=== PATIENT | male | born 1950 | race Caucasian/White ===

== ENCOUNTER 2016-09-22 12:42 | Inpatient (IN) | payer MEDICARE, OTHER ==
[~2016-09-22] VITALS: Ht 182.9 cm; Wt 85.4 kg
[2016-09-22] VITALS (10 sets, daily range): BP systolic 130–145; BP diastolic 69–85; PULSE 90–104; RESP 11–17; TEMP 97.1–97.6; O2SAT 94–100
[~2016-09-22 12:42] MED LIST: APIX5TAB PO; EX-L15TA PO; GLIP5TAB8 PO; LORA-361 PO; METO25TA6 PO; NEXI20CA PO; OXYC-395 PO; SPIRCAP INH; [UNRECOGNIZED DRUG - OTHER] PO
[2016-09-22] MEDS ORDERED: ESCI10TA PO (13:26)
[2016-09-22] MEDS ORDERED: DEXA1TAB PO (13:26)
[2016-09-22] MEDS ORDERED: OXYC1CON3 PO (13:29)
[2016-09-22 13:45] LABS: AUTOMATED NEUTROPHIL # 4.6 TH/MM3 (1.8-7.7); BASOPHIL % 0.9 % (0.0-2.0); EOSINOPHIL # 0.1 TH/MM3 (0-0.4); EOSINOPHIL % 1.4 % (0.0-4.0); HEMATOCRIT 30.1 % (39.0-51.0); LYMPH % 4.6 % (9.0-44.0); LYMPHOCYTE # 0.2 TH/MM3 (1.0-4.8); MEAN CELL VOLUME 96.4 FL (80.0-100.0); MEAN CORPUSCULAR HEMOGLOBIN 32.9 PG (27.0-34.0); MEAN CORPUSCULAR HGB CONC 34.1 % (32.0-36.0); NEUT % 88.1 % (16.0-70.0); PLATELET COUNT 63 TH/MM3 (150-450); RED BLOOD COUNT 3.12 MIL/MM3 (4.50-5.90); RED CELL DISTRIBUTION WIDTH 27.8 % (11.6-17.2); WHITE BLOOD COUNT 5.2 TH/MM3 (4.0-11.0)
[2016-09-22 13:48] LABS: HEMO FLAGS AUTO DIFF
[2016-09-22 13:52] LABS: ALT (GPT) 31 U/L (12-78); ANION GAP 8 MEQ/L (5-15); AST (GOT) 53 U/L (15-37); BICARBONATE 33.9 MEQ/L (21.0-32.0); BLOOD UREA NITROGEN 19 MG/DL (7-18); CHLORIDE 88 MEQ/L (98-107); GLOMERULAR FILTRATION RATE 57 ML/MIN (>89); MAGNESIUM 1.3 MG/DL (1.5-2.5); POTASSIUM 3.7 MEQ/L (3.5-5.1); SODIUM (NA) 130 MEQ/L (136-145)
[2016-09-22 13:56] LABS: APTT (PATIENT) 30.3 SEC (24.3-30.1); INTERNATIONAL NORMALIZED RATIO 1.1 RATIO; PROTHROMBIN TIME - PATIENT 12.1 SEC (9.8-11.6)
[2016-09-22 14:02] LABS: ALKALINE PHOSPHATASE 105 U/L (45-117); CREATINE KINASE 307 U/L (39-308); TOTAL BILIRUBIN ADULT 0.9 MG/DL (0.2-1.0)
--- NOTE | 2016-09-22 14:09 | RADRPT ---
EXAM DATE/TIME: 09/22/2016 13:19 [facility] COMPARISON: CHEST SINGLE AP, December 16, 2015, 16:31. INDICATIONS : Chest pain. MEDICAL HISTORY : None. SURGICAL HISTORY : None. ENCOUNTER: Initial ACUITY: 1 day PAIN SCORE: 2/10 LOCATION: Bilateral chest FINDINGS: The cardiac silhouette is enlarged in transverse diameter. The lungs are free of acute parenchymal op acity. No effusions are identified. Aibiqb-h-Sowv is in place via right subclavian approach with its tip in the superior vena cava. There is prominence of the aortic knob is with calcification character istic of atherosclerotic vascular disease. CONCLUSION: 1. Cardiomegaly. No acute pulmonary disease. Jesse Loya MD on September 22, 2016 at 14:07 Board Certified Radiologist. This report was verified electronically.
[2016-09-22 14:14] LABS: CKMB 6.8 NG/ML (0.5-3.6)
--- NOTE | 2016-09-22 14:19 | RADRPT ---
EXAM DATE/TIME: 09/22/2016 13:37 [facility] COMPARISON: CT BRAIN W/O CONTRAST, August 13, 2016, 13:34. INDICATIONS : Altered mental status today. RADIATION DOSE: 48.78 CTDIvol (mGy) MEDICAL HISTORY : Cardiovascular disease. Hypertension. Chronic obstructive pulmonary disease.diabetes,head and neck ca ncer SURGICAL HISTORY : None. ENCOUNTER: Initial ACUITY: 1 day PAIN SCALE: 5/10 LOCATION: cranial TECHNIQUE: Multiple contiguous axial images were obtained of the head. Using automated exposure control and adj ustment of the mA and/or kV according to patient size, radiation dose was kept as low as reasonably a chievable to obtain optimal diagnostic quality images. FINDINGS: CEREBRUM: The ventricles are normal for age. No evidence of midline shift, mass lesion, hemorrhage or acute in farction. No extra-axial fluid collections are seen. POSTERIOR FOSSA: The cerebellum and brainstem are intact. The 4th ventricle is midline. The cerebellopontine angle i s unremarkable. EXTRACRANIAL: The visualized portion of the orbits is intact. SKULL: The calvaria is intact. No evidence of skull fracture. CONCLUSION: 1. No evidence of acute intracranial pathology. No masses are identified. Jesse Loya MD on September 22, 2016 at 14:16 Board Certified Radiologist. This report was verified electronically.
[2016-09-22 14:24] LABS: PLATELET ESTIMATE SMEAR LOW (NORMAL); SCAN/DIFF AUTO DIFF CONFIRMED
[2016-09-22 14:25] LABS: PLATELET MORPHOLOGY NORMAL (NORMAL)
--- NOTE | 2016-09-22 14:26 | PD ---
HPI Chief Complaint: Back/ Neck Pain or Injury Time Seen by Provider: 13:14 Travel History International Travel<30 days: No Contact w/Intl Traveler<30days: No Traveled to known affect area: No History of Present Illness HPI 66-year-old male came to the emergency room with history of lethargy, somnolence for past couple days. Patient has history of malignancy with metastases and is on palliative chemotherapy. He has received radiation to his both sides of the neck for neck cancer. 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 His is his caregiver and has been giving him pain medication as needed for back pain relief. He received one pill prior to coming to the emergency room. He also got an Ambien. This morning since he was lethargic but uncomfortable. His daughter is here as well and they have informed me the patient has not been eating and drinking very well for the past couple days given his mental status. No fever or chills. No history of cough, vomiting or diarrhea. Patient has required admission in the past. [facility] Past Medical History Narrative Medical List of his past medical history as reviewed from the nursing note. Hx Anticoagulant Therapy: Yes (eliquis) Anemia: Yes Asthma: No Atrial Fibrillation: Yes Heart Rhythm Problems: Yes (AFIB) Cancer: Yes (head and neck) Cardiac Catheterization: Yes Cardiovascular Problems: Yes (AFIB, ANGIOPLASTY) Chemotherapy: Yes (09/16/16) COPD: Yes Coronary Artery Disease: Yes Diabetes: Yes Patient Takes Glucophage: No Diminished Hearing: Yes (UNALAKLEET) Endocrine: No Gastrointestinal Disorders: Yes (ANEMIA) Genitourinary: Yes (RENAL INSUFFICIENCY) Hepatitis: No Hiatal Hernia: No Hypertension: Yes Immune Disorder: No Medical other: Yes (A FIB,REFLUX AND BARRETTS ESOPHAGUS) Musculoskeletal: No Neurologic: No Psychiatric: No Reproductive: No Respiratory: Yes (COPD) Immunizations Current: Yes Myocardial Infarction: Yes ("SILENT") Radiation Therapy: Yes Renal Failure: Yes (NEW WORK UP FOR IMPAIRED KIDNEY FUNCTION) Thyroid Disease: No Tetanus Vaccination: Unknown Influenza Vaccination: No ?: Not Past Surgical History Abdominal Surgery: No AICD: No Cardiac Surgery: No Ear Surgery: No Endocrine Surgery: No Eye Surgery: No Genitourinary Surgery: No Gynecologic Surgery: No Joint Replacement: No Oral Surgery: No Pacemaker: No Thoracic Surgery: No Other Surgery: Yes ( port insertion, PED TUBE INCERTION/REMOVAL ) Social History Alcohol Use: Yes (DAILY ) Tobacco Use: No (QUIT-+NICOTINE LOZENGERS) Substance Use: No (quit alcohol in Sep) Allergies-Medications (Allergen,Severity, Reaction): Coded Allergies: Contrast Media (Verified Allergy, Mild, Hives, 08/13/16) Iodine (Verified Allergy, Unknown, 09/22/16) Comments List of his allergies reviewed from the nursing note. Reported Meds & Prescriptions Reported Meds & Active Scripts Active Reported Oxycodone Liq (Oxycodone HCl) 20 Mg/Ml Conc 5 Mg PO Q4H PRN Dexamethasone 1 Mg Tab 1 Mg PO DAILY Escitalopram (Escitalopram Oxalate) 10 Mg Tab 10 Mg PO DAILY Claritin (Loratadine) 10 Mg Tab 10 Mg PO DAILY Nexium (Esomeprazole DR) 20 Mg Capdr 20 Mg PO DAILY Glipizide 5 Mg Tab 5 Mg PO BIDAC Take 30 minutes before a meal Spiriva Handihaler (Tiotropium Inh) 18 Mcg Cap 18 Mcg INH DAILY 1 capsule = 18 mcg Ex-Lax (Sennosides) 15 Mg Tab 15 Mg PO BID PRN Metoprolol Succinate ER 24 HR (Metoprolol Succinate) 25 Mg Tab 25 Mg PO BID Narrative Medication List of his home medications reviewed from the nursing note. Review of Systems Except as stated in HPI: all other systems reviewed are Neg Physical Exam Narrative GENERAL: Somnolent, obese, slow in answering questions SKIN: Dry, jaundice HEAD: Atraumatic. Normocephalic. EYES: Pupils equal and round. Scleral icterus present. No injection or drainage. ENT: No nasal bleeding or discharge. Mucous membranes pink and moist. "baron facies" NECK: Trachea midline. No JVD. CARDIOVASCULAR: Regular rate and rhythm. No murmur appreciated. RESPIRATORY: No accessory muscle use. Clear to auscultation. Breath sounds equal bilaterally. GASTROINTESTINAL: Abdomen soft, non-tender, nondistended. Hepatic and splenic margins not palpable. MUSCULOSKELETAL: No obvious deformities. No clubbing. No cyanosis. No edema. NEUROLOGICAL: Somnolent, lethargic, GCS of 12. No obvious cranial nerve deficits. Motor grossly within normal limits. Slow speech. PSYCHIATRIC: Unable to assess. Data Data Last Documented VS Vital Signs Date Time Temp Pulse Resp B/P Pulse Ox O2 Delivery O2 Flow Rate FiO2 09/22/16 14:01 97.1 09/22/16 13:08 99 Nasal Cannula 2 09/22/16 13:08 92 16 09/22/16 12:51 132/69 Orders Electrocardiogram (09/22/16 12:51) Complete Blood Count With Diff (09/22/16 12:51) Comprehensive Metabolic Panel (09/22/16 12:51) Ckmb (Isoenzyme) Profile (09/22/16 12:51) Troponin I (09/22/16 12:51) Prothrombin Time / Inr (Pt) (09/22/16 12:51) Act Partial Throm Time (Ptt) (09/22/16 12:51) Blood Culture (09/22/16 12:51) Lipase (09/22/16 12:51) Urinalysis - C+S If Indicated (09/22/16 12:51) Magnesium (Mg) (09/22/16 12:51) Thyroid Stimulating Hormone (09/22/16 12:51) Chest, Single Ap (09/22/16 12:51) Ct Brain W/O Iv Contrast(Rout) (09/22/16 12:51) Iv Access Insert/Monitor (09/22/16 12:51) Ecg Monitoring (09/22/16 12:51) Oximetry (09/22/16 12:51) Ammonia (09/22/16 13:15) Type And Screen (09/22/16 13:15) Ct Abd/Pel W/O Iv Contrast (09/22/16 ) Ct Thorax/ Chest Wo Iv Contras (09/22/16 ) CKMB (09/22/16 13:20) CKMB% (09/22/16 13:20) Admit To Inpatient (09/22/16 ) Vital Signs (Adult) Q4H (09/22/16 14:18) Activity Oob With Assistance (09/22/16 14:18) Diet 1800 Ada Cons Carb (09/22/16 Dinner) Sodium Chloride 0.9% Flush (Ns Flush) (09/22/16 14:30) Sodium Chloride 0.9% Flush (Ns Flush) (09/22/16 21:00) Acetaminophen (Tylenol) (09/22/16 14:30) Docusate Sodium (Colace) (09/22/16 15:00) Sennosides (Senokot) (09/22/16 14:30) Temazepam (Restoril) (09/22/16 14:30) Case Management Consult (09/22/16 14:18) Scd Bilateral/Knee High UNA.BID (09/22/16 14:18) Hector Bilateral/Knee High UNA.QSHIFT (09/22/16 14:18) Oxycodone (Roxicodone) (09/22/16 14:30) Hydromorphone Pf Inj (Dilaudid Pf Inj) (09/22/16 14:30) Oxycodone (Roxicodone) (09/22/16 14:30) Naloxone Inj (Narcan Inj) (09/22/16 14:30) Inpatient Certification (09/22/16 ) Bedside Glucose UNA.AC&HS (09/22/16 14:18) ^ Blood Glucose Goal (Criteria (09/22/16 14:18) ^ Hypoglycemia 51 - 69 Mg/Dl (09/22/16 14:18) ^ Hypoglycemia 50 Mg/Dl Or < (09/22/16 14:18) ^ Notify Dr: Other (09/22/16 14:18) Dextrose 50% In Deneen (Vial) Inj (D50w (Vi (09/22/16 14:30) Glucagon Inj (Glucagon Inj) (09/22/16 14:30) Insulin Aspart Supplemtl Scale (Novolog (09/22/16 16:00) Albuterol-Ipratropium Neb (Duoneb Neb) (09/22/16 14:30) Urinary Catheter Insert/Apply (09/22/16 14:20) Free Thyroxine (T4) (09/22/16 14:20) Levothyroxine Inj (Synthroid Inj) (09/22/16 14:30) Levothyroxine (Synthroid) (09/22/16 14:30) Admit Order (Ed Use Only) (09/22/16 14:23) Labs Laboratory Tests Test 09/22/16 13:20 White Blood Count 5.2 TH/MM3 Red Blood Count 3.12 MIL/MM3 Hemoglobin 10.3 GM/DL Hematocrit 30.1 % Mean Corpuscular Volume 96.4 FL Mean Corpuscular Hemoglobin 32.9 PG Mean Corpuscular Hemoglobin 34.1 % Concent Red Cell Distribution Width 27.8 % Platelet Count 63 TH/MM3 Mean Platelet Volume 8.2 FL Neutrophils (%) (Auto) 88.1 % Lymphocytes (%) (Auto) 4.6 % Monocytes (%) (Auto) 5.0 % Eosinophils (%) (Auto) 1.4 % Basophils (%) (Auto) 0.9 % Neutrophils # (Auto) 4.6 TH/MM3 Lymphocytes # (Auto) 0.2 TH/MM3 Monocytes # (Auto) 0.3 TH/MM3 Eosinophils # (Auto) 0.1 TH/MM3 Basophils # (Auto) 0.0 TH/MM3 CBC Comment AUTO DIFF Differential Comment AUTO DIFF CONFIRMED Platelet Estimate LOW Platelet Morphology Comment NORMAL Prothrombin Time 12.1 SEC Prothromb Time International 1.1 RATIO Ratio Activated Partial 30.3 SEC Thromboplast Time Sodium Level 130 MEQ/L Potassium Level 3.7 MEQ/L Chloride Level 88 MEQ/L Carbon Dioxide Level 33.9 MEQ/L Anion Gap 8 MEQ/L Blood Urea Nitrogen 19 MG/DL Creatinine 1.27 MG/DL Estimat Glomerular Filtration 57 ML/MIN Rate Random Glucose 87 MG/DL Calcium Level 8.3 MG/DL Magnesium Level 1.3 MG/DL Total Bilirubin 0.9 MG/DL Aspartate Amino Transf 53 U/L (AST/SGOT) Alanine Aminotransferase 31 U/L (ALT/SGPT) Alkaline Phosphatase 105 U/L Ammonia LESS THAN 10 MCMOL/L Total Creatine Kinase 307 U/L Creatine Kinase MB 6.8 NG/ML Troponin I 0.06 NG/ML Total Protein 6.8 GM/DL Albumin 3.2 GM/DL Lipase 35 U/L Free Thyroxine 0.18 NG/DL Thyroid Stimulating Hormone 67.200 uIU/ML 3rd Gen Blood Type AB POSITIVE Antibody Screen NEGATIVE MDM Medical Decision Making Medical Screen Exam Complete: Yes Emergency Medical Condition: Yes Medical Record Reviewed: Yes Interpretation(s) Twelve-lead EKG was reviewed by me. Atrial fibrillation, PVCs, normal axis. Heart rate of 99 bpm. Differential Diagnosis Intracranial tumor, intracranial bleed, metabolic abnormalities, worsening of the cancer Narrative Course 2:31 PM patient continues to be somnolent however he is hemodynamically stable. The rectal temperature was 97.5. CAT scan shows a significantly distended bladder but patient does not appear to be in any distress from it. The nurse did ask him to urinate and patient was unable to do so and went back to sleep. I'm concerned that it could be from possible metastasis to the lumbar spine which may be compressing the cord. However the blood test results showed a TSH of 68 which is astronomically high. The daughter confirmed that the patient does not have any known history of hypothyroidism or hyperthyroidism and is not on any medications for it. Given the test result his hypothyroidism would actually explain all his symptoms including the skin color and the somnolence and constipation and loss of appetite. 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 I have ordered IV levothyroxine 600 g and by mouth Synthroid 100 g. Patient will also get 100 mg of IV hydrocortisone as a stress dose and 2 50 cc of IV fluid bolus. I spoke with the hospitalist who will admit this patient to the ICU. I have updated the family regarding the test results. Patient had a Nicole catheter put in and immediately almost a liter of urine came out. Critical Care Narrative Aggregate critical care time was 45 minutes. Time to perform other separately billable procedures was not included in the critical care time. My time did not include minutes spent treating any other patients simultaneously or on activities that did not directly contribute to the patient's treatment. The services I provided to this patient were to treat and/or prevent clinically significant deterioration that could result in: Altered mental status, myxedema coma, malignancy I provided critical care services requiring my management, as noted below: Chart data review, documentation time, medication orders and management, vital sign assessments/reviewing monitor data, ordering and reviewing lab tests, ordering and interpreting/reviewing x-rays and diagnostic studies, care of the patient and discussion of the patient with the admitting physicians. Procedures EKG Prior to Arrival: Yes Diagnosis Primary Impression: Myxedema coma Additional Impressions: Altered mental status Qualified Code: R40.1 - Stupor Urinary retention Admitting Information Admitting Physician Requests: Ester Diaz MD Sep 22, 2016 14:26
--- NOTE | 2016-09-22 14:29 | RADRPT ---
EXAM DATE/TIME: 09/22/2016 13:40 [facility] COMPARISON: No previous studies available for comparison. INDICATIONS : Generalize weakness. ORAL CONTRAST: No oral contrast ingested. RADIATION DOSE: 17.51 CTDIvol (mGy) ; Combined studies - Thorax/Abdomen/Pelvis MEDICAL HISTORY : Cardiovascular disease. Hypertension. Chronic obstructive pulmonary disease.Diabetes. Head and neck c ancer. SURGICAL HISTORY : None. ENCOUNTER: Initial ACUITY: 1 day PAIN SCALE: 5/10 LOCATION: abdomen TECHNIQUE: Volumetric scanning of the abdomen and pelvis was performed. Using automated exposure control and ad justment of the mA and/or kV according to patient size, radiation dose was kept as low as reasonably achievable to obtain optimal diagnostic quality images. FINDINGS: LOWER LUNGS: Very tiny left pleural effusion with bibasilar atelectatic changes. Small pericardial effusion. LIVER: Homogeneous density without lesion. There is no dilation of the biliary tree. No calcified gallston es. SPLEEN: Normal size without lesion. PANCREAS: Atrophic without mass lesion. KIDNEYS: Normal in size and shape. There is no mass, stone, or hydronephrosis. ADRENAL GLANDS: Within normal limits. VASCULAR: There is no aortic aneurysm. BOWEL/MESENTERY: The stomach, small bowel, and colon demonstrate no acute abnormality. There is no free intraperitone al air or fluid. ABDOMINAL WALL: Within normal limits. RETROPERITONEUM: There is no lymphadenopathy. BLADDER: No wall thickening or mass. REPRODUCTIVE: Within normal limits. INGUINAL: There is no lymphadenopathy or hernia. MUSCULOSKELETAL: There is a 4.0 x 2.9 cm soft tissue mass lesion on the left side of the L1 vertebral body with destru ction of the body and adjacent posterior elements. This may actually compromise the left L1 nerve rica t. In addition, dystrophic calcifications are identified in the slightly enlarged left psoas muscle p ossibly representing prior trauma. CONCLUSION: 1. 4.0 x 2.9 cm soft tissue mass lesion involving the left side of the L1 vertebral body. There is pa rtial destruction of both the vertebral body and adjacent posterior elements. The mass may also compr omise the left L1 nerve root. Findings are concerning for a neoplastic process. 2. Small pericardial effusion and small left-sided pleural effusion. Bibasilar atelectatic changes. 3. Dystrophic type calcifications in the enlarged left psoas muscle. Findings are nonspecific but may represent prior trauma with myositis ossificans. An infiltrative process cannot be completely exclud ed, however. Christian Brown MD on September 22, 2016 at 14:14 Board Certified Radiologist. This report was verified electronically.
[2016-09-22] MEDS ORDERED: LEVOTHYROXINE SODIUM 100 MCG TAB PO ONE (14:30)
[2016-09-22] MEDS ORDERED: TEMAZEPAM 15 MG CAP PO PRN (14:30)
[2016-09-22] MEDS ORDERED: RESP: ALBUTEROL 2.5 MG/IPRATROPIUM 0.5 MG NEB (PRN) NEB (14:30)
[2016-09-22] MEDS ORDERED: SODIUM CHLORIDE 0.9% FLUSH 5 ML FLUSH FLUSH PRN (14:30)
[2016-09-22] MEDS ORDERED: SODIUM CHLOR 0.9% 250 ML INJ 250 ML IV ONE (14:30)
[2016-09-22] MEDS ORDERED: GLUCAGON 1 MG/ML VIAL OTHER PRN ×2 (14:30→15:45)
[2016-09-22] MEDS ORDERED: HYDROmorphone HCL PF 1 MG/ML VIAL IV PRN (14:30)
[2016-09-22] MEDS ORDERED: ACETAMINOPHEN 325 MG TAB PO PRN (14:30)
[2016-09-22] MEDS ORDERED: LEVOTHYROXINE SODIUM 100 MCG VIAL IV PUSH ONE (14:30)
[2016-09-22] MEDS ORDERED: SENNOSIDES 8.6 MG TAB PO PRN (14:30)
[2016-09-22] MEDS ORDERED: NALOXONE HCL 0.4 MG/ML AMP IV PRN (14:30)
[2016-09-22] MEDS ORDERED: HYDROCORTISONE SOD SUCCINATE 100 MG VIAL IV PUSH ONE (14:30)
[2016-09-22] MEDS ORDERED: DEXTROSE 50% IN WATER 50 ML VIAL(D50) IV PUSH PRN ×2 (14:30→15:45)
--- NOTE | 2016-09-22 14:41 | RADRPT ---
EXAM DATE/TIME: 09/22/2016 13:40 [facility] COMPARISON: CT scan of the chest from [facility] dated 04-21-16. INDICATIONS : Generalizedq weakness. RADIATION DOSE: 17.59 CTDIvol (mGy) ; Combined studies MEDICAL HISTORY : Cardiovascular disease. Hypertension. Chronic obstructive pulmonary disease. Head and neck cancer,glenny betes SURGICAL HISTORY : None. ENCOUNTER: Initial ACUITY: 1 day PAIN SCALE: 5/10 LOCATION: chest TECHNIQUE: Volumetric scanning of the chest was performed. Using automated exposure control and adjustment of t he mA and/or kV according to patient size, radiation dose was kept as low as reasonably achievable to obtain optimal diagnostic quality images. FINDINGS: LUNGS: Multiple pulmonary nodules in both lungs are definitely no smaller and may actually be slightly large r when compared to the prior. PLEURAE: Small left pleural effusion with minimal bibasilar atelectatic changes. MEDIASTINUM: Mediastinal lymph nodes also show interval increase in size and it now demonstrates scattered areas o f calcification which were not present previously. This may be the effect of interval treatment. Stab le atherosclerotic calcification of the coronary arteries. Small pericardial effusion is definitely l arger when compared to the prior. AXILLAE: Within normal limits. No lymphadenopathy. MUSCULOSKELETAL: 4.1 x 3.4 cm soft tissue mass to the left of L1 with some destruction of the vertebral body and left sided posterior elements of L1. Please see CT scan of the abdomen for further characterization. MISCELLANEOUS: The visualized upper abdominal organs demonstrate no acute abnormality. CONCLUSION: 1. Overall, interval worsening in the tumor burden with multiple pulmonary mass lesions either stable to slightly enlarged when compared to the prior. 2. In addition, mediastinal lymph node/mass lesions are also larger and now show areas of calcificati on possibly related to interval treatment. 3. A 4 cm soft tissue mass lesion in the left of the L1 vertebral body with resultant destruction of the vertebral body and posterior elements was not present previously and is also concerning for metas tatic deposit. 4. Slight enlargement of the patient's pericardial effusion. This is still small, however. 5. Small left-sided pleural effusion. Christian Brown MD on September 22, 2016 at 14:28 Board Certified Radiologist. This report was verified electronically.
[2016-09-22] MEDS: DOCUSATE SODIUM 100 MG CAP PO SCH (15:23)
[2016-09-22] MEDS: INSULIN ASPART SUPPLEMENTAL SCALE SQ SCH ×2 (15:24→20:35)
--- NOTE | 2016-09-22 15:53 | HHI.HP ---
[facility] Norman Bentley MD Admission Diagnosis myxedema coma, malignancy with metastases Diagnoses: (1) Myxedema coma (2) Toxic metabolic encephalopathy (3) History of squamous cell carcinoma (4) Type 2 diabetes mellitus Chief Complaint: Increased somnolence, back pain Travel History International Travel<30 Days: No Contact w/Intl Traveler <30 Da: No Traveled to Known Affected Are: No History of Present Illness 66 year-old male with a history of SCC of right neck s/p radiation and chemotherapy treatment , type 2 diabetes mellitus, hyperlipidemia, hypertension , and stage 2 chronic renal failure was brought to the ED by family member for evaluation of lethargy, somnolence over the past several days. Patient with a history of metastasis to his lumbar spine requiring pain medications, however per family member has not received any narcotics over the past 24 hours and was only treated last night with Ambien. Patient was found to be tremendously lethargic this morning. Over the past several weeks patient has been complaining of worsening coldness. He has had decreased appetite and by mouth intakes over the past several days. There is no report of upper respiratory symptoms. Patient continued to complain of low back pain with decrease urine output output. Abnormal labs include TSH of 67.200 and free T4 of 0.18 with a temperature of 97.1 and a sodium of 1:30. There is no report of GI bleed, hemoptysis or hematuria. Review of Systems Other Other 12 systems reviewed and are negative except for the one mentioned in the history of present illness Past Family Social History Past Medical History Atrial fibrillation with RVR head and neck scc s/p radiation and chemotherapy treatment CAD Type 2 diabetes mellitus Hyperlipidemia Hypertension Hearing loss Anemia Stage 2 renal failure GERD with Cintron's Esophagus COPD "silent" VA Cataracts . Past Surgical History port insertion PEG tube placement Biopsy 2014 Colonoscopy 2012 Endoscopy 2012 Vasectomy 1972 Allergies: Coded Allergies: Contrast Media (Verified Allergy, Mild, Hives, 08/13/16) Iodine (Verified Allergy, Unknown, 09/22/16) Family History Brother diagnosed with mesothelioma No other first degree relatives with malignancy . Social History Used to smoke cigarettes, quit in October 2015, recently re-started. Used to drink alcoholabout 3 cocktails a nightquit earlier this year. Denies any drug abuse. Lives with his . 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 Cool HEAD: Atraumatic. Normocephalic. No temporal or scalp tenderness. EYES: Pupils equal round and reactive. Extraocular motions intact. No scleral icterus. No injection or drainage. ENT: Nose without bleeding, purulent drainage or septal hematoma. Throat without erythema, tonsillar hypertrophy or exudate. Uvula midline. Airway patent. NECK: Trachea midline. No JVD or lymphadenopathy. Supple, nontender, no meningeal signs. CARDIOVASCULAR: Regular rate and rhythm without murmurs, gallops, or rubs. RESPIRATORY: Clear to auscultation. Breath sounds equal bilaterally. No wheezes , rales, or rhonchi. GASTROINTESTINAL: Abdomen soft, non-tender, nondistended. No hepato-splenomegaly , or palpable masses. No guarding. MUSCULOSKELETAL: Extremities without clubbing, cyanosis, or edema. No joint tenderness, effusion, or edema noted. No calf tenderness. Negative Homans sign bilaterally. NEUROLOGICAL: Awake and alert. Cranial nerves II through XII intact. Motor and sensory grossly within normal limits. Five out of 5 muscle strength in all muscle groups. Laboratory Laboratory Tests Test 09/22/16 13:20 White Blood Count 5.2 Red Blood Count 3.12 Hemoglobin 10.3 Hematocrit 30.1 Mean Corpuscular Volume 96.4 Mean Corpuscular Hemoglobin 32.9 Mean Corpuscular Hemoglobin 34.1 Concent Red Cell Distribution Width 27.8 Platelet Count 63 Mean Platelet Volume 8.2 Neutrophils (%) (Auto) 88.1 Lymphocytes (%) (Auto) 4.6 Monocytes (%) (Auto) 5.0 Eosinophils (%) (Auto) 1.4 Basophils (%) (Auto) 0.9 Neutrophils # (Auto) 4.6 Lymphocytes # (Auto) 0.2 Monocytes # (Auto) 0.3 Eosinophils # (Auto) 0.1 Basophils # (Auto) 0.0 CBC Comment AUTO DIFF Differential Comment AUTO DIFF CONFIRMED Platelet Estimate LOW Platelet Morphology Comment NORMAL Prothrombin Time 12.1 Prothromb Time International 1.1 Ratio Activated Partial 30.3 Thromboplast Time Sodium Level 130 Potassium Level 3.7 Chloride Level 88 Carbon Dioxide Level 33.9 Anion Gap 8 Blood Urea Nitrogen 19 Creatinine 1.27 Estimat Glomerular Filtration 57 Rate Random Glucose 87 Calcium Level 8.3 Magnesium Level 1.3 Total Bilirubin 0.9 Aspartate Amino Transf 53 (AST/SGOT) Alanine Aminotransferase 31 (ALT/SGPT) Alkaline Phosphatase 105 Ammonia LESS THAN 10 Total Creatine Kinase 307 Creatine Kinase MB 6.8 Troponin I 0.06 Total Protein 6.8 Albumin 3.2 Lipase 35 Free Thyroxine 0.18 Thyroid Stimulating Hormone 67.200 3rd Gen Blood Type AB POSITIVE Antibody Screen NEGATIVE Date/Time Procedure Status Source Growth 09/22/16 13:25 Aerobic Blood Culture Received Blood Peripheral Pending 09/22/16 13:25 Anaerobic Blood Culture Received Blood Peripheral Pending Result Diagram: 09/22/16 1320 09/22/16 1320 Imaging Last Impressions Head CT 09/22/16 1251 Signed Impressions: Service Date/Time: September 13:37 - CONCLUSION: 1. No evidence of acute intracranial pathology. No masses are identified. Jesse Loya MD Chest X-Ray 09/22/16 1251 Signed Impressions: Service Date/Time: September 13:19 - CONCLUSION: 1. Cardiomegaly. No acute pulmonary disease. Jesse Loya MD Chest CT 09/22/16 0000 Signed Impressions: Service Date/Time: September 13:40 - CONCLUSION: 1. Overall , interval worsening in the tumor burden with multiple pulmonary mass lesions either stable to slightly enlarged when compared to the prior. 2. In addition, mediastinal lymph node/mass lesions are also larger and now show areas of calcification possibly related to interval treatment. 3. A 4 cm soft tissue mass lesion in the left of the L1 vertebral body with resultant destruction of the vertebral body and posterior elements was not present previously and is also concerning for metastatic deposit. 4. Slight enlargement of the patient's pericardial effusion. This is still small, however. 5. Small left-sided pleural effusion. Christian Brown MD Abdomen/Pelvis CT 09/22/16 0000 Signed Impressions: Service Date/Time: September 13:40 - CONCLUSION: 1. 4.0 x 2.9 cm soft tissue mass lesion involving the left side of the L1 vertebral body. There is partial destruction of both the vertebral body and adjacent posterior elements. The mass may also compromise the left L1 nerve root. Findings are concerning for a neoplastic process. 2. Small pericardial effusion and small left-sided pleural effusion. Bibasilar atelectatic changes. 3. Dystrophic type calcifications in the enlarged left psoas muscle. Findings are nonspecific but may represent prior trauma with myositis ossificans. An infiltrative process cannot be completely excluded, however. Christian Brown MD Assessment and Plan Problem List: (1) Myxedema coma ICD Code: E03.5 Status: Acute (2) History of squamous cell carcinoma ICD Code: Z85.89 (3) Type 2 diabetes mellitus ICD Code: E11.9 Status: Chronic (4) Toxic metabolic encephalopathy ICD Code: G92 Status: Acute Assessment and Plan 66-year-old male with Myxedema Coma: TSH of 67.200 and Free T4 of 0.18; s/p levothyroxine 600mcg x1 and Solu-Cortef 100mg x 1in ED; will give Liothyronine 25mcg X 1 now and start Liothyronine 5mcg Q12H as well as Synthroid 5omcg daily and Solu-Cortef 100mg Q8H. admitted in ICU, telemetry monitoring and treat hypothermia Hyponatremia: Will avoid IV fluid hydration secondary to myxedema as patient on thyroid replacement therapy Toxic metabolic encephalopathy: CT Head Negative; Nh3 wnl. Likely secondary to myxedema coma History of metastasis SCC of the head and neck: CT chest noted and reviewed by me with finding of metastases as well as CT abdomen/pelvis; courtesy consult to Dr. Urrutia Chronic back pain: CT abdomen/pelvic noted and reviewed by me with finding of 1. 4.0 x 2.9 cm soft tissue mass lesion involving the left side of the L1 vertebral body in a patient with a known history of metastasis SCC; check lumbar spine CT. Patient with history of radiation and chemotherapy, May consider neurosurgery consultation if bladder and bowel dysfunction. Pain management accordingly. PT consult to treat and eval Diabetes type 2: Hold oral hypoglycemic agent, start insulin sliding scale with fingerstick blood glucose monitoring Hypertension: Resume Lopressor Anxiety: Resume Effexor DVT prophylaxis: Hold anticoagulation; bilateral SCDs Code Status Full code Discussed Condition With Patient, , daughter, ED physician Physician Certification 2 Midnight Certification Type: Admission for Inpatient Services Order for Inpatient Services The services are ordered in accordance with Medicare regulations or non- Medicare payer requirements, as applicable. In the case of services not specified as inpatient-only, they are appropriately provided as inpatient services in accordance with the 2-midnight benchmark. Estimated LOS (days): 2 days is the estimated time the patient will need to remain in the hospital, assuming treatment plan goals are met and no additional complications. Post-Hospital Plan: Not yet determined Eze De Luna MD Sep 22, 2016 15:53
[2016-09-22 15:59] LABS: BLOOD, URINE NEG (NEG); COMMENT (UR) CULT NOT INDICATED; CULTURE IF INDICATED CULT NOT INDICATED; GLUCOSE,URINE NEG (NEG); KETONE, URINE NEG (NEG); NITRITE,URINE NEG (NEG); URINE COLOR YELLOW (YELLW/STRAW)
[2016-09-22] MEDS ORDERED: INSULIN ASPART SUPPLEMENTAL SCALE SQ SCH (16:00)
[2016-09-22] MEDS ORDERED: LIOTHYRONINE SODIUM 25 MCG TAB PO ONE (17:00)
--- NOTE | 2016-09-22 17:56 | RADRPT ---
EXAM DATE/TIME: 09/22/2016 13:40 [facility] COMPARISON: CT THORAX W/O CONTRAST, September 22, 2016, 13:40. INDICATIONS : Structured mass involving the L1 vertebra.. RADIATION DOSE: ; Reconstructed from previous dataset MEDICAL HISTORY : Cardiovascular disease. Hypertension. Diabetes mellitus type 2. Head and neck cancer. SURGICAL HISTORY : None. ENCOUNTER: Initial ACUITY: 1 day PAIN SCALE: 0/10 LOCATION: back. TECHNIQUE: Volumetric scanning of the lumbar spine was performed. Multiplanar reconstructions in the sagittal, coronal and oblique axial planes were performed. Using automated exposure control and adjustment of the mA and/or kV according to patient size, radiation dose was kept as low as reasonably achievable t o obtain optimal diagnostic quality images. FINDINGS: VERTEBRAE: Normal vertebral body height. A destructive mass is again noted involving left posterior lateral L1 v ertebral body and pedicle as well as a portion of the anterior transverse process and lamina. ALIGNMENT: No evidence of subluxation. T12-L1: A destructive soft tissue mass is again noted involving the left L1 posterior and lateral vertebral b audra, pedicle and portion of the transverse process and proximal lamina. The soft tissue mass measures up to 3.8 x 3.7 cm in greatest AP and transverse diameter and invades the left neural foramina and a buts the left side of the thecal sac. This is poorly defined. L1-L2: The thecal sac has a normal diameter. No evidence of disc bulge or protrusion. The neural foramina are patent bilaterally. L2-L3: The thecal sac has a normal diameter. No evidence of disc bulge or protrusion. The neural foramina are patent bilaterally. L3-L4: The thecal sac has a normal diameter. No evidence of disc bulge or protrusion. The neural foramina are patent bilaterally. L4-L5: There is a mild annular disc bulge with mild flattening the anterior thecal sac and no focal protrusi on. There are degenerative changes involving the facet joints. The neural foramina are patent bilater ally. L5-S1: The thecal sac has a normal diameter. No evidence of disc bulge or protrusion. The neural foramina are patent bilaterally. There mild degenerative changes involving the facet joints. CONCLUSION: Destructive soft tissue mass involving the L1 vertebra as noted. This is characterist ic of metastatic disease.. Berhane Pavon MD on September 22, 2016 at 17:49 Board Certified Radiologist. This report was verified electronically.
--- NOTE | 2016-09-22 19:48 | MB ---
cc: ALICIA GARLAND,CARINA Marinelli M.D. DATE OF CONSULTATION: 09/22/2016. REASON FOR CONSULTATION / CHIEF COMPLAINT: Dr. Ryan requested consultation for Mr. Joiner regarding metastatic head and neck cancer. PRIMARY PHYSICIAN: Dr. Garland. HISTORY OF PRESENT ILLNESS: Mr. Joiner is a 65-year-old man well-known patient with metastatic squamous cell cancer. He had squamous cell cancer p16 positivity of unknown primary. He progressed after initial completion of definitive concurrent chemotherapy and radiation. He was confirmed to have metastatic disease at the [facility] from a CT-guided lung biopsy. He was treated with first-line pembrolizumab. He progressed on pembrolizumab. He had evidence of hypothyroidism associated with the pembrolizumab back in June. His hypothyroidism unfortunately was suboptimally treated. After progressing on pembrolizumab, he was placed on palliative combination chemotherapy and progressed after two cycles. He presented with back pain and was found to have an L1 and L3 lesion. He was referred to Dr. Valdes for palliative radiation. He was placed on Decadron for adjunctive therapy for pain and swelling. He did not have any neurologic deficit from the soft tissue lesions in L1 and L3. His systemic chemo regimen was changed to cetuximab. He was last seen week ago in oncology clinic with his son. At that time Mr. Joiner appeared to have had a decrease in performance status. He seemed quite sleepy. He appeared to the cushingoid. His Decadron was decreased to 1 mg twice a day. His controlled on p.r.n. pain medication and his pain regimen was refilled He has trouble with sleep and Ambien was prescribed. On the day of his admission, his found him to be quite sleepy and lethargic in the morning. He had had no difficulty sleeping the night before and took an Ambien. In the morning, he appeared to have confusion and could not be woken to transfer to the emergency room. [facility] was called. His called the oncology clinic to let us know of these events. The patient was discussed with the ER physician. He came in with lethargy and somnolence. He has an elevated TSH and therefore is treated for myxedema coma. He was subsequently transferred to the ICU. Mr. Joiner complains of being hospitalized. His controlled in his back unless he is being moved. He is still quite sleepy but actually talkative. He denies any headaches. No vision changes. He has less plethora. He is lethargic but coherent. His appetite was reported good by his . He has had constipation and dry skin. He has had cold feet. The rest of his review of systems is negative. PAST MEDICAL HISTORY: 1. Anemia. 2. Cintron's esophagus. 3. Cataract. 4. Diabetes type 2. 5. Gastroesophageal reflux. 6. Atrial fibrillation. 7. Squamous cell carcinoma of the right neck with metastatic disease. 8. COPD. PAST SURGICAL HISTORY: 1. Lung biopsy. 2. Neck biopsy. 3. Endoscopy. 4. Vasectomy. 5. Port placement. SOCIAL HISTORY: He used to drink daily. Quit smoking recently and uses nicotine lozenges. Denies any illicit drug use. He is and lives with his . FAMILY HISTORY: His father had mesothelioma. No other first degree relatives with malignancy. PHYSICAL EXAMINATION: VITAL SIGNS: Temperature 97.1, heart rate 90, respiratory rate 17, blood pressure 143/85, saturation 100%. GENERAL: Mr. Joiner is a well-developed, well-nourished man. He is heavy-set with a round face. He has less edema of the face. HEAD, EYES, EARS, NOSE, THROAT: His pupils are round and reactive. Oropharynx is dry. NECK: The neck is supple but has brawny feel from post radiation treatment. LUNGS: Clear anteriorly. CARDIOVASCULAR: Normal rate and rhythm. ABDOMEN: Large. LOWER EXTREMITIES: With no edema. Dry skin. LABORATORY DATA: Significant for hyponatremia, BUN of 19, creatinine 1.2. TSH is 67. Lipase 35. Hemoglobin 10.3, platelet count 63,000. ASSESSMENT AND PLAN: Mr. Joiner is a 66-year-old man with multiple medical problems described above. He has a history of metastatic squamous cell carcinoma of the head and neck. His course was complicated by severe hypothyroidism, untreated, probably from the pembrolizumab versus radiation of his neck. Lengthy discussion with Mr. Joiner and his as well as the ER physician about treatment of his hypothyroidism. They are hopeful that the hypothyroidism is the main cause of his lethargy and decrease in performance status. The case was also discussed with Dr. Phelan to meet with the family tomorrow. He will discuss with the family about the palliative care options. We are hopeful of response to treatment that Mr. Joiner would be able to participate in the discussion and be aware and able to make informed decisions. His treatment with cetuximab is scheduled for next week. Further treatment is placed on hold pending on his decision. He has completed palliative radiation to his back. His restaging evaluation was not scheduled until three weeks from now. Their questions were answered to their satisfaction. I would be supportive of Mr. Joiner's and his 's decision to proceed with palliative care. He is only receiving cetuximab as therapy from the medical oncology standpoint. MD TIFFANIE Briceno/JCC /6:02 PM /7:14 PM
[2016-09-22] MEDS: SODIUM CHLORIDE 0.9% FLUSH 5 ML FLUSH FLUSH SCH (20:31)
[2016-09-22] MEDS: METOPROLOL SUCCINATE 25 MG EXTENDED RELEASE TAB PO SCH (20:35)
[2016-09-22] MEDS: HYDROCORTISONE SOD SUCCINATE 100 MG VIAL IV PUSH SCH (20:36)
[2016-09-22] MEDS ORDERED: CHLORHEXIDINE GLUCONATE 2 % 1 PACK (2 CLOTHS)(extra cloths) TOP PRN (21:00)
[2016-09-22] MEDS: MAGNESIUM SULFATE 1 GM PREMIX 100 ML IV SCH ×2 (22:18→23:00)
[2016-09-23] VITALS (12 sets, daily range): BP systolic 114–151; BP diastolic 66–82; PULSE 78–91; RESP 10–20; TEMP 97.5–98.4; O2SAT 93–100
[2016-09-23] MEDS: CHLORHEXIDINE GLUCONATE 2 % 1 PACK (2 CLOTHS)(taper/protocol) TOP SCH (04:00)
[2016-09-23] MEDS: LIOTHYRONINE SODIUM 5 MCG TAB PO SCH ×2 (04:28→15:05)
[2016-09-23] MEDS: DOCUSATE SODIUM 100 MG CAP PO SCH ×2 (04:28→15:05)
[2016-09-23] MEDS: HYDROCORTISONE SOD SUCCINATE 100 MG VIAL IV PUSH SCH ×3 (04:31→20:58)
[2016-09-23] MEDS: LEVOTHYROXINE SODIUM 100 MCG VIAL IV PUSH SCH (04:32)
[2016-09-23] MEDS: INSULIN ASPART SUPPLEMENTAL SCALE SQ SCH ×4 (07:00→21:00)
[2016-09-23 08:38] LABS: AUTOMATED NEUTROPHIL # 5.4 TH/MM3 (1.8-7.7); BASOPHIL % 0.1 % (0.0-2.0); HEMATOCRIT 26.9 % (39.0-51.0); LYMPH % 4.3 % (9.0-44.0); LYMPHOCYTE # 0.3 TH/MM3 (1.0-4.8); MEAN CELL VOLUME 93.7 FL (80.0-100.0); MEAN CORPUSCULAR HEMOGLOBIN 33.3 PG (27.0-34.0); MEAN CORPUSCULAR HGB CONC 35.6 % (32.0-36.0); MONO % 4.2 % (0.0-8.0); NEUT % 91.4 % (16.0-70.0); PLATELET COUNT 55 TH/MM3 (150-450); RED BLOOD COUNT 2.87 MIL/MM3 (4.50-5.90); RED CELL DISTRIBUTION WIDTH 26.2 % (11.6-17.2); WHITE BLOOD COUNT 5.9 TH/MM3 (4.0-11.0)
[2016-09-23 08:42] LABS: HEMO FLAGS AUTO DIFF
[2016-09-23] MEDS: SODIUM CHLORIDE 0.9% FLUSH 5 ML FLUSH FLUSH SCH ×2 (09:00→20:57)
[2016-09-23] MEDS: TIOTROPIUM BROMIDE 18 MCG INH INH SCH (09:00)
[2016-09-23 09:01] LABS: ALKALINE PHOSPHATASE 101 U/L (45-117); ALT (GPT) 28 U/L (12-78); ANION GAP 9 MEQ/L (5-15); AST (GOT) 42 U/L (15-37); BICARBONATE 31.1 MEQ/L (21.0-32.0); BLOOD UREA NITROGEN 17 MG/DL (7-18); CHLORIDE 89 MEQ/L (98-107); GLOMERULAR FILTRATION RATE 70 ML/MIN (>89); POTASSIUM 3.6 MEQ/L (3.5-5.1); SODIUM (NA) 129 MEQ/L (136-145); TOTAL BILIRUBIN ADULT 0.8 MG/DL (0.2-1.0)
[2016-09-23] MEDS: LORATADINE 10 MG TAB PO SCH (09:07)
[2016-09-23] MEDS: ESCITALOPRAM OXALATE 10 MG TAB PO SCH (09:07)
[2016-09-23] MEDS: METOPROLOL SUCCINATE 25 MG EXTENDED RELEASE TAB PO SCH ×2 (09:07→20:58)
[2016-09-23] MEDS: NYSTAT/DIPHENHY/LIDO MOUTHWASH (Adult) 120ML SWISH-SWAL SCH ×4 (10:00→20:58)
[2016-09-23] MEDS ORDERED: INFLUENZA VIRUS VACCINE (QUADRIVALENT) 0.5 ML SYR IM ONE (10:00)
[2016-09-23 10:12] LABS: SCAN/DIFF AUTO DIFF CONFIRMED
--- NOTE | 2016-09-23 10:36 | PD.CONS ---
Consult Service Palliative Care . Consult Requested By Dr. De Luna . Primary Care Physician Norman Bentley MD . Reason for Consultation a. To assist with evaluation and management of symptoms including: pain; lethargy' generalized weakness b. To assist medical decision maker(s) with: better understanding of current medical conditions; weighing benefits/burdens of medical treatment options; making medical treatment decisions. . HPI History of Present Illness This is the third [facility] admission in the last year for this 66 y/o male with known metastatic head/neck cancer currently receiving palliative radiation and chemotherapy; diabetes mellitus; hypertension; and stage II chronic kidney disease; who presented to the ED on 09/22/16 complaining of increasing lethargy and weakness over the last week or so which had escalated to the point where he was barely able to get up out of bed. There has been a significant decrease in eating/drinking over the last few days. The patient had been using oxycodone immediate release 5 mg every 4 hours as needed for back pain associated with bony metastasis, but had not received any in the 24 hours prior to presentation. He did receive Ambien the night before presentation which had been presribed approximately a week earlier. There were no reports of fevers, chills, chest pain, nausea, vomiting. The patient had complained of increasing coldness. The patient has been under the care of medical oncology since his initial presentation with his squamous cell head and neck cancer. Unfortunately, there was tumor progression after completing initial definitive concurrent chemotherapy and radiation therapy. After a CT-guided lung biopsy confirmed metastatic disease, he was placed on pembrolizumab. Once again, there was disease progression in spite of treatment. Also, hypothyroidism was noted back in 06/2016 and was thought to be secondary to this chemotherapy. Mr. Joiner was then started on palliative combination (pokagon + 5FU) chemotherapy. Once again there was progression. He developed back pain-- lesions at L1 and L3 were discovered. Dexamethasone was started for pain and swelling. Radiation to the lumbar regions was begun and the systemic chemotherapy was changed to cetuximab. Per medical oncology, the patient appeared lethargic and cushingoid about one week ago and dexamethasone dosing was decreased. Patient reports that his pain has been moderate in intensity and readily managed. He gets primarily low back pain which is worse with movement. He reports that 5 mg of immediate release oxycodone eradicates the pain. He will use 2-3 doses of the oxycodone on a typical day. Upon presentation to the ED , initial vital signs were as follows: Temperature 97.1; pulse 91; respiratory rate 16; blood pressure 132/69; pulse oximetry 97% on room air Initial physical exam by the emergency pressing department supervisor noted the following : Patient was somnolent and slow in answering questions. Jaundice was noted. Skin was dry. Scleral icterus was present. Tang facies was noted. The remainder of the exam was unremarkable Initial diagnostic testing revealed the following: * CBC showed WBC 5.2; hemoglobin 10.3; platelet count 63 * Coagulation profile showed PT 12.1; INR 1.1; PTT 30.3 * Chemistry profile showed sodium 1:30; potassium 3.7; chloride 88; CO2 33.9; anion gap 8; BUN 19; creatinine 1.27; GFR 57; glucose 87; calcium 8.3; magnesium 1.3 * Liver function studies showed total bilirubin 0.9; AST 53; ALT 31; alkaline phosphatase 105; ammonia less than 10; total protein 6.8; albumin 3.2 * Troponin was less than 0.06 * Lipase is 35 * Thyroid function studies showed free thyroxine at 0.18; TSH 67.2 * Urinalysis was unremarkable * 12-lead EKG revealed atrial fibrillation with occasional PVCs and heart rate of 99 * Chest x-ray revealed no acute pulmonary disease. Cardiomegaly was noted. * CT of the abdomen and pelvis confirmed the L1 vertebral body lesion. There was partial destruction of both the vertebral body and adjacent posterior elements. There was concern that the mass might be compromising the L1 nerve root. There is a small pericardial effusion and small left-sided pleural effusion. * Chest CT showed worsening tumor burden compared to the previous evaluation with multiple pulmonary mass lesions. There is increase in size of the mediastinal lymph nodes. 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 In the ED he was given 600 g intravenous levothyroxine and started on Synthroid by mouth at 100 g. He was given 100 mg of intravenous hydrocortisone and given a fluid bolus. The patient was admitted to the hospitalist service and brought to the intensive care unit for close monitoring. . Function/Cognitive Trajectory Per patient and his , the patient's functional status was acceptable until the relatively rapid decline in alertness and strength now attributed to his hypothyroidism. Patient was using a walker at home pirmarily for balance. He bathed, toileted, dressed, fed himself. He was able to go out and enjoy rides in the care. He had back pain, but tells me it was readily treated with 2-3 oxycodone 5 mg per day. . Review of Systems Constitutional: COMPLAINS OF: Fatigue, Weight gain, Change in appetite, Pain, Generalized weakness, Sleep problems, DENIES: Fever, Chills Endocrine: DENIES: Polydipsia, Polyuria, Polyphagia Eyes: COMPLAINS OF: Vision loss (wears reading glasses) Ears, nose, mouth, throat: COMPLAINS OF: Hearing loss, Throat pain, Epistaxis, DENIES: Ear Pain Respiratory: COMPLAINS OF: Cough, Shortness of breath, DENIES: Apneas, Hemoptysis Cardiovascular: COMPLAINS OF: Dyspnea on Exertion, DENIES: Chest pain, Palpitations, Syncope, Lower Extremity Edema Gastrointestinal: COMPLAINS OF: Constipation, Dyspepsia or heartburn, DENIES: Abdominal pain, Diarrhea, Nausea, Vomiting, Difficulty Swallowing, Vomiting blood Genitourinary: DENIES: Hematuria, Dysuria Musculoskeletal: COMPLAINS OF: Muscle aches, Back pain, Neck pain Integumentary: COMPLAINS OF: Excessive dryness Hematologic/Lymphatics: DENIES: Bruising, Lymphadenopathy Immunologic/Allergic: DENIES: Urticaria Neurologic: COMPLAINS OF: Abnormal gait (Uses walker), Poor Balance, DENIES: Headache, Seizures, Tremor Psychiatric: COMPLAINS OF: Confusion, Depression (Managed with escitalopram), DENIES: Anxiety Past Family Social History Coded Allergies: Contrast Media (Verified Allergy, Mild, Hives, 08/13/16) Iodine (Verified Allergy, Unknown, 09/22/16) Past Medical History head and neck scc s/p radiation and chemotherapy treatment -- cancer continues to progress in spite of multiple treatments. Known mets in lungs, L1, L3 Atrial fibrillation with RVR CAD s/p silent IA Type 2 diabetes mellitus Hyperlipidemia Hypertension Hearing loss Anemia Stage 2 CKD GERD Cintron's Esophagus COPD Cataracts . Past Surgical History port insertion PEG tube placement Biopsy 2014 Colonoscopy 2012 Endoscopy 2013 Vasectomy 1972 Reported Medications Pre-hospital medications included the following: Oxycodone Liq (Oxycodone HCl) 20 Mg/Ml Conc 5 Mg PO Q4H PRN Dexamethasone 1 Mg Tab 1 Mg PO DAILY Escitalopram (Escitalopram Oxalate) 10 Mg Tab 10 Mg PO DAILY Claritin (Loratadine) 10 Mg Tab 10 Mg PO DAILY Nexium (Esomeprazole DR) 20 Mg Capdr 20 Mg PO DAILY Glipizide 5 Mg Tab 5 Mg PO BIDAC Spiriva Handihaler (Tiotropium Inh) 18 Mcg Cap 18 Mcg INH DAILY Ex-Lax (Sennosides) 15 Mg Tab 15 Mg PO BID PRN Metoprolol Succinate ER 24 HR (Metoprolol Succinate) 25 Mg Tab 25 Mg PO BID . Current Medications Medications (Trade) Dose Ordered Sig/Jacqueline Route Start Time Stop Time Status Last Admin (NS Flush) 2 ml UNSCH PRN FLUSH 09/22/16 14:30 (NS Flush) 2 ml BID FLUSH 09/22/16 21:00 09/23/16 09:00 (Tylenol) 650 mg Q4H PRN PO 09/22/16 14:30 (Colace) 100 mg Q12H PO 09/22/16 15:00 09/23/16 04:28 (Senokot) 17.2 mg Q12H PRN PO 09/22/16 14:30 (Restoril) 15 mg HS PRN PO 09/22/16 14:30 (Roxicodone) 10 mg Q4H PRN PO 09/22/16 14:30 09/23/16 09:07 (Dilaudid Pf Inj) 1 mg Q3H PRN IV 09/22/16 14:30 09/22/16 18:09 (Roxicodone) 5 mg Q4H PRN PO 09/22/16 14:30 (Narcan Inj) 0.4 mg UNSCH PRN IV 09/22/16 14:30 (D50w (Vial) Inj) 25 ml UNSCH PRN IV PUSH 09/22/16 14:30 (Glucagon Inj) 1 mg UNSCH PRN OTHER 09/22/16 14:30 (Synthroid Inj) 50 mcg DAILY@06 IV PUSH 09/23/16 06:00 09/23/16 04:32 (Cytomel) 5 mcg Q12H PO 09/23/16 02:00 09/23/16 04:28 (SoluCORTEF INJ) 100 mg Q8HR IV PUSH 09/22/16 22:00 09/23/16 04:31 (Lexapro) 10 mg DAILY PO 09/23/16 09:00 09/23/16 09:07 (Claritin) 10 mg DAILY PO 09/23/16 09:00 09/23/16 09:07 (Toprol Xl) 25 mg BID PO 09/22/16 21:00 09/23/16 09:07 (Spiriva Inh) 18 mcg DAILY INH 09/23/16 09:00 09/23/16 09:00 Miscellaneous Information Patient in critical care unit? Ass... Q361D XX 09/22/16 21:00 (Chlorhexidine 2% Cloth) 3 pack DAILY@04 TOP 09/23/16 04:00 09/27/16 04:01 09/23/16 04:00 (Chlorhexidine 2% Cloth) 3 pack UNSCH PRN TOP 09/22/16 21:00 09/27/16 20:47 (Magic Mouthwash Adult Liq) 10 ml QID SWISH-SWAL 09/23/16 10:00 Family History Brother diagnosed with mesothelioma No other first degree relatives with malignancy . Substance Use Tobacco: 51 pack-year history. Had quit cigarette smoking in Oct 2015, but recently re-started. Alcohol: Up until recently, would consume 4-5 drinks/night. Prescription med abuse: No known abuse. Illicits: No known use of illicits. . Psychosocial History Born and raised in [place]. Moved to [place] in early . Completed high school and some college. 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 twice. to current , Mildred, for 17 years. Two children -- Ana M (a local primary care physician) and Janelle -- both of whom are local. One grandchild. Patient lives at home with his . . Spiritual/Cultural Factors Patient comes from a Sikh tradition. He attends [employer] on occasion. Though organized adventist is not a large part of his life, he feels people should treat each other with Church values every day. "I hate hypocrisy." . Living Will: Completed, but not made available Health Care Surrogate: Copy in medical record Durable Power of [employer] Factory Worker: Never completed Date completed: A health care surrogate designation dated 03/02/15 is scanned into the EMR. Patient and report a living will has been completed we don't have a copy on file. . Health Care Surrogate(s): Mildred Joiner and Ana M Scherer are listed as the designated joint surrogates. . Documented care wishes: No written documentation of health care preferences/goals on file. . Today's verbally stated goals: Patient wants to continue to fight the cancer. He feels his current quality of life is worth fighting for and he is willing to risk further decline/ complications to try and preserve it with cancer-directed treatments. He also tells me that as long as he remains alive, a check will keep coming to the household which is important to him. . Family/friends goals: wants to continue the current immunotherapy and radiation therapy plan if possible. If there is further progression in spite of these therapies and/or there is significant functional decline, she appears more open to transitioning to comfort measures only. . Ethical and Legal Issues Patient is currently capacitated to make his own health care decisions. Should he become incapacitated, his and his daughter (Jessica) are the designated joint surrogates. . Physical Exam Vital Signs Date Time Temp Pulse Resp B/P Pulse Ox O2 Delivery O2 Flow Rate FiO2 09/23/16 06:00 78 09/23/16 04:00 85 09/23/16 04:00 97.7 85 12 123/66 94 09/23/16 02:00 83 09/23/16 00:00 98.1 86 10 132/71 93 09/23/16 00:00 86 09/22/16 22:00 100 09/22/16 20:00 103 09/22/16 20:00 97.6 103 11 142/81 96 09/22/16 19:10 99 Nasal Cannula 2.00 09/22/16 18:00 104 09/22/16 17:00 90 17 143/85 100 Room Air 09/22/16 16:00 90 15 130/80 100 Room Air 09/22/16 15:00 104 15 145/80 97 Room Air 09/22/16 14:01 97.1 1/19/17 13:08 99 Nasal Cannula 2 09/22/16 13:08 92 16 09/22/16 13:07 94 Room Air 09/22/16 12:51 91 16 132/69 97 . 09/22/16 09/23/16 19:00 07:00 Intake Total 120 ml Output Total 1065 ml Balance -945 ml Intake Oral 120 ml Output Urine Total 1065 ml # Voids 0 . Exam CONSTITUTIONAL/GENERAL: This is a well nourished patient resting comfortably in an ICU bed. Patient answers questions appropriately but speech is often hard to understand. TUBES/LINES/DRAINS: Nasal cannula 02; jackson catheter; peripheral IV; SKIN: No jaundice, rashes, or lesions. No wounds seen anteriorly. Skin temperature appropriate. Not diaphoretic. HEAD: Atraumatic. Some generalized facial puffiness. EYES: Pupils equal and round and reactive. Extraocular motions intact. No scleral icterus. No injection or drainage. Fundi not examined. ENT: Hard of hearing. Nose without bleeding or purulent drainage. Some deformity and purulent discharge along right side of lower tooth/gum line. NECK: Trachea midline. Mild diffuse tenderness slightly worse on right. No palpable thyroid enlargement or nodularity. CARDIOVASCULAR: Irregular rhythm ; rate around 80 -- without murmurs, gallops, or rubs. No JVD though difficult to assess due to neck obesity. Peripheral pulses symmetric. RESPIRATORY/CHEST: Symmetric, unlabored respirations. Faint expiratory wheeze heard bilaterally. Breath sounds equal bilaterally. No rales, or rhonchi. GASTROINTESTINAL: Abdomen soft, non-tender, nondistended. No hepato-splenomegaly , or palpable masses. No guarding. Bowel sounds present. GENITOURINARY: Without palpable bladder distension. Jackson catheter in place. No penile/scrotal edema noted. MUSCULOSKELETAL: Extremities without clubbing, cyanosis, or edema. No joint tenderness or effusion noted. No calf tenderness. No mottling or clubbing. LYMPHATICS: No palpable cervical or supraclavicular adenopathy. NEUROLOGICAL: Awake and alert. Motor and sensory grossly within normal limits. Follows commands. Cognitively sharp. Moves all extremities. PSYCHIATRIC: No obvious anxiety/depression. No apparent hallucinations or other psychotic thought process. . Diagnostic Tests Laboratory Laboratory Tests Test 09/22/16 09/22/16 09/22/16 09/23/16 13:20 15:30 17:55 03:34 White Blood Count 5.2 TH/MM3 (4.0-11.0) Red Blood Count 3.12 MIL/MM3 (4.50-5.90) Hemoglobin 10.3 GM/DL (13.0-17.0) Hematocrit 30.1 % (39.0-51.0) Mean Corpuscular Volume 96.4 FL (80.0-100.0) Mean Corpuscular Hemoglobin 32.9 PG (27.0-34.0) Mean Corpuscular Hemoglobin 34.1 % Concent (32.0-36.0) Red Cell Distribution Width 27.8 % (11.6-17.2) Platelet Count 63 TH/MM3 (150-450) Mean Platelet Volume 8.2 FL (7.0-11.0) Neutrophils (%) (Auto) 88.1 % (16.0-70.0) Lymphocytes (%) (Auto) 4.6 % (9.0-44.0) Monocytes (%) (Auto) 5.0 % (0.0-8.0) Eosinophils (%) (Auto) 1.4 % (0.0-4.0) Basophils (%) (Auto) 0.9 % (0.0-2.0) Neutrophils # (Auto) 4.6 TH/MM3 (1.8-7.7) Lymphocytes # (Auto) 0.2 TH/MM3 (1.0-4.8) Monocytes # (Auto) 0.3 TH/MM3 (0-0.9) Eosinophils # (Auto) 0.1 TH/MM3 (0-0.4) Basophils # (Auto) 0.0 TH/MM3 (0-0.2) CBC Comment AUTO DIFF Differential Comment AUTO DIFF CONFIRMED Platelet Estimate LOW (NORMAL) Platelet Morphology Comment NORMAL (NORMAL) Prothrombin Time 12.1 SEC (9.8-11.6) Prothromb Time International 1.1 RATIO Ratio Activated Partial 30.3 SEC Thromboplast Time (24.3-30.1) Sodium Level 130 MEQ/L (136-145) Potassium Level 3.7 MEQ/L (3.5-5.1) Chloride Level 88 MEQ/L (98-107) Carbon Dioxide Level 33.9 MEQ/L (21.0-32.0) Anion Gap 8 MEQ/L (5-15) Blood Urea Nitrogen 19 MG/DL (7-18) Creatinine 1.27 MG/DL (0.60-1.30) Estimat Glomerular Filtration 57 ML/MIN (>89) Rate Random Glucose 87 MG/DL (74-106) Calcium Level 8.3 MG/DL (8.5-10.1) Magnesium Level 1.3 MG/DL 1.5 MG/DL (1.5-2.5) (1.5-2.5) Total Bilirubin 0.9 MG/DL (0.2-1.0) Aspartate Amino Transf 53 U/L (15-37) (AST/SGOT) Alanine Aminotransferase 31 U/L (12-78) (ALT/SGPT) Alkaline Phosphatase 105 U/L (45-117) Ammonia LESS THAN 10 MCMOL/L (11-32) Total Creatine Kinase 307 U/L (39-308) Creatine Kinase MB 6.8 NG/ML (0.5-3.6) Troponin I 0.06 NG/ML (0.02-0.05) Total Protein 6.8 GM/DL (6.4-8.2) Albumin 3.2 GM/DL (3.4-5.0) Lipase 35 U/L (73-393) Free Thyroxine 0.18 NG/DL (0.76-1.46) Thyroid Stimulating Hormone 67.200 uIU/ML 3rd Gen (0.358-3.740) Blood Type AB POSITIVE Antibody Screen NEGATIVE Urine Color YELLOW (YELLW/STRAW) Urine Turbidity CLEAR (CLEAR) Urine pH 6.0 (5.0-8.5) Urine Specific Hudson 1.020 (1.002-1.035) Urine Protein 30 mg/dL (NEG-TRACE) Urine Glucose (UA) NEG mg/dL (NEG) Urine Ketones NEG mg/dL (NEG) Urine Occult Blood NEG (NEG) Urine Nitrite NEG (NEG) Urine Bilirubin NEG (NEG) Urine Urobilinogen LESS THAN 2.0 MG/DL (LESS THAN 2.0) Urine Leukocyte Esterase NEG (NEG) Urine RBC LESS THAN 1 /hpf (0-3) Urine WBC 1 /hpf (0-5) Microscopic Urinalysis Comment CULT NOT INDICATED Nasal Screen MRSA (PCR) NEGATIVE (NEGATIVE) Test 09/23/16 08:20 White Blood Count 5.9 TH/MM3 (4.0-11.0) Red Blood Count 2.87 MIL/MM3 (4.50-5.90) Hemoglobin 9.6 GM/DL (13.0-17.0) Hematocrit 26.9 % (39.0-51.0) Mean Corpuscular Volume 93.7 FL (80.0-100.0) Mean Corpuscular Hemoglobin 33.3 PG (27.0-34.0) Mean Corpuscular Hemoglobin 35.6 % Concent (32.0-36.0) Red Cell Distribution Width 26.2 % (11.6-17.2) Platelet Count 55 TH/MM3 (150-450) Mean Platelet Volume 8.7 FL (7.0-11.0) Neutrophils (%) (Auto) 91.4 % (16.0-70.0) Lymphocytes (%) (Auto) 4.3 % (9.0-44.0) Monocytes (%) (Auto) 4.2 % (0.0-8.0) Eosinophils (%) (Auto) 0.0 % (0.0-4.0) Basophils (%) (Auto) 0.1 % (0.0-2.0) Neutrophils # (Auto) 5.4 TH/MM3 (1.8-7.7) Lymphocytes # (Auto) 0.3 TH/MM3 (1.0-4.8) Monocytes # (Auto) 0.2 TH/MM3 (0-0.9) Eosinophils # (Auto) 0.0 TH/MM3 (0-0.4) Basophils # (Auto) 0.0 TH/MM3 (0-0.2) CBC Comment AUTO DIFF Differential Comment AUTO DIFF CONFIRMED Sodium Level 129 MEQ/L (136-145) Potassium Level 3.6 MEQ/L (3.5-5.1) Chloride Level 89 MEQ/L (98-107) Carbon Dioxide Level 31.1 MEQ/L (21.0-32.0) Anion Gap 9 MEQ/L (5-15) Blood Urea Nitrogen 17 MG/DL (7-18) Creatinine 1.05 MG/DL (0.60-1.30) Estimat Glomerular Filtration 70 ML/MIN (>89) Rate Random Glucose 138 MG/DL (74-106) Calcium Level 8.1 MG/DL (8.5-10.1) Total Bilirubin 0.8 MG/DL (0.2-1.0) Aspartate Amino Transf 42 U/L (15-37) (AST/SGOT) Alanine Aminotransferase 28 U/L (12-78) (ALT/SGPT) Alkaline Phosphatase 101 U/L (45-117) Total Protein 6.6 GM/DL (6.4-8.2) Albumin 2.8 GM/DL (3.4-5.0) . Result Diagram: 09/23/16 0820 09/23/16 0820 Microbiology Microbiology Date/Time Procedure Status Source Growth 09/22/16 13:20 Aerobic Blood Culture Received Blood Peripheral Pending 09/22/16 13:20 Anaerobic Blood Culture Received Blood Peripheral Pending 09/22/16 13:25 Aerobic Blood Culture Received Blood Peripheral Pending 09/22/16 13:25 Anaerobic Blood Culture Received Blood Peripheral Pending . Imaging Last Impressions Head CT 09/22/16 1251 Signed Impressions: Service Date/Time: September 13:37 - CONCLUSION: 1. No evidence of acute intracranial pathology. No masses are identified. Jesse Loya MD Chest X-Ray 09/22/16 1251 Signed Impressions: Service Date/Time: September 13:19 - CONCLUSION: 1. Cardiomegaly. No acute pulmonary disease. Jesse Loya MD Lumbar Spine CT 09/22/16 0000 Signed Impressions: Service Date/Time: September 13:40 - CONCLUSION: Destructive soft tissue mass involving the L1 vertebra as noted. This is characteristic of metastatic disease.. Berhane Pavon MD Chest CT 09/22/16 0000 Signed Impressions: Service Date/Time: September 13:40 - CONCLUSION: 1. Overall , interval worsening in the tumor burden with multiple pulmonary mass lesions either stable to slightly enlarged when compared to the prior. 2. In addition, mediastinal lymph node/mass lesions are also larger and now show areas of calcification possibly related to interval treatment. 3. A 4 cm soft tissue mass lesion in the left of the L1 vertebral body with resultant destruction of the vertebral body and posterior elements was not present previously and is also concerning for metastatic deposit. 4. Slight enlargement of the patient's pericardial effusion. This is still small, however. 5. Small left-sided pleural effusion. Christian Brown MD Abdomen/Pelvis CT 09/22/16 0000 Signed Impressions: Service Date/Time: September 13:40 - CONCLUSION: 1. 4.0 x 2.9 cm soft tissue mass lesion involving the left side of the L1 vertebral body. There is partial destruction of both the vertebral body and adjacent posterior elements. The mass may also compromise the left L1 nerve root. Findings are concerning for a neoplastic process. 2. Small pericardial effusion and small left-sided pleural effusion. Bibasilar atelectatic changes. 3. Dystrophic type calcifications in the enlarged left psoas muscle. Findings are nonspecific but may represent prior trauma with myositis ossificans. An infiltrative process cannot be completely excluded, however. Christian Brown MD . Patient/Family Conference Present at Family Conference: Patient/ . Family Conference Time (mins): 45 Family Conference Location: Bedside Issues Discussed: * Palliative care role, purpose, approach * Additional medical, psychosocial, and spiritual history * Patients general health, functional status, and cognitive changes in the months leading up to the current hospitalization * Patient/family understanding of the current medical problems * Patient/family understanding of prognosis * Patients goals of medical treatment * Current medical treatment options and benefits/burdens of those options * Likely scenarios comparing ongoing aggressive care with a transition to comfort measures only * Questions answered to the best of my ability . . Assessment and Plan Disease Oriented Problem List: (1) Squamous cell carcinoma Comment: Unkown primary. First found in the neck, now metastatic to lungs, mediastinal nodes, L1 , lumbar musculature. Cancer has progressed in spite of multiple therapies. . 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 . (3) Diabetes mellitus, type 2 (4) COPD (chronic obstructive pulmonary disease) Comment: 51 pack year smoker. Uses Spiriva, but not on home 02 or home nebulizer treatments. . . (5) Atrial fibrillation with RVR Comment: Rate controlled on metoprolol. . (6) History of coronary artery disease Comment: Hx of "Silent IA". No recent symptoms. . (7) Hypertension (8) Chronic renal failure, stage 2 (mild) Symptom Scale: (1) Pain 0-10 Scale: 0 Comment: Denies pain today. Pain is usually low back at the site of his known metastatic disease around L1. Normally responds well to 5 mg of oxycodone immediate release. (2) Encephalopathy (3) Generalized weakness Pertinent Non-Medical Issues Psychosocial: Normally lives at home with . His daughter-Ana M Scherer - is a local primary care physician. His son-in-law -- Bill Scherer -- is an ER doctor and physician [employer] administrator at [employer]. Daughter Janelle also lives in the area. Spiritual: Sikh background. Attends christianity rarely. Legal: Health care surrogate designation is scanned into EMR -- (Mildred) and daughter (Ana M) are co-surrogates. Ethical issues impacting care: Patient is currently capacitated to make his own health care decisions. . Important Contacts * Ana M Scherer MD (daughter and co-surrogate) [phone] * Mildred Joiner (spouse) [phone]; [phone] . Code Status: Full Code Plan == Code Status: FULL CODE. Patient will be speaking to family about this but wants full code for now. == Decision making: Patient is currently capacitated to make his own health care decisions. He is appropriately consulting with family. Should he become incapacitated, his (Mildredrajan Joiner) and daughter (Ana M Scherer MD) are equal co-surrogates. == Goals of medical treatment: Patient is quite clear that he wants ongoing aggressive cancer-directed treatments for now. He feels his current quality of life is worth fighting for even if he risks complications of the treatments. His pain level is manageable. He is open to discussing resuscitation goals with family after we discussed how resuscitations in those with advanced cancer rarely return a patient to a life of meaning and purpose even if the life is saved. Dr. Urrutia also feels that it is well worth treating the myxedema, completing the current planned treatment, and seeing if there is response to the new immunotherapy and directed radiation treatments. If there is progression in spite of those treatments, that might be the best time to re- consider goals. supports this plan. Complicating the patient's goals are financial concerns. He let me know that as long as he remains alive he continues to bring income into the household. Have asked family to bring in a copy of the living will for us to scan into the EMR. == Pain: Pain has mostly been attributed to his lumbar metastatic disease. It is worse with movement. Per patient and , it is well managed on his current oxycodone dosing. No further recommendations at this time. == Generalized weakness/lethargy: A good part of this is probably due to the hypothyroidism (in turn due to chemotherapy and radiation) . Once the hypothyroidism is adequately treated, we will know how much of the fatigue weakness is due to the cancer. == Altered mental status : Also probably due to the hypothyroidism. No further recommendation at this time. == Palliative care will continue to follow to assist with symptom management and to further evaluate goals of medical treatment as the clinical course evolves. . Time Spent Total Floor Time (mins): 90 (Total floor time included chart review, patient exam, and above referenced bedside conference with patient and . ) Face to Face Time (mins): 60 >50% Counseling/Coord of Care: Yes Thank you for the opportunity to participate in the care of Mr. Estrada . Attestation To help prompt me to consider important information that might be impacting today's encounter and assessment, information from prior notes written by myself or my colleagues may have been "brought forward" into today's note. My signature on this note, however, is an attestation that I personally performed the exam, history, and/or decision-making noted today, and, unless otherwise indicated, the interactions with patient, family, and staff as well as the review of records all occurred today. I also attest that the listed assessment and stated plan reflect my best clinical judgment today based on the combination of historical information, prior notes, and today's exam/ interactions. When time spent is documented, it refers only to time spent today by the signer, or if indicated, combined time spent today by collaborating physician/nurse practitioner. . Leonel Phelan MD Sep 23, 2016 10:36
--- NOTE | 2016-09-23 12:37 | HHI.PR ---
Subjective Remarks Follow-up myxedema coma/encephalopathy 09/23/16-patient seen and examined early this morning, appeared much more alert and oriented denies any back pain today. Objective Vitals Vital Signs Date Time Temp Pulse Resp B/P Pulse Ox O2 Delivery O2 Flow Rate FiO2 09/23/16 10:00 78 09/23/16 10:00 18 09/23/16 08:00 97.6 79 16 151/82 95 09/23/16 08:00 85 09/23/16 07:43 100 Nasal Cannula 2.00 09/23/16 06:00 78 09/23/16 04:00 85 09/23/16 04:00 97.7 85 12 123/66 94 09/23/16 02:00 83 09/23/16 00:00 98.1 86 10 132/71 93 09/23/16 00:00 86 09/22/16 22:00 100 09/22/16 20:00 103 09/22/16 20:00 97.6 103 11 142/81 96 09/22/16 19:10 99 Nasal Cannula 2.00 09/22/16 18:00 104 09/22/16 17:00 90 17 143/85 100 Room Air 09/22/16 16:00 90 15 130/80 100 Room Air 09/22/16 15:00 104 15 145/80 97 Room Air 09/22/16 14:01 97.1 09/22/16 13:08 99 Nasal Cannula 2 09/22/16 13:08 92 16 09/22/16 13:07 94 Room Air 09/22/16 12:51 91 16 132/69 97 I/O 09/22/16 09/22/16 09/22/16 09/23/16 09/23/16 09/23/16 07:00 15:00 23:00 07:00 15:00 23:00 Intake Total 60 ml 60 ml Output Total 800 ml 265 ml Balance -740 ml -205 ml Intake Oral 60 ml 60 ml Output Urine Total 800 ml 265 ml # Voids 0 Result Diagram: 09/23/16 0820 09/23/16 0820 Imaging Last Impressions Head CT 09/22/16 1251 Signed Impressions: Service Date/Time: September 13:37 - CONCLUSION: 1. No evidence of acute intracranial pathology. No masses are identified. Jesse Loya MD Chest X-Ray 09/22/16 1251 Signed Impressions: Service Date/Time: September 13:19 - CONCLUSION: 1. Cardiomegaly. No acute pulmonary disease. Jesse Loya MD Lumbar Spine CT 09/22/16 0000 Signed Impressions: Service Date/Time: September 13:40 - CONCLUSION: Destructive soft tissue mass involving the L1 vertebra as noted. This is characteristic of metastatic disease.. Berhane Pavon MD Chest CT 09/22/16 0000 Signed Impressions: Service Date/Time: September 13:40 - CONCLUSION: 1. Overall , interval worsening in the tumor burden with multiple pulmonary mass lesions either stable to slightly enlarged when compared to the prior. 2. In addition, mediastinal lymph node/mass lesions are also larger and now show areas of calcification possibly related to interval treatment. 3. A 4 cm soft tissue mass lesion in the left of the L1 vertebral body with resultant destruction of the vertebral body and posterior elements was not present previously and is also concerning for metastatic deposit. 4. Slight enlargement of the patient's pericardial effusion. This is still small, however. 5. Small left-sided pleural effusion. Christian Brown MD Abdomen/Pelvis CT 09/22/16 0000 Signed Impressions: Service Date/Time: September 13:40 - CONCLUSION: 1. 4.0 x 2.9 cm soft tissue mass lesion involving the left side of the L1 vertebral body. There is partial destruction of both the vertebral body and adjacent posterior elements. The mass may also compromise the left L1 nerve root. Findings are concerning for a neoplastic process. 2. Small pericardial effusion and small left-sided pleural effusion. Bibasilar atelectatic changes. 3. Dystrophic type calcifications in the enlarged left psoas muscle. Findings are nonspecific but may represent prior trauma with myositis ossificans. An infiltrative process cannot be completely excluded, however. Christian Brown MD Objective Remarks GENERAL: NAD with some somnolence however alert SKIN: Warm and dry. HEAD: Normocephalic. EYES: No scleral icterus. No injection or drainage. NECK: Supple, trachea midline. No JVD or lymphadenopathy. CARDIOVASCULAR: Regular rate and rhythm without murmurs, gallops, or rubs. RESPIRATORY: Breath sounds equal bilaterally. No accessory muscle use. GASTROINTESTINAL: Abdomen soft, non-tender, nondistended. MUSCULOSKELETAL: No cyanosis, or edema. BACK: Nontender without obvious deformity. No CVA tenderness. 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 telemetry monitoring . Continue current treatment in ICU Hyponatremia: Continue to avoid IV fluid hydration secondary to myxedema as patient on thyroid replacement therapy Toxic metabolic encephalopathy: Resolving; CT Head Negative; Nh3 wnl. 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 Urrutia. Palliative care medicine consultation pending Chronic back pain: CT abdomen/pelvic with finding of 1. 4.0 x 2.9 cm soft tissue mass lesion involving the left side of the L1 vertebral body in a patient with a known history of metastasis SCC; lumbar spine CT noted with finding of metastasis to L1 vertebral body .Patient with history of radiation and chemotherapy, May consider neurosurgery consultation if bladder and bowel dysfunction. Pain management accordingly. PT to treat and eval Diabetes type 2: Hold oral hypoglycemic agent, on insulin sliding scale with fingerstick blood glucose monitoring Hypertension: Continue Lopressor Anxiety: Resume Effexor DVT prophylaxis: Hold anticoagulation; bilateral SCDs Eze De Luna MD Sep 23, 2016 12:37
[2016-09-23] MEDS ORDERED: RESP: ALBUTEROL 2.5 MG/IPRATROPIUM 0.5 MG NEB (PRN) NEB (12:45)
--- NOTE | 2016-09-23 13:17 | PD.ONC.PN ---
Subjective Subjective Remarks Afebrile overnight. Patient resting comfortably. He is lethargic. Denies pain. Per nurse, he has been agitated this AM. Objective Data Date Time Temp Pulse Resp B/P Pulse Ox O2 Delivery O2 Flow Rate FiO2 09/23/16 10:00 78 09/23/16 10:00 18 09/23/16 08:00 97.6 79 16 151/82 95 09/23/16 08:00 85 09/23/16 07:43 100 Nasal Cannula 2.00 09/23/16 06:00 78 09/23/16 04:00 85 09/23/16 04:00 97.7 85 12 123/66 94 09/23/16 02:00 83 09/23/16 00:00 98.1 86 10 132/71 93 09/23/16 00:00 86 09/22/16 22:00 100 09/22/16 20:00 103 09/22/16 20:00 97.6 103 11 142/81 96 09/22/16 19:10 99 Nasal Cannula 2.00 09/22/16 18:00 104 09/22/16 17:00 90 17 143/85 100 Room Air 09/22/16 16:00 90 15 130/80 100 Room Air 09/22/16 15:00 104 15 145/80 97 Room Air 09/22/16 14:01 97.1 Result Diagram: 09/23/16 0820 09/23/16 0820 Laboratory Results Laboratory Tests Test 09/22/16 09/22/16 09/22/16 09/23/16 13:20 15:30 17:55 03:34 White Blood Count 5.2 TH/MM3 Red Blood Count 3.12 MIL/MM3 Hemoglobin 10.3 GM/DL Hematocrit 30.1 % Mean Corpuscular Volume 96.4 FL Mean Corpuscular Hemoglobin 32.9 PG Mean Corpuscular Hemoglobin 34.1 % Concent Red Cell Distribution Width 27.8 % Platelet Count 63 TH/MM3 Mean Platelet Volume 8.2 FL Neutrophils (%) (Auto) 88.1 % Lymphocytes (%) (Auto) 4.6 % Monocytes (%) (Auto) 5.0 % Eosinophils (%) (Auto) 1.4 % Basophils (%) (Auto) 0.9 % Neutrophils # (Auto) 4.6 TH/MM3 Lymphocytes # (Auto) 0.2 TH/MM3 Monocytes # (Auto) 0.3 TH/MM3 Eosinophils # (Auto) 0.1 TH/MM3 Basophils # (Auto) 0.0 TH/MM3 CBC Comment AUTO DIFF Differential Comment AUTO DIFF CONFIRMED Platelet Estimate LOW Platelet Morphology Comment NORMAL Prothrombin Time 12.1 SEC Prothromb Time International 1.1 RATIO Ratio Activated Partial 30.3 SEC Thromboplast Time Sodium Level 130 MEQ/L Potassium Level 3.7 MEQ/L Chloride Level 88 MEQ/L Carbon Dioxide Level 33.9 MEQ/L Anion Gap 8 MEQ/L Blood Urea Nitrogen 19 MG/DL Creatinine 1.27 MG/DL Estimat Glomerular Filtration 57 ML/MIN Rate Random Glucose 87 MG/DL Calcium Level 8.3 MG/DL Magnesium Level 1.3 MG/DL 1.5 MG/DL Total Bilirubin 0.9 MG/DL Aspartate Amino Transf 53 U/L (AST/SGOT) Alanine Aminotransferase 31 U/L (ALT/SGPT) Alkaline Phosphatase 105 U/L Ammonia LESS THAN 10 MCMOL/L Total Creatine Kinase 307 U/L Creatine Kinase MB 6.8 NG/ML Troponin I 0.06 NG/ML Total Protein 6.8 GM/DL Albumin 3.2 GM/DL Lipase 35 U/L Free Thyroxine 0.18 NG/DL Thyroid Stimulating Hormone 67.200 uIU/ML 3rd Gen Blood Type AB POSITIVE Antibody Screen NEGATIVE Urine Color YELLOW Urine Turbidity CLEAR Urine pH 6.0 Urine Specific [place] 1.020 Urine Protein 30 mg/dL Urine Glucose (UA) NEG mg/dL Urine Ketones NEG mg/dL Urine Occult Blood NEG Urine Nitrite NEG Urine Bilirubin NEG Urine Urobilinogen LESS THAN 2.0 MG/DL Urine Leukocyte Esterase NEG Urine RBC LESS THAN 1 /hpf Urine WBC 1 /hpf Microscopic Urinalysis Comment CULT NOT INDICATED Nasal Screen MRSA (PCR) NEGATIVE Test 09/23/16 08:20 White Blood Count 5.9 TH/MM3 Red Blood Count 2.87 MIL/MM3 Hemoglobin 9.6 GM/DL Hematocrit 26.9 % Mean Corpuscular Volume 93.7 FL Mean Corpuscular Hemoglobin 33.3 PG Mean Corpuscular Hemoglobin 35.6 % Concent Red Cell Distribution Width 26.2 % Platelet Count 55 TH/MM3 Mean Platelet Volume 8.7 FL Neutrophils (%) (Auto) 91.4 % Lymphocytes (%) (Auto) 4.3 % Monocytes (%) (Auto) 4.2 % Eosinophils (%) (Auto) 0.0 % Basophils (%) (Auto) 0.1 % Neutrophils # (Auto) 5.4 TH/MM3 Lymphocytes # (Auto) 0.3 TH/MM3 Monocytes # (Auto) 0.2 TH/MM3 Eosinophils # (Auto) 0.0 TH/MM3 Basophils # (Auto) 0.0 TH/MM3 CBC Comment AUTO DIFF Differential Comment AUTO DIFF CONFIRMED Sodium Level 129 MEQ/L Potassium Level 3.6 MEQ/L Chloride Level 89 MEQ/L Carbon Dioxide Level 31.1 MEQ/L Anion Gap 9 MEQ/L Blood Urea Nitrogen 17 MG/DL Creatinine 1.05 MG/DL Estimat Glomerular Filtration 70 ML/MIN Rate Random Glucose 138 MG/DL Calcium Level 8.1 MG/DL Total Bilirubin 0.8 MG/DL Aspartate Amino Transf 42 U/L (AST/SGOT) Alanine Aminotransferase 28 U/L (ALT/SGPT) Alkaline Phosphatase 101 U/L Total Protein 6.6 GM/DL Albumin 2.8 GM/DL Culture Results Microbiology Date/Time Procedure Status Source Growth 09/22/16 13:20 Aerobic Blood Culture - Preliminary Resulted Blood Peripheral NO GROWTH IN 1 DAY 09/22/16 13:20 Anaerobic Blood Culture - Preliminary Resulted Blood Peripheral NO GROWTH IN 1 DAY 09/22/16 13:25 Aerobic Blood Culture - Preliminary Resulted Blood Peripheral NO GROWTH IN 1 DAY 09/22/16 13:25 Anaerobic Blood Culture - Preliminary Resulted Blood Peripheral NO GROWTH IN 1 DAY Administered Medications Medications (Trade) Dose Ordered Sig/Jacqueline Route PRN Reason Start Time Stop Time Status Last Admin Dose Admin IV Flush (NS Flush) 2 ml BID FLUSH 09/22/16 21:00 09/23/16 09:00 Docusate Sodium (Colace) 100 mg Q12H PO 09/22/16 15:00 09/23/16 04:28 Oxycodone HCl (Roxicodone) 10 mg Q4H PRN PO PAIN SCALE 6 TO 10 09/22/16 14:30 09/23/16 09:07 Hydromorphone HCl (Dilaudid Pf Inj) 1 mg Q3H PRN IV BREAKTHROUGH PAIN 09/22/16 14:30 09/22/16 18:09 Levothyroxine Sodium (Synthroid Inj) 50 mcg DAILY@06 IV PUSH 09/23/16 06:00 09/23/16 04:32 Liothyronine Sodium (Cytomel) 5 mcg Q12H PO 09/23/16 02:00 09/23/16 04:28 Hydrocortisone Sodium Succinate (SoluCORTEF INJ) 100 mg Q8HR IV PUSH 09/22/16 22:00 09/23/16 04:31 Escitalopram Oxalate (Lexapro) 10 mg DAILY PO 09/23/16 09:00 09/23/16 09:07 Loratadine (Claritin) 10 mg DAILY PO 09/23/16 09:00 09/23/16 09:07 Metoprolol Succinate (Toprol Xl) 25 mg BID PO 09/22/16 21:00 09/23/16 09:07 Tiotropium [place] (Spiriva Inh) 18 mcg DAILY INH 09/23/16 09:00 09/23/16 09:00 Chlorhexidine Gluconate (Chlorhexidine 2% Cloth) 3 pack DAILY@04 TOP 09/23/16 04:00 09/27/16 04:01 09/23/16 04:00 Objective Remarks GENERAL: Middle aged male with cushingoid appearance. SKIN: Warm and dry. HEAD: Normocephalic. EYES: No scleral icterus. No injection or drainage. NECK: Supple, trachea midline. + mass upon neck. LYMPHATIC: No adenopathy. CARDIOVASCULAR: Regular rate and rhythm RESPIRATORY: Breath sounds equal bilaterally. No accessory muscle use. GASTROINTESTINAL: Abdomen soft, non-tender, nondistended. EXTREMITIES: No cyanosis NEUROLOGICAL: awake. lethargic. Assessment/Plan Problem List: (1) Myxedema coma Status: Acute Plan: --per primary --on Synthroid, solu-cortef, Liothyronine, (2) History of squamous cell carcinoma Status: Chronic Plan: --plan for further treatment outpatient as patient's goals remain aggressive. History: --progressed after initial completion of definitive concurrent chemotherapy and radiation. --progressed on pembrolizumab-->then placed on palliative combination chemotherapy and progressed after two cycles. --presented with back pain and was found to have an L1 and L3 lesion. --was referred to Dr. Valdes for palliative radiation. He was placed on Decadron for adjunctive therapy for pain and swelling. did not have any neurologic deficit from the soft tissue lesions in L1 and L3. His systemic chemo regimen was changed to cetuximab. 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 Cintron's esophagus. Cataract. Diabetes type 2. Gastroesophageal reflux. Atrial fibrillation. 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 cOPD. h/o severe hypothyroidism, untreated, probably from the pembrolizumab versus radiation of his neck. Plan 1. continue supportive treatment 2. plan for follow up in clinic for resumption of treatment once current acute issues resolved. Attending Statement The exam, history, and the medical decision-making described in the above note were completed with the assistance of the mid-level provider. I reviewed and agree with the findings presented. I attest that I had a [id number] encounter with the patient on the same day, and personally performed and documented my assessment and findings in the medical record. Pt seen and examined, doing better today, more alert. Still tired appearing. Express his wishes to continue therapy. Discuss PT evaluation and consultation if he would benefit from [facility] re[facility] given long period of deconditioning, need to improve balance and avoid falls. Continue current support. Nadya Larios Sep 23, 2016 13:17 Cayla Urrutia MD Sep 23, 2016 20:20
--- NOTE | 2016-09-23 23:01 | EKG ---
Date Performed: 09/22/2016 Time Performed: 12:22:21 PTAGE: 66 years EKG: ATRIAL FIBRILLATION WITH ABERRANT CONDUCTION OR VENTRICULAR PREMATURE COMPLEXES MODERATE IN TRAVENTRICULAR CONDUCTION DELAY NONSPECIFIC ST & T-WAVE ABNORMALITY ABNORMAL ECG PREVIOUS TRACING : 08/13/2016 13.43 DOCTOR: Graciela Garcia Interpretating Date/Time 09/23/2016 22:52:32
[2016-09-24] VITALS (13 sets, daily range): BP systolic 95–119; BP diastolic 55–99; PULSE 72–106; RESP 16–24; TEMP 97.3–98.2; O2SAT 92–98
[2016-09-24] MEDS: LIOTHYRONINE SODIUM 5 MCG TAB PO SCH (02:00)
[2016-09-24] MEDS: DOCUSATE SODIUM 100 MG CAP PO SCH ×2 (03:00→15:00)
[2016-09-24] MEDS: CHLORHEXIDINE GLUCONATE 2 % 1 PACK (2 CLOTHS)(taper/protocol) TOP SCH (04:00)
[2016-09-24] MEDS: HYDROCORTISONE SOD SUCCINATE 100 MG VIAL IV PUSH SCH (05:10)
[2016-09-24] MEDS: LEVOTHYROXINE SODIUM 100 MCG VIAL IV PUSH SCH (05:13)
[2016-09-24] MEDS: ESCITALOPRAM OXALATE 10 MG TAB PO SCH (07:36)
[2016-09-24 08:33] LABS: BICARBONATE 33.1 MEQ/L (21.0-32.0); POTASSIUM 3.3 MEQ/L (3.5-5.1)
[2016-09-24] MEDS: SODIUM CHLORIDE 0.9% FLUSH 5 ML FLUSH FLUSH SCH ×2 (09:00→21:00)
[2016-09-24] MEDS: NYSTAT/DIPHENHY/LIDO MOUTHWASH (Adult) 120ML SWISH-SWAL SCH ×4 (09:00→21:00)
[2016-09-24] MEDS: TIOTROPIUM BROMIDE 18 MCG INH INH SCH (09:00)
[2016-09-24] MEDS: LORATADINE 10 MG TAB PO SCH (09:04)
[2016-09-24] MEDS: METOPROLOL SUCCINATE 25 MG EXTENDED RELEASE TAB PO SCH ×2 (09:05→21:00)
--- NOTE | 2016-09-24 09:20 | PD.ONC.PN ---
Subjective Subjective Remarks no new issues resting comfortably Objective Data Date Time Temp Pulse Resp B/P Pulse Ox O2 Delivery O2 Flow Rate FiO2 09/24/16 08:10 96 Nasal Cannula 2.00 09/24/16 06:00 78 09/24/16 04:00 78 09/24/16 04:00 97.4 78 18 119/99 96 09/24/16 02:00 72 09/24/16 00:00 97.5 106 24 119/68 92 09/24/16 00:00 106 09/23/16 22:00 91 09/23/16 21:00 98 Nasal Cannula 2.00 09/23/16 20:00 87 09/23/16 20:00 98.4 87 10 136/70 100 09/23/16 18:00 78 09/23/16 16:11 20 09/23/16 16:00 97.5 86 20 114/68 09/23/16 16:00 85 09/23/16 10:00 78 09/24/16 09/24/16 09/24/16 07:00 15:00 23:00 Intake Total 60 ml Output Total 410 ml Balance -350 ml Result Diagram: 09/23/16 0820 09/24/16 0727 Laboratory Results Laboratory Tests Test 09/24/16 07:27 Sodium Level 131 MEQ/L Potassium Level 3.3 MEQ/L Chloride Level 91 MEQ/L Carbon Dioxide Level 33.1 MEQ/L Anion Gap 7 MEQ/L Blood Urea Nitrogen 15 MG/DL Creatinine 1.01 MG/DL Estimat Glomerular Filtration 74 ML/MIN Rate Random Glucose 158 MG/DL Calcium Level 8.2 MG/DL Free Thyroxine 0.86 NG/DL Random Cortisol 35.6 MCG/DL Culture Results Microbiology Date/Time Procedure Status Source Growth 09/22/16 13:20 Aerobic Blood Culture - Preliminary Resulted Blood Peripheral NO GROWTH IN 1 DAY 09/22/16 13:20 Anaerobic Blood Culture - Preliminary Resulted Blood Peripheral NO GROWTH IN 1 DAY 09/22/16 13:25 Aerobic Blood Culture - Preliminary Resulted Blood Peripheral NO GROWTH IN 1 DAY 09/22/16 13:25 Anaerobic Blood Culture - Preliminary Resulted Blood Peripheral NO GROWTH IN 1 DAY Administered Medications Medications (Trade) Dose Ordered Sig/Jacqueline Route PRN Reason Start Time Stop Time Status Last Admin Dose Admin IV Flush (NS Flush) 2 ml BID FLUSH 09/22/16 21:00 09/23/16 20:57 Docusate Sodium (Colace) 100 mg Q12H PO 09/22/16 15:00 09/23/16 15:05 Oxycodone HCl (Roxicodone) 10 mg Q4H PRN PO PAIN SCALE 6 TO 10 09/22/16 14:30 09/24/16 07:36 Hydromorphone HCl (Dilaudid Pf Inj) 1 mg Q3H PRN IV BREAKTHROUGH PAIN 09/22/16 14:30 09/22/16 18:09 Levothyroxine Sodium (Synthroid Inj) 50 mcg DAILY@06 IV PUSH 09/23/16 06:00 09/24/16 05:13 Liothyronine Sodium (Cytomel) 5 mcg Q12H PO 09/23/16 02:00 09/23/16 15:05 Hydrocortisone Sodium Succinate (SoluCORTEF INJ) 100 mg Q8HR IV PUSH 09/22/16 22:00 09/23/16 20:58 Escitalopram Oxalate (Lexapro) 10 mg DAILY PO 09/23/16 09:00 09/24/16 07:36 Loratadine (Claritin) 10 mg DAILY PO 09/23/16 09:00 09/24/16 09:04 Metoprolol Succinate (Toprol Xl) 25 mg BID PO 09/22/16 21:00 09/24/16 09:05 Tiotropium [place] (Spiriva Inh) 18 mcg DAILY INH 09/23/16 09:00 09/23/16 09:00 Chlorhexidine Gluconate (Chlorhexidine 2% Cloth) 3 pack DAILY@04 TOP 09/23/16 04:00 09/27/16 04:01 09/23/16 04:00 Multi-Ingredient Mouthwash/Gargle (Magic Mouthwash Adult Liq) 10 ml QID SWISH-SWAL 09/23/16 10:00 09/24/16 09:00 Objective Remarks GENERAL: Well-nourished, well-developed patient. SKIN: Warm and dry. HEAD: Normocephalic. EYES: No scleral icterus. No injection or drainage. NECK: Supple, trachea midline. No JVD or lymphadenopathy. LYMPHATIC: No adenopathy. CARDIOVASCULAR: Regular rate and rhythm without murmurs. RESPIRATORY: Breath sounds equal bilaterally. No accessory muscle use. GASTROINTESTINAL: Abdomen soft, non-tender, nondistended. EXTREMITIES: No cyanosis, or edema. MUSCULOSKELETAL: Adequate muscle tone. NEUROLOGICAL: No obvious focal deficit. Awake, alert, and oriented x3. PSYCHIATRIC: Appropriate mood and affect; insight and judgment normal. Assessment/Plan Problem List: (1) Myxedema coma Status: Resolved Plan: --per primary --on Synthroid, solu-cortef, Liothyronine, (2) History of squamous cell carcinoma Status: Chronic Plan: --plan for further treatment outpatient as patient's goals remain aggressive. History: --progressed after initial completion of definitive concurrent chemotherapy and radiation. --progressed on pembrolizumab-->then placed on palliative combination chemotherapy and progressed after two cycles. --presented with back pain and was found to have an L1 and L3 lesion. --was referred to Dr. Valdes for palliative radiation. He was placed on Decadron for adjunctive therapy for pain and swelling. did not have any neurologic deficit from the soft tissue lesions in L1 and L3. His systemic chemo regimen was changed to cetuximab. 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 Cintron's esophagus. Cataract. Diabetes type 2. Gastroesophageal reflux. Atrial fibrillation. 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 cOPD. h/o severe hypothyroidism, untreated, probably from the pembrolizumab versus radiation of his neck. Plan 1. continue supportive treatment 2. plan for follow up in clinic for resumption of treatment once current acute issues resolved. Dominick Bajwa MD Sep 24, 2016 09:20
[2016-09-24] MEDS: INSULIN ASPART SUPPLEMENTAL SCALE SQ SCH ×4 (11:00→21:00)
[2016-09-24] MEDS ORDERED: POTASSIUM CL 40 MEQ/30 ML LIQ UDC PO ONE (12:00)
--- NOTE | 2016-09-24 12:03 | HHI.PR ---
Subjective Remarks Follow-up myxedema coma/encephalopathy 09/23/16-patient seen and examined early this morning, appeared much more alert and oriented denies any back pain today. 09/24/16-patient seen and examined, alert and oriented 3. Free T4 0.86 and cortisol level 35.6. Currently afebrile Objective Vitals Vital Signs Date Time Temp Pulse Resp B/P Pulse Ox O2 Delivery O2 Flow Rate FiO2 09/24/16 10:00 82 09/24/16 08:10 96 Nasal Cannula 2.00 09/24/16 08:00 98.0 81 20 118/57 96 09/24/16 08:00 82 09/24/16 06:00 78 09/24/16 04:00 78 09/24/16 04:00 97.4 78 18 119/99 96 09/24/16 02:00 72 09/24/16 00:00 97.5 106 24 119/68 92 09/24/16 00:00 106 09/23/16 22:00 91 09/23/16 21:00 98 Nasal Cannula 2.00 09/23/16 20:00 87 09/23/16 20:00 98.4 87 10 136/70 100 09/23/16 18:00 78 09/23/16 16:11 20 09/23/16 16:00 97.5 86 20 114/68 09/23/16 16:00 85 I/O 09/23/16 09/23/16 09/23/16 09/24/16 09/24/16 09/24/16 07:00 15:00 23:00 07:00 15:00 23:00 Intake Total 60 ml 60 ml 60 ml Output Total 265 ml 520 ml 410 ml Balance -205 ml -460 ml -350 ml Intake Oral 60 ml 60 ml 60 ml Output Urine Total 265 ml 520 ml 410 ml Result Diagram: 09/23/16 0820 09/24/16 0727 Imaging Last Impressions Head CT 09/22/16 1251 Signed Impressions: Service Date/Time: September 13:37 - CONCLUSION: 1. No evidence of acute intracranial pathology. No masses are identified. Jesse Loya MD Chest X-Ray 09/22/16 1251 Signed Impressions: Service Date/Time: September 13:19 - CONCLUSION: 1. Cardiomegaly. No acute pulmonary disease. Jesse Loya MD Lumbar Spine CT 09/22/16 0000 Signed Impressions: Service Date/Time: September 13:40 - CONCLUSION: Destructive soft tissue mass involving the L1 vertebra as noted. This is characteristic of metastatic disease.. Berhane Pavon MD Chest CT 09/22/16 0000 Signed Impressions: Service Date/Time: September 13:40 - CONCLUSION: 1. Overall , interval worsening in the tumor burden with multiple pulmonary mass lesions either stable to slightly enlarged when compared to the prior. 2. In addition, mediastinal lymph node/mass lesions are also larger and now show areas of calcification possibly related to interval treatment. 3. A 4 cm soft tissue mass lesion in the left of the L1 vertebral body with resultant destruction of the vertebral body and posterior elements was not present previously and is also concerning for metastatic deposit. 4. Slight enlargement of the patient's pericardial effusion. This is still small, however. 5. Small left-sided pleural effusion. Christian Brown MD Abdomen/Pelvis CT 09/22/16 0000 Signed Impressions: Service Date/Time: September 13:40 - CONCLUSION: 1. 4.0 x 2.9 cm soft tissue mass lesion involving the left side of the L1 vertebral body. There is partial destruction of both the vertebral body and adjacent posterior elements. The mass may also compromise the left L1 nerve root. Findings are concerning for a neoplastic process. 2. Small pericardial effusion and small left-sided pleural effusion. Bibasilar atelectatic changes. 3. Dystrophic type calcifications in the enlarged left psoas muscle. Findings are nonspecific but may represent prior trauma with myositis ossificans. An infiltrative process cannot be completely excluded, however. Christian Brown MD Objective Remarks GENERAL: NAD and sitting in a chair SKIN: Warm and dry. HEAD: Normocephalic. EYES: No scleral icterus. No injection or drainage. NECK: Supple, trachea midline. No JVD or lymphadenopathy. CARDIOVASCULAR: Regular rate and rhythm without murmurs, gallops, or rubs. RESPIRATORY: Breath sounds equal bilaterally. No accessory muscle use. GASTROINTESTINAL: Abdomen soft, non-tender, nondistended. MUSCULOSKELETAL: No cyanosis, or edema. BACK: Nontender without obvious deformity. No CVA tenderness. 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 (2) Toxic metabolic encephalopathy ICD Code: G92 Status: Resolved (3) History of squamous cell carcinoma ICD Code: Z85.89 Status: Chronic (4) Type 2 diabetes mellitus ICD Code: E11.9 Status: Chronic (5) Hypothyroidism ICD Code: E03.9 Status: Chronic Assessment and Plan 66-year-old male with Myxedema Coma: Now resolved TSH of 67.200 and Free T4 of 0.18; s/p levothyroxine 600mcg x1 and Solu-Cortef 100mg x 1in ED; s/p Liothyronine 25mcg X 1 in ED as well as; condition is resolved as free T4 0.86 and patient alert and oriented 3 therefore will discontinue Liothyronine 5mcg Q12H as well as Synthroid 5omcg daily and Solu-Cortef 100mg Q8H. telemetry monitoring . Will transfer patient out of ICU Hypothyroidism: Start Synthroid 100 g daily 09/25/16 Hyponatremia: Continue to monitor Toxic metabolic encephalopathy: Resolved; CT Head Negative; Nh3 wnl. 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 Urrutia. Palliative care medicine consultation pending Chronic back pain: CT abdomen/pelvic with finding of 1. 4.0 x 2.9 cm soft tissue mass lesion involving the left side of the L1 vertebral body in a patient with a known history of metastasis SCC; lumbar spine CT noted with finding of metastasis to L1 vertebral body .Patient with history of radiation and chemotherapy. Pain management accordingly. PT to treat and eval. she will need rehabilitation likely to [place] Diabetes type 2: Continue to Hold oral hypoglycemic agent, on insulin sliding scale with fingerstick blood glucose monitoring Hypertension: Continue Lopressor Anxiety: on Effexor DVT prophylaxis: Hold anticoagulation; bilateral SCDs Transfer to Eze Centeno MD Sep 24, 2016 12:02
[2016-09-25] VITALS: BP 106/63; PULSE 70; RESP 16; TEMP 97.8; O2SAT 97
[2016-09-25] MEDS: DOCUSATE SODIUM 100 MG CAP PO SCH ×2 (03:00→17:20)
[2016-09-25 04:00] VITALS: BP 147/67; PULSE 70; RESP 17; TEMP 97.3; O2SAT 98
[2016-09-25] MEDS: CHLORHEXIDINE GLUCONATE 2 % 1 PACK (2 CLOTHS)(taper/protocol) TOP SCH (04:00)
[2016-09-25] MEDS: INSULIN ASPART SUPPLEMENTAL SCALE SQ SCH ×4 (05:07→21:00)
[2016-09-25] MEDS: LEVOTHYROXINE SODIUM 100 MCG TAB PO SCH (05:07)
[2016-09-25] MEDS ORDERED: SODIUM CHLORID 0.9% 500 ML INJ 500 ML IV ONE (05:30)
[2016-09-25] MEDS ORDERED: SODIUM CHLOR 0.9% 1000 ML INJ 1,000 ML IV SCH (05:30)
[2016-09-25 08:00] VITALS: BP 114/63; PULSE 69; RESP 18; TEMP 98.4; O2SAT 97
[2016-09-25 08:26] LABS: AUTOMATED NEUTROPHIL # 3.4 TH/MM3 (1.8-7.7); BASOPHIL % 0.4 % (0.0-2.0); EOSINOPHIL # 0.1 TH/MM3 (0-0.4); EOSINOPHIL % 1.7 % (0.0-4.0); HEMATOCRIT 25.4 % (39.0-51.0); LYMPH % 7.2 % (9.0-44.0); LYMPHOCYTE # 0.3 TH/MM3 (1.0-4.8); MEAN CORPUSCULAR HEMOGLOBIN 33.3 PG (27.0-34.0); MEAN CORPUSCULAR HGB CONC 34.6 % (32.0-36.0); MONO % 5.1 % (0.0-8.0); NEUT % 85.6 % (16.0-70.0); PLATELET COUNT 59 TH/MM3 (150-450); RED BLOOD COUNT 2.65 MIL/MM3 (4.50-5.90); RED CELL DISTRIBUTION WIDTH 27.4 % (11.6-17.2)
[2016-09-25 08:34] LABS: HEMO FLAGS AUTO DIFF
[2016-09-25 08:47] LABS: BICARBONATE 32.9 MEQ/L (21.0-32.0); POTASSIUM 3.1 MEQ/L (3.5-5.1)
[2016-09-25] MEDS: SODIUM CHLORIDE 0.9% FLUSH 5 ML FLUSH FLUSH SCH ×2 (09:00→21:00)
[2016-09-25] MEDS: TIOTROPIUM BROMIDE 18 MCG INH INH SCH (09:00)
--- NOTE | 2016-09-25 09:05 | HHI.PR ---
Subjective Remarks Follow-up myxedema coma/encephalopathy 09/23/16-patient seen and examined early this morning, appeared much more alert and oriented denies any back pain today. 09/24/16-patient seen and examined, alert and oriented 3. Free T4 0.86 and cortisol level 35.6. Currently afebrile 09/25/16-patient seen and examined. Appears sleepy today. Urinary retention after Nicole were discontinued yesterday, patient was given bolus 500 cc NS . Afebrile Objective Vitals Vital Signs Date Time Temp Pulse Resp B/P Pulse Ox O2 Delivery O2 Flow Rate FiO2 09/25/16 04:00 97.3 70 17 147/67 98 09/25/16 00:00 97.8 70 16 106/63 97 09/24/16 23:17 20 09/24/16 21:00 20 09/24/16 20:00 77 17 98/55 98 09/24/16 18:59 97.3 88 18 95/59 95 09/24/16 18:00 82 09/24/16 16:00 82 09/24/16 16:00 98.0 84 16 113/62 98 09/24/16 14:00 82 09/24/16 12:00 82 09/24/16 12:00 98.2 75 22 116/62 98 09/24/16 10:00 82 I/O 09/24/16 09/24/16 09/24/16 09/25/16 09/25/16 09/25/16 07:00 15:00 23:00 07:00 15:00 23:00 Intake Total 60 ml 480 ml 240 ml 75 ml Output Total 410 ml 600 ml Balance -350 ml -120 ml 240 ml 75 ml Intake Oral 60 ml 480 ml 240 ml 75 ml Output Urine Total 410 ml 600 ml # Voids 0 Result Diagram: 09/25/16 0750 09/25/16 0750 Imaging Last Impressions Head CT 09/22/16 1251 Signed Impressions: Service Date/Time: September 13:37 - CONCLUSION: 1. No evidence of acute intracranial pathology. No masses are identified. Jesse Loya MD Chest X-Ray 09/22/16 1251 Signed Impressions: Service Date/Time: September 13:19 - CONCLUSION: 1. Cardiomegaly. No acute pulmonary disease. Jesse Loya MD Lumbar Spine CT 09/22/16 Signed Impressions: Service Date/Time: September 13:40 - CONCLUSION: Destructive soft tissue mass involving the L1 vertebra as noted. This is characteristic of metastatic disease.. Berhane Pavon MD Chest CT 09/22/16 Signed Impressions: Service Date/Time: September 13:40 - CONCLUSION: 1. Overall , interval worsening in the tumor burden with multiple pulmonary mass lesions either stable to slightly enlarged when compared to the prior. 2. In addition, mediastinal lymph node/mass lesions are also larger and now show areas of calcification possibly related to interval treatment. 3. A 4 cm soft tissue mass lesion in the left of the L1 vertebral body with resultant destruction of the vertebral body and posterior elements was not present previously and is also concerning for metastatic deposit. 4. Slight enlargement of the patient's pericardial effusion. This is still small, however. 5. Small left-sided pleural effusion. Christian Brown MD Abdomen/Pelvis CT 09/22/16 Signed Impressions: Service Date/Time: September 13:40 - CONCLUSION: 1. 4.0 x 2.9 cm soft tissue mass lesion involving the left side of the L1 vertebral body. There is partial destruction of both the vertebral body and adjacent posterior elements. The mass may also compromise the left L1 nerve root. Findings are concerning for a neoplastic process. 2. Small pericardial effusion and small left-sided pleural effusion. Bibasilar atelectatic changes. 3. Dystrophic type calcifications in the enlarged left psoas muscle. Findings are nonspecific but may represent prior trauma with myositis ossificans. An infiltrative process cannot be completely excluded, however. Christian Brown MD Objective Remarks GENERAL: NAD SKIN: Warm and dry. HEAD: Normocephalic. EYES: No scleral icterus. No injection or drainage. NECK: Supple, trachea midline. No JVD or lymphadenopathy. CARDIOVASCULAR: Regular rate and rhythm without murmurs, gallops, or rubs. RESPIRATORY: Breath sounds equal bilaterally. No accessory muscle use. GASTROINTESTINAL: Abdomen soft, non-tender, nondistended. MUSCULOSKELETAL: No cyanosis, or edema. BACK: Nontender without obvious deformity. No CVA tenderness. 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 (2) Toxic metabolic encephalopathy ICD Code: G92 Status: Resolved (3) History of squamous cell carcinoma ICD Code: Z85.89 Status: Chronic (4) Type 2 diabetes mellitus ICD Code: E11.9 Status: Chronic (5) Hypothyroidism ICD Code: E03.9 Status: Chronic Assessment and Plan 66-year-old male with Myxedema Coma: Now resolved TSH of 67.200 and Free T4 of 0.18; s/p levothyroxine 600mcg x1 and Solu-Cortef 100mg x 1in ED; s/p Liothyronine 25mcg X 1 in ED as well as; condition is resolved as free T4 0.86.Liothyronine 5mcg Q12H as well as Synthroid 5omcg daily and Solu-Cortef 100mg Q8H were all discontinued 09/24/16 and patient transferred out of the ICU. Hypothyroidism: Continue Synthroid 100 g daily 09/25/16 Hyponatremia: Continue to monitor Toxic metabolic encephalopathy: Resolved; CT Head Negative; Nh3 wnl. 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 Urrutia. Palliative care medicine consultation pending Chronic back pain: CT abdomen/pelvic with finding of 1. 4.0 x 2.9 cm soft tissue mass lesion involving the left side of the L1 vertebral body in a patient with a known history of metastasis SCC; lumbar spine CT noted with finding of metastasis to L1 vertebral body .Patient with history of radiation and chemotherapy. Pain management accordingly however secondary to patient's been lethargic/sleepy this morning 09/25/16 will hold on narcotics. PT to treat and eval. she will need rehabilitation likely to [place] Diabetes type 2: Continue to Hold oral hypoglycemic agent, on insulin sliding scale with fingerstick blood glucose monitoring Hypertension: Continue Lopressor Urinary retention: Patient given bolus , consider to add Flomax Anxiety: on Effexor DVT prophylaxis: Hold anticoagulation; bilateral SCDs Transfer to Eze Centeno MD Sep 25, 2016 09:04
[2016-09-25] MEDS ORDERED: POTASSIUM CL 40 MEQ/30 ML LIQ UDC PO ONE (09:15)
[2016-09-25] MEDS: METOPROLOL SUCCINATE 25 MG EXTENDED RELEASE TAB PO SCH ×2 (09:27→21:52)
[2016-09-25] MEDS: LORATADINE 10 MG TAB PO SCH (09:27)
[2016-09-25] MEDS: DEXAMETHASONE 0.5 MG TAB PO SCH (09:27)
[2016-09-25] MEDS: NYSTAT/DIPHENHY/LIDO MOUTHWASH (Adult) 120ML SWISH-SWAL SCH ×3 (09:27→21:52)
[2016-09-25] MEDS: ESCITALOPRAM OXALATE 10 MG TAB PO SCH (09:27)
[2016-09-25 11:02] LABS: BANDS 9 % (0-6); EOSINOPHILS 1 % (0-4); NEUTROPHIL # MANUAL DIFF 3.6 TH/MM3 (1.8-7.7); OVALOCYTES 1+ (NORMAL); PLATELET ESTIMATE SMEAR LOW (NORMAL); PLATELET MORPHOLOGY NORMAL (NORMAL); POLYS (SEG NEUTROPHILS) 81 % (16-70); SCAN/DIFF FINAL DIFF MANUAL; WBC DIFF SAMPLE 100
--- NOTE | 2016-09-25 11:34 | PD.ONC.PN ---
Subjective Subjective Remarks Afebrile overnight. Pt sleepy, difficult to arouse. Answers questions appropriately but quickly falls back to sleep. Per RN he has not voided since they D/C'd his jackson yesterday afternoon. He has received 1L NS. Objective Data Date Time Temp Pulse Resp B/P Pulse Ox O2 Delivery O2 Flow Rate FiO2 09/25/16 08:00 98.4 69 18 114/63 97 09/25/16 04:00 97.3 70 17 147/67 98 09/25/16 00:00 97.8 70 16 106/63 97 09/24/16 23:17 20 09/24/16 21:00 20 09/24/16 20:00 77 17 98/55 98 09/24/16 18:59 97.3 88 18 95/59 95 09/24/16 18:00 82 09/24/16 16:00 82 09/24/16 16:00 98.0 84 16 113/62 98 09/24/16 14:00 82 09/24/16 12:00 82 09/24/16 12:00 98.2 75 22 116/62 98 Result Diagram: 09/25/16 0750 09/25/16 0750 Laboratory Results Laboratory Tests Test 09/25/16 07:50 White Blood Count 4.0 TH/MM3 Red Blood Count 2.65 MIL/MM3 Hemoglobin 8.8 GM/DL Hematocrit 25.4 % Mean Corpuscular Volume 96.0 FL Mean Corpuscular Hemoglobin 33.3 PG Mean Corpuscular Hemoglobin 34.6 % Concent Red Cell Distribution Width 27.4 % Platelet Count 59 TH/MM3 Mean Platelet Volume 9.2 FL Neutrophils (%) (Auto) 85.6 % Lymphocytes (%) (Auto) 7.2 % Monocytes (%) (Auto) 5.1 % Eosinophils (%) (Auto) 1.7 % Basophils (%) (Auto) 0.4 % Neutrophils # (Auto) 3.4 TH/MM3 Lymphocytes # (Auto) 0.3 TH/MM3 Monocytes # (Auto) 0.2 TH/MM3 Eosinophils # (Auto) 0.1 TH/MM3 Basophils # (Auto) 0.0 TH/MM3 CBC Comment AUTO DIFF Differential Total Cells 100 Counted Neutrophils % (Manual) 81 % Band Neutrophils % 9 % Lymphocytes % 4 % Monocytes % 5 % Eosinophils % 1 % Neutrophils # (Manual) 3.6 TH/MM3 Differential Comment FINAL DIFF MANUAL Platelet Estimate LOW Platelet Morphology Comment NORMAL Ovalocytes 1+ Sodium Level 133 MEQ/L Potassium Level 3.1 MEQ/L Chloride Level 91 MEQ/L Carbon Dioxide Level 32.9 MEQ/L Anion Gap 9 MEQ/L Blood Urea Nitrogen 22 MG/DL Creatinine 1.23 MG/DL Estimat Glomerular Filtration 59 ML/MIN Rate Random Glucose 101 MG/DL Calcium Level 8.2 MG/DL Culture Results Microbiology Date/Time Procedure Status Source Growth 09/22/16 13:20 Aerobic Blood Culture - Preliminary Resulted Blood Peripheral NO GROWTH IN 3 DAYS 09/22/16 13:20 Anaerobic Blood Culture - Preliminary Resulted Blood Peripheral NO GROWTH IN 3 DAYS 09/22/16 13:25 Aerobic Blood Culture - Preliminary Resulted Blood Peripheral NO GROWTH IN 3 DAYS 09/22/16 13:25 Anaerobic Blood Culture - Preliminary Resulted Blood Peripheral NO GROWTH IN 3 DAYS Administered Medications Medications (Trade) Dose Ordered Sig/Jacqueline Route PRN Reason Start Time Stop Time Status Last Admin Dose Admin IV Flush (NS Flush) 2 ml BID FLUSH 09/22/16 21:00 09/24/16 21:00 Docusate Sodium (Colace) 100 mg Q12H PO 09/22/16 15:00 09/24/16 15:00 Sennosides (Senokot) 17.2 mg Q12H PRN PO CONSTIPATION 09/22/16 14:30 09/24/16 20:15 Oxycodone HCl (Roxicodone) 10 mg Q4H PRN PO PAIN SCALE 6 TO 10 09/22/16 14:30 Hold 09/25/16 05:07 Hydromorphone HCl (Dilaudid Pf Inj) 1 mg Q3H PRN IV BREAKTHROUGH PAIN 09/22/16 14:30 09/22/16 18:09 Escitalopram Oxalate (Lexapro) 10 mg DAILY PO 09/23/16 09:00 09/25/16 09:27 Loratadine (Claritin) 10 mg DAILY PO 09/23/16 09:00 09/25/16 09:27 Metoprolol Succinate (Toprol Xl) 25 mg BID PO 09/22/16 21:00 09/25/16 09:27 Tiotropium [place] (Spiriva Inh) 18 mcg DAILY INH 09/23/16 09:00 09/23/16 09:00 Chlorhexidine Gluconate (Chlorhexidine 2% Cloth) 3 pack DAILY@04 TOP 09/23/16 04:00 09/27/16 04:01 09/25/16 04:00 Multi-Ingredient Mouthwash/Gargle (Magic Mouthwash Adult Liq) 10 ml QID SWISH-SWAL 09/23/16 10:00 09/25/16 09:27 Levothyroxine Sodium (Synthroid) 100 mcg DAILY@0600 PO 09/25/16 06:00 09/25/16 05:07 Dexamethasone (Decadron) 1 mg DAILY PO 09/25/16 09:00 09/25/16 09:27 Objective Remarks GENERAL: Middle aged male asleep in bed. Awakens with gentle shaking. Quickly falls back to sleep when not stimulated. SKIN: Warm and dry. HEAD: Normocephalic. EYES: No injection or drainage. NECK: Supple, trachea midline. + mass upon neck. CARDIOVASCULAR: +S1/S2. No murmur appreciated. RESPIRATORY: Lungs clear, diminished. Breathing easy and unlabored. GASTROINTESTINAL: Abdomen soft, non-tender, nondistended. EXTREMITIES: No cyanosis NEUROLOGICAL: Lethargic. Answers questions appropriately. Assessment/Plan Problem List: (1) Myxedema coma Status: Resolved Plan: --per primary --on Synthroid, solu-cortef, Liothyronine, (2) History of squamous cell carcinoma Status: Chronic Plan: --plan for further treatment outpatient as patient's goals remain aggressive. History: --progressed after initial completion of definitive concurrent chemotherapy and radiation. --progressed on pembrolizumab-->then placed on palliative combination chemotherapy and progressed after two cycles. --presented with back pain and was found to have an L1 and L3 lesion. --was referred to Dr. Valdes for palliative radiation. He was placed on Decadron for adjunctive therapy for pain and swelling. did not have any neurologic deficit from the soft tissue lesions in L1 and L3. His systemic chemo regimen was changed to cetuximab. 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 Cintron's esophagus. Cataract. Diabetes type 2. Gastroesophageal reflux. Atrial fibrillation. 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 cOPD. h/o severe hypothyroidism, untreated, probably from the pembrolizumab versus radiation of his neck. Plan 1. Re-insert jackson cath if he has not voided by 5pm. 2. Will give an additional liter bolus with 40meq's K over 4 hours as his K today was 3.1 and he refused po potassium. 3. Once acute issues are resolved, he can followup in the clinic as an outpatient. 4. Supportive care. Tona Kumar Sep 25, 2016 11:34
[2016-09-25 12:00] VITALS: BP 103/53; PULSE 82; RESP 18; TEMP 96.8; O2SAT 94
[2016-09-25] MEDS ORDERED: NS + KCL 40 MEQ INJ 1,000 ML IV ONE (14:15)
[2016-09-25 16:00] VITALS: BP 117/57; PULSE 69; RESP 18; TEMP 97.2; O2SAT 95
[2016-09-25 20:00] VITALS: BP 133/72; PULSE 83; RESP 19; TEMP 96.4; O2SAT 98
[2016-09-26] VITALS: BP 134/72; PULSE 85; RESP 20; TEMP 97; O2SAT 96
[2016-09-26 00:45] LABS: BLOOD, URINE NEG (NEG); GLUCOSE,URINE NEG (NEG); KETONE, URINE NEG (NEG); NITRITE,URINE NEG (NEG); RENAL EPITHELIAL CELLS <1 /hpf; SQUAMOUS EPITHELIAL CELL URINE <1 /hpf (0-5); URINE COLOR YELLOW (YELLW/STRAW)
[2016-09-26 00:47] LABS: COMMENT (UR) CULT NOT INDICATED; CULTURE IF INDICATED CULT NOT INDICATED
[2016-09-26 04:00] VITALS: BP 129/71; PULSE 94; RESP 20; TEMP 97.6; O2SAT 96
[2016-09-26] MEDS: DOCUSATE SODIUM 100 MG CAP PO SCH ×2 (04:41→15:47)
[2016-09-26] MEDS: CHLORHEXIDINE GLUCONATE 2 % 1 PACK (2 CLOTHS)(taper/protocol) TOP SCH (04:44)
[2016-09-26] MEDS: LEVOTHYROXINE SODIUM 100 MCG TAB PO SCH (06:26)
[2016-09-26] MEDS: INSULIN ASPART SUPPLEMENTAL SCALE SQ SCH ×4 (06:26→21:00)
[2016-09-26 07:13] LABS: AUTOMATED NEUTROPHIL # 3.3 TH/MM3 (1.8-7.7); BASOPHIL % 0.5 % (0.0-2.0); EOSINOPHIL # 0.1 TH/MM3 (0-0.4); EOSINOPHIL % 2.1 % (0.0-4.0); LYMPH % 7.3 % (9.0-44.0); LYMPHOCYTE # 0.3 TH/MM3 (1.0-4.8); MEAN CELL VOLUME 96.7 FL (80.0-100.0); MEAN CORPUSCULAR HEMOGLOBIN 33.6 PG (27.0-34.0); MEAN CORPUSCULAR HGB CONC 34.8 % (32.0-36.0); NEUT % 85.1 % (16.0-70.0); PLATELET COUNT 62 TH/MM3 (150-450); RED BLOOD COUNT 2.69 MIL/MM3 (4.50-5.90); RED CELL DISTRIBUTION WIDTH 26.5 % (11.6-17.2); WHITE BLOOD COUNT 3.9 TH/MM3 (4.0-11.0)
[2016-09-26 07:17] LABS: HEMO FLAGS AUTO DIFF
[2016-09-26 07:54] LABS: BICARBONATE 31.2 MEQ/L (21.0-32.0); POTASSIUM 3.5 MEQ/L (3.5-5.1)
[2016-09-26 08:00] VITALS: BP 110/55; PULSE 90; RESP 20; TEMP 96.4; O2SAT 97
[2016-09-26 08:39] LABS: BASOPHILS 1 % (0-2); EOSINOPHILS 2 % (0-4); PLATELET ESTIMATE SMEAR LOW (NORMAL); PLATELET MORPHOLOGY NORMAL (NORMAL); POLYS (SEG NEUTROPHILS) 78 % (16-70); SCAN/DIFF FINAL DIFF MANUAL; WBC DIFF SAMPLE 100
--- NOTE | 2016-09-26 09:30 | HHI.PR ---
Subjective Remarks Follow-up myxedema coma/encephalopathy 09/23/16-patient seen and examined early this morning, appeared much more alert and oriented denies any back pain today. 09/24/16-patient seen and examined, alert and oriented 3. Free T4 0.86 and cortisol level 35.6. Currently afebrile 09/25/16-patient seen and examined. Appears sleepy today. Urinary retention after Nicole were discontinued yesterday, patient was given bolus 500 cc NS . Afebrile 09/26/16-patient seen and examined, alert and oriented 3. Having breakfast this morning. Urinary retention 8 hours despite IV fluid and Nicole placed. Denies any bladder spasm. Currently afebrile. Eating breakfast Objective Vitals Vital Signs Date Time Temp Pulse Resp B/P Pulse Ox O2 Delivery O2 Flow Rate FiO2 09/26/16 04:00 97.6 94 20 129/71 96 09/26/16 00:00 97.0 85 20 134/72 96 09/25/16 20:00 96.4 83 19 133/72 98 09/25/16 16:00 97.2 69 18 117/57 95 09/25/16 12:00 96.8 82 18 103/53 94 I/O 09/25/16 09/25/16 09/25/16 09/26/16 09/26/16 09/26/16 07:00 15:00 23:00 07:00 15:00 23:00 Intake Total 75 ml 1340 ml 120 ml 1135 ml Output Total 100 ml 900 ml Balance 75 ml 1240 ml 120 ml 235 ml Intake Oral 75 ml 300 ml 120 ml 120 ml IV Total 1040 ml 1015 ml Output Urine Total 100 ml 900 ml Bladder Scan Volume Amount 341 ml 363 ml # Voids 0 2 1 # Bowel Movements 2 Result Diagram: 09/26/1662309/26/1624 Objective Remarks GENERAL: NAD SKIN: Warm and dry. HEAD: Normocephalic. EYES: No scleral icterus. No injection or drainage. NECK: Supple, trachea midline. No JVD or lymphadenopathy. CARDIOVASCULAR: Regular rate and rhythm without murmurs, gallops, or rubs. RESPIRATORY: Breath sounds equal bilaterally. No accessory muscle use. GASTROINTESTINAL: Abdomen soft, non-tender, nondistended. MUSCULOSKELETAL: No cyanosis, or edema. BACK: Nontender without obvious deformity. No CVA tenderness. 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 (2) Toxic metabolic encephalopathy ICD Code: G92 Status: Resolved (3) History of squamous cell carcinoma ICD Code: Z85.89 Status: Chronic (4) Type 2 diabetes mellitus ICD Code: E11.9 Status: Chronic (5) Hypothyroidism ICD Code: E03.9 Status: Chronic Assessment and Plan 66-year-old male with Myxedema Coma: Now resolved .TSH of 67.200 and Free T4 of 0.18; s/p levothyroxine 600mcg x1 and Solu-Cortef 100mg x 1in ED; s/p Liothyronine 25mcg X 1 in ED as well as; condition is resolved as free T4 0.86.Liothyronine 5mcg Q12H as well as Synthroid 5omcg daily and Solu-Cortef 100mg Q8H were all discontinued 09/24/16 and patient transferred out of the ICU. Hypothyroidism: Continue Synthroid 100 g daily since 09/25/16 Hyponatremia: Improving Toxic metabolic encephalopathy: Resolved; CT Head Negative; Nh3 wnl. 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 Urrutia. Palliative care medicine consultation pending Chronic back pain: CT abdomen/pelvic with finding of 1. 4.0 x 2.9 cm soft tissue mass lesion involving the left side of the L1 vertebral body in a patient with a known history of metastasis SCC; lumbar spine CT noted with finding of metastasis to L1 vertebral body .Patient with history of radiation and chemotherapy. Pain management accordingly however secondary to patient's been lethargic/sleepy on 09/25/16 despite the fact that this has improved today 09/26/16; narcotics are still on hold . PT to treat and eval. she will need rehabilitation likely to [place] Diabetes type 2: Continue to Hold oral hypoglycemic agent, on insulin sliding scale with fingerstick blood glucose monitoring Hypertension: Continue Lopressor Urinary retention: Start Flomax 0.4 mg daily and consider twice a day dose; consult urology as patient despite IV fluid hydration and Nicole still hasn't urinated over 8 hours. Denies any bladder spasm therefore will hold on belladonna and opium Anxiety: on Effexor DVT prophylaxis: bilateral SCDs PT to treat and eval Eze De Luna MD Sep 26, 2016 09:30
[2016-09-26] MEDS: LORATADINE 10 MG TAB PO SCH (09:39)
[2016-09-26] MEDS: METOPROLOL SUCCINATE 25 MG EXTENDED RELEASE TAB PO SCH ×2 (09:39→22:08)
[2016-09-26] MEDS: ESCITALOPRAM OXALATE 10 MG TAB PO SCH (09:39)
[2016-09-26] MEDS: DEXAMETHASONE 0.5 MG TAB PO SCH (09:40)
[2016-09-26] MEDS: NYSTAT/DIPHENHY/LIDO MOUTHWASH (Adult) 120ML SWISH-SWAL SCH ×4 (09:40→21:00)
[2016-09-26] MEDS: SODIUM CHLORIDE 0.9% FLUSH 5 ML FLUSH FLUSH SCH ×2 (10:01→22:08)
[2016-09-26 12:00] VITALS: BP 110/59; PULSE 86; RESP 20; TEMP 96; O2SAT 94
[2016-09-26] MEDS: TAMSULOSIN HCL 0.4 MG CAP PO SCH (14:04)
[2016-09-26] MEDS: TIOTROPIUM BROMIDE 18 MCG INH INH SCH (14:04)
--- NOTE | 2016-09-26 14:37 | PD.ONC.PN ---
Subjective Subjective Remarks Afebrile overnight. There was some concern about urinary retention this AM, however, this afternoon the patient urinated 400cc. No complaints. Objective Data Date Time Temp Pulse Resp B/P Pulse Ox O2 Delivery O2 Flow Rate FiO2 09/26/16 12:00 96.0 86 20 110/59 94 09/26/16 08:00 96.4 90 20 110/55 97 09/26/16 04:00 97.6 94 20 129/71 96 09/26/16 00:00 97.0 85 20 134/72 96 09/25/16 20:00 96.4 83 19 133/72 98 09/25/16 16:00 97.2 69 18 117/57 95 Result Diagram: 09/26/1624 09/26/16 0624 Laboratory Results Laboratory Tests Test 09/26/16 09/26/16 00:10 06:24 Urine Color YELLOW Urine Turbidity CLEAR Urine pH 7.0 Urine Specific [place] 1.014 Urine Protein NEG mg/dL Urine Glucose (UA) NEG mg/dL Urine Ketones NEG mg/dL Urine Occult Blood NEG Urine Nitrite NEG Urine Bilirubin NEG Urine Urobilinogen LESS THAN 2.0 MG/DL Urine Leukocyte Esterase NEG Urine RBC 1 /hpf Urine WBC LESS THAN 1 /hpf Urine Squamous Epithelial <1 /hpf Cells Urine Renal Epithelial Cells <1 /hpf Microscopic Urinalysis Comment CULT NOT INDICATED White Blood Count 3.9 TH/MM3 Red Blood Count 2.69 MIL/MM3 Hemoglobin 9.0 GM/DL Hematocrit 26.0 % Mean Corpuscular Volume 96.7 FL Mean Corpuscular Hemoglobin 33.6 PG Mean Corpuscular Hemoglobin 34.8 % Concent Red Cell Distribution Width 26.5 % Platelet Count 62 TH/MM3 Mean Platelet Volume 8.5 FL Neutrophils (%) (Auto) 85.1 % Lymphocytes (%) (Auto) 7.3 % Monocytes (%) (Auto) 5.0 % Eosinophils (%) (Auto) 2.1 % Basophils (%) (Auto) 0.5 % Neutrophils # (Auto) 3.3 TH/MM3 Lymphocytes # (Auto) 0.3 TH/MM3 Monocytes # (Auto) 0.2 TH/MM3 Eosinophils # (Auto) 0.1 TH/MM3 Basophils # (Auto) 0.0 TH/MM3 CBC Comment AUTO DIFF Differential Total Cells 100 Counted Neutrophils % (Manual) 78 % Lymphocytes % 14 % Monocytes % 5 % Eosinophils % 2 % Basophils % 1 % Neutrophils # (Manual) 3.0 TH/MM3 Differential Comment FINAL DIFF MANUAL Platelet Estimate LOW Platelet Morphology Comment NORMAL Sodium Level 134 MEQ/L Potassium Level 3.5 MEQ/L Chloride Level 93 MEQ/L Carbon Dioxide Level 31.2 MEQ/L Anion Gap 10 MEQ/L Blood Urea Nitrogen 16 MG/DL Creatinine 1.03 MG/DL Estimat Glomerular Filtration 72 ML/MIN Rate Random Glucose 94 MG/DL Calcium Level 7.8 MG/DL Administered Medications Medications (Trade) Dose Ordered Sig/Jacqueline Route PRN Reason Start Time Stop Time Status Last Admin Dose Admin IV Flush (NS Flush) 2 ml BID FLUSH 09/22/16 21:00 09/26/16 10:01 Docusate Sodium (Colace) 100 mg Q12H PO 09/22/16 15:00 09/26/16 04:41 Sennosides (Senokot) 17.2 mg Q12H PRN PO CONSTIPATION 09/22/16 14:30 09/24/16 20:15 Oxycodone HCl (Roxicodone) 10 mg Q4H PRN PO PAIN SCALE 6 TO 10 09/22/16 14:30 Hold 09/25/16 05:07 Hydromorphone HCl (Dilaudid Pf Inj) 1 mg Q3H PRN IV BREAKTHROUGH PAIN 09/22/16 14:30 Hold 09/22/16 18:09 Escitalopram Oxalate (Lexapro) 10 mg DAILY PO 09/23/16 09:00 09/26/16 09:39 Loratadine (Claritin) 10 mg DAILY PO 09/23/16 09:00 09/26/16 09:39 Metoprolol Succinate (Toprol Xl) 25 mg BID PO 09/22/16 21:00 09/26/16 09:39 Tiotropium [place] (Spiriva Inh) 18 mcg DAILY INH 09/23/16 09:00 09/26/16 14:04 Chlorhexidine Gluconate (Chlorhexidine 2% Cloth) 3 pack DAILY@04 TOP 09/23/16 04:00 09/27/16 04:01 09/26/16 04:44 Multi-Ingredient Mouthwash/Gargle (Magic Mouthwash Adult Liq) 10 ml QID SWISH-SWAL 09/23/16 10:00 09/26/16 14:06 Levothyroxine Sodium (Synthroid) 100 mcg DAILY@0600 PO 09/25/16 06:00 09/26/16 06:26 Dexamethasone (Decadron) 1 mg DAILY PO 09/25/16 09:00 09/26/16 09:40 Tamsulosin HCl (Flomax) 0.4 mg DAILY PO 09/26/16 09:30 09/26/16 14:04 Objective Remarks GENERAL: Middle aged male, weak, sitting up on side of bed. cushingoid face. SKIN: Warm and dry. HEAD: Normocephalic. EYES: No injection or drainage. NECK: Supple, trachea midline. LYMPHATIC: No adenopathy. CARDIOVASCULAR: Regular rate and rhythm RESPIRATORY: Breath sounds equal bilaterally. No accessory muscle use. GASTROINTESTINAL: Abdomen soft, non-tender, nondistended. EXTREMITIES: No cyanosis NEUROLOGICAL: awake and alert, but lethargic with delayed reactions. Assessment/Plan Problem List: (1) History of squamous cell carcinoma Status: Chronic Plan: --plan for further treatment outpatient as patient's goals remain aggressive. History: --progressed after initial completion of definitive concurrent chemotherapy and radiation. --progressed on pembrolizumab-->then placed on palliative combination chemotherapy and progressed after two cycles. --presented with back pain and was found to have an L1 and L3 lesion. --was referred to Dr. Valdes for palliative radiation. He was placed on Decadron for adjunctive therapy for pain and swelling. did not have any neurologic deficit from the soft tissue lesions in L1 and L3. His systemic chemo regimen was changed to cetuximab. (2) Myxedema coma Status: Resolved Plan: --per primary --on Synthroid, solu-cortef, Liothyronine, (3) Urinary retention Status: Acute Plan: --on Flomax --urology has been consulted. 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 Cintron's esophagus. Cataract. Diabetes type 2. Gastroesophageal reflux. Atrial fibrillation. 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 cOPD. h/o severe hypothyroidism, untreated, probably from the pembrolizumab versus radiation of his neck. Plan 1. await urology consult 2. continue supportive care 3. will ask case management [facility] Attending Statement The exam, history, and the medical decision-making described in the above note were completed with the assistance of the mid-level provider. I reviewed and agree with the findings presented. I attest that I had a [id number] encounter with the patient on the same day, and personally performed and documented my assessment and findings in the medical record. Pt seen and examined. Agree with PT assessment that pt lack motivation. Pt state he will be more motivated at home and wishes to go home instead of rehab. 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 Pain controlled. Discussed plan to coordinate DC home w/ his primary team. Ok from hemeonc standpoint pending issue with urinary retention/oliguria. Noted renal function normal/baseline. FU in clinic this week. Nadya Larios Sep 26, 2016 14:37 Cayla Urrutia MD Sep 26, 2016 18:53
[2016-09-26 16:00] VITALS: BP 133/68; PULSE 72; RESP 18; TEMP 96.8; O2SAT 95
[2016-09-26] MEDS: oxyCODONE/ACETAMINOPHEN 5 MG/325 MG TAB PO PRN (19:44)
--- NOTE | 2016-09-26 19:53 | HHI.HCPN ---
Reason for visit a. To assist with evaluation and management of symptoms including: pain; lethargy; generalized weakness b. To assist medical decision maker(s) with: better understanding of current medical conditions; weighing benefits/burdens of medical treatment options; making medical treatment decisions. . Subjective/Interval History Mr. Joiner is now in a regular medical bed - he was transferred out of the ICU on Monday evening. His Free T4 is back in the normal range, but he appeared quite lethargic yesterday. As a result of the lethargy, opioid analgesics were held. the patient is much more awake and alert today, but he is also in more pain. He can't quantify the pain but it is "moderate". He is getting up out of bed to go to the bathroom. He says the pain is not particularly worse when he ambulates the short distance. The pain continues to be in the usual place - - low back -- where he has his metastatic disease. He has an appetite. Denies SOB. He very much wants to go home and was told he might be discharged tomorrow. No other complaints. Afebrile. VSS. Lab stable -- with continued kaye-cytopenia; hypnatremia. U/A unremarkable. Blood cx form 09/22/16 remain "no growth." No new imaging. . From Dr. Phelan's initial palliative care consultation note of 09/24/16.... This is the third [facility] admission in the last year for this 66 y/o male with known metastatic head/neck cancer currently receiving palliative radiation and chemotherapy; diabetes mellitus; hypertension; and stage II chronic kidney disease; who presented to the ED on 09/22/16 complaining of increasing lethargy and weakness over the last week or so which had escalated to the point where he was barely able to get up out of bed. There has been a significant decrease in eating/drinking over the last few days. The patient had been using oxycodone immediate release 5 mg every 4 hours as needed for back pain associated with bony metastasis, but had not received any in the 24 hours prior to presentation. He did receive Ambien the night before presentation which had been presribed approximately a week earlier. There were no reports of fevers, chills, chest pain, nausea, vomiting. The patient had complained of increasing coldness. The patient has been under the care of medical oncology since his initial presentation with his squamous cell head and neck cancer. Unfortunately, there was tumor progression after completing initial definitive concurrent chemotherapy and radiation therapy. After a CT-guided lung biopsy confirmed metastatic disease, he was placed on pembrolizumab. Once again, there was disease progression in spite of treatment. Also, hypothyroidism was noted back in 06/2016 and was thought to be secondary to this chemotherapy. Mr. Joiner was then started on palliative combination (fort bidwell + 5FU) chemotherapy. Once again there was progression. He developed back pain-- lesions at L1 and L3 were discovered. Dexamethasone was started for pain and swelling. Radiation to the lumbar regions was begun and the systemic chemotherapy was changed to cetuximab. Per medical oncology, the patient appeared lethargic and cushingoid about one week ago and dexamethasone dosing was decreased. Patient reports that his pain has been moderate in intensity and readily managed. He gets primarily low back pain which is worse with movement. He reports that 5 mg of immediate release oxycodone eradicates the pain. He will use 2-3 doses of the oxycodone on a typical day. Upon presentation to the ED , initial vital signs were as follows: Temperature 97.1; pulse 91; respiratory rate 16; blood pressure 132/69; pulse oximetry 97% on room air Initial physical exam by the emergency frozen food department manager noted the following : Patient was somnolent and slow in answering questions. Jaundice was noted. Skin was dry. Scleral icterus was present. Tang facies was noted. The remainder of the exam was unremarkable Initial diagnostic testing revealed the following: * CBC showed WBC 5.2; hemoglobin 10.3; platelet count 63 * Coagulation profile showed PT 12.1; INR 1.1; PTT 30.3 * Chemistry profile showed sodium 1:30; potassium 3.7; chloride 88; CO2 33.9; anion gap 8; BUN 19; creatinine 1.27; GFR 57; glucose 87; calcium 8.3; magnesium 1.3 * Liver function studies showed total bilirubin 0.9; AST 53; ALT 31; alkaline phosphatase 105; ammonia less than 10; total protein 6.8; albumin 3.2 * Troponin was less than 0.06 * Lipase is 35 * Thyroid function studies showed free thyroxine at 0.18; TSH 67.2 * Urinalysis was unremarkable * 12-lead EKG revealed atrial fibrillation with occasional PVCs and heart rate of 99 * Chest x-ray revealed no acute pulmonary disease. Cardiomegaly was noted. * CT of the abdomen and pelvis confirmed the L1 vertebral body lesion. There was partial destruction of both the vertebral body and adjacent posterior elements. There was concern that the mass might be compromising the L1 nerve root. There is a small pericardial effusion and small left-sided pleural effusion. * Chest CT showed worsening tumor burden compared to the previous evaluation with multiple pulmonary mass lesions. There is increase in size of the mediastinal lymph nodes. 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 In the ED he was given 600 g intravenous levothyroxine and started on Synthroid by mouth at 100 g. He was given 100 mg of intravenous hydrocortisone and given a fluid bolus. The patient was admitted to the hospitalist service and brought to the intensive care unit for close monitoring. . Family/friend interactions at bedside. Goals still aggressive. Wants to go home, continue cancer directed immunotherapy, re-evaluate response to that therapy, and make further decisions at that point. . Advance Directives Living Will: Completed, but not made available Health Care Surrogate: Copy in medical record Durable Power of Senior Engineer: Never completed Advance Directive Specifics Date completed: A health care surrogate designation dated 03/02/15 is scanned into the EMR. Patient and report a living will has been completed we don't have a copy on file. . Health Care Surrogate(s): Mildred Joiner and Ana M Scherer are listed as the designated joint surrogates. . Documented care wishes: No written documentation of health care preferences/goals on file. . Objective Vital Signs Date Time Temp Pulse Resp B/P Pulse Ox O2 Delivery O2 Flow Rate FiO2 09/26/16 16:00 96.8 72 18 133/68 95 09/26/16 12:00 96.0 86 20 110/59 94 09/26/16 08:00 96.4 90 20 110/55 97 09/26/16 04:00 97.6 94 20 129/71 96 09/26/16 00:00 97.0 85 20 134/72 96 09/25/16 20:00 96.4 83 19 133/72 98 Intake & Output 09/26/16 09/26/16 07:00 19:00 Intake Total 1255 ml 600 ml Output Total 900 ml 400 ml Balance 355 ml 200 ml Intake Oral 240 ml 600 ml IV Total 1015 ml Output Urine Total 900 ml 400 ml Bladder Scan Volume Amount 363 ml # Voids 1 . Physical Exam CONSTITUTIONAL/GENERAL: This is a well nourished patient resting comfortably in a general med-surg bed. Patient answers questions appropriately but speech is often hard to understand. TUBES/LINES/DRAINS: peripheral IV; SKIN: No jaundice, rashes, or lesions. No wounds seen anteriorly. Skin temperature appropriate. Not diaphoretic. EYES: Pupils equal and round. Extraocular motions intact. No scleral icterus. No injection or drainage. Fundi not examined. ENT: Hard of hearing. CARDIOVASCULAR: Irregular rhythm ; rate around 80 -- without murmurs, gallops, or rubs. No JVD though difficult to assess due to neck obesity. RESPIRATORY/CHEST: Symmetric, unlabored respirations. Breath sounds equal bilaterally. No wheezes, rales, or rhonchi. GASTROINTESTINAL: Abdomen soft, non-tender, nondistended. No hepato-splenomegaly , or palpable masses. No guarding. Bowel sounds present. MUSCULOSKELETAL: Extremities without clubbing, cyanosis, or edema. No joint tenderness or effusion noted. No calf tenderness. No mottling or clubbing. LYMPHATICS: Not examined. NEUROLOGICAL: Awake and alert. Motor and sensory grossly within normal limits. Follows commands. Cognitively sharp. Moves all extremities. PSYCHIATRIC: No obvious anxiety/depression. No apparent hallucinations or other psychotic thought process. . Diagnostic Tests Laboratory Laboratory Tests Test 09/24/16 09/25/16 09/26/16 09/26/16 07:27 07:50 00:10 06:24 Sodium Level 131 MEQ/L 133 MEQ/L 134 MEQ/L (136-145) (136-145) (136-145) Potassium Level 3.3 MEQ/L 3.1 MEQ/L 3.5 MEQ/L (3.5-5.1) (3.5-5.1) (3.5-5.1) Chloride Level 91 MEQ/L 91 MEQ/L 93 MEQ/L (98-107) (98-107) (98-107) Carbon Dioxide Level 33.1 MEQ/L 32.9 MEQ/L 31.2 MEQ/L (21.0-32.0) (21.0-32.0) (21.0-32.0) Anion Gap 7 MEQ/L (5-15) 9 MEQ/L (5-15) 10 MEQ/L (5-15) Blood Urea Nitrogen 15 MG/DL (7-18) 22 MG/DL (7-18) 16 MG/DL (7-18) Creatinine 1.01 MG/DL 1.23 MG/DL 1.03 MG/DL (0.60-1.30) (0.60-1.30) (0.60-1.30) Estimat Glomerular Filtration 74 ML/MIN (>89) 59 ML/MIN (>89) 72 ML/MIN (>89) Rate Random Glucose 158 MG/DL 101 MG/DL 94 MG/DL (74-106) (74-106) (74-106) Calcium Level 8.2 MG/DL 8.2 MG/DL 7.8 MG/DL (8.5-10.1) (8.5-10.1) (8.5-10.1) Free Thyroxine 0.86 NG/DL (0.76-1.46) Random Cortisol 35.6 MCG/DL White Blood Count 4.0 TH/MM3 3.9 TH/MM3 (4.0-11.0) (4.0-11.0) Red Blood Count 2.65 MIL/MM3 2.69 MIL/MM3 (4.50-5.90) (4.50-5.90) Hemoglobin 8.8 GM/DL 9.0 GM/DL (13.0-17.0) (13.0-17.0) Hematocrit 25.4 % 26.0 % (39.0-51.0) (39.0-51.0) Mean Corpuscular Volume 96.0 FL 96.7 FL (80.0-100.0) (80.0-100.0) Mean Corpuscular Hemoglobin 33.3 PG 33.6 PG (27.0-34.0) (27.0-34.0) Mean Corpuscular Hemoglobin 34.6 % 34.8 % Concent (32.0-36.0) (32.0-36.0) Red Cell Distribution Width 27.4 % 26.5 % (11.6-17.2) (11.6-17.2) Platelet Count 59 TH/MM3 62 TH/MM3 (150-450) (150-450) Mean Platelet Volume 9.2 FL 8.5 FL (7.0-11.0) (7.0-11.0) Neutrophils (%) (Auto) 85.6 % 85.1 % (16.0-70.0) (16.0-70.0) Lymphocytes (%) (Auto) 7.2 % 7.3 % (9.0-44.0) (9.0-44.0) Monocytes (%) (Auto) 5.1 % (0.0-8.0) 5.0 % (0.0-8.0) Eosinophils (%) (Auto) 1.7 % (0.0-4.0) 2.1 % (0.0-4.0) Basophils (%) (Auto) 0.4 % (0.0-2.0) 0.5 % (0.0-2.0) Neutrophils # (Auto) 3.4 TH/MM3 3.3 TH/MM3 (1.8-7.7) (1.8-7.7) Lymphocytes # (Auto) 0.3 TH/MM3 0.3 TH/MM3 (1.0-4.8) (1.0-4.8) Monocytes # (Auto) 0.2 TH/MM3 0.2 TH/MM3 (0-0.9) (0-0.9) Eosinophils # (Auto) 0.1 TH/MM3 0.1 TH/MM3 (0-0.4) (0-0.4) Basophils # (Auto) 0.0 TH/MM3 0.0 TH/MM3 (0-0.2) (0-0.2) CBC Comment AUTO DIFF AUTO DIFF Differential Total Cells 100 100 Counted Neutrophils % (Manual) 81 % (16-70) 78 % (16-70) Band Neutrophils % 9 % (0-6) Lymphocytes % 4 % (9-44) 14 % (9-44) Monocytes % 5 % (0-8) 5 % (0-8) Eosinophils % 1 % (0-4) 2 % (0-4) Neutrophils # (Manual) 3.6 TH/MM3 3.0 TH/MM3 (1.8-7.7) (1.8-7.7) Differential Comment FINAL DIFF FINAL DIFF MANUAL MANUAL Platelet Estimate LOW (NORMAL) LOW (NORMAL) Platelet Morphology Comment NORMAL NORMAL (NORMAL) (NORMAL) Ovalocytes 1+ (NORMAL) Urine Color YELLOW (YELLW/STRAW) Urine Turbidity CLEAR (CLEAR) Urine pH 7.0 (5.0-8.5) Urine Specific [place] 1.014 (1.002-1.035) Urine Protein NEG mg/dL (NEG-TRACE) Urine Glucose (UA) NEG mg/dL (NEG) Urine Ketones NEG mg/dL (NEG) Urine Occult Blood NEG (NEG) Urine Nitrite NEG (NEG) Urine Bilirubin NEG (NEG) Urine Urobilinogen LESS THAN 2.0 MG/DL (LESS THAN 2.0) Urine Leukocyte Esterase NEG (NEG) Urine RBC 1 /hpf (0-3) Urine WBC LESS THAN 1 /hpf (0-5) Urine Squamous Epithelial <1 /hpf (0-5) Cells Urine Renal Epithelial Cells <1 /hpf (NONE) Microscopic Urinalysis Comment CULT NOT INDICATED Basophils % 1 % (0-2) . Result Diagram: 09/26/1624 09/26/16 0624 Microbiology Microbiology Date/Time Procedure Status Source Growth 09/22/16 13:25 Aerobic Blood Culture - Preliminary Resulted Blood Peripheral NO GROWTH IN 4 DAYS 09/22/16 13:25 Anaerobic Blood Culture - Preliminary Resulted Blood Peripheral NO GROWTH IN 4 DAYS . Imaging Last Impressions Head CT 09/22/16 1251 Signed Impressions: Service Date/Time: September 13:37 - CONCLUSION: 1. No evidence of acute intracranial pathology. No masses are identified. Jesse Loya MD Chest X-Ray 09/22/16 1251 Signed Impressions: Service Date/Time: September 13:19 - CONCLUSION: 1. Cardiomegaly. No acute pulmonary disease. Jesse Loya MD Lumbar Spine CT 09/22/16 0000 Signed Impressions: Service Date/Time: September 13:40 - CONCLUSION: Destructive soft tissue mass involving the L1 vertebra as noted. This is characteristic of metastatic disease.. Berhane Pavon MD Chest CT 09/22/16 0000 Signed Impressions: Service Date/Time: September 13:40 - CONCLUSION: 1. Overall , interval worsening in the tumor burden with multiple pulmonary mass lesions either stable to slightly enlarged when compared to the prior. 2. In addition, mediastinal lymph node/mass lesions are also larger and now show areas of calcification possibly related to interval treatment. 3. A 4 cm soft tissue mass lesion in the left of the L1 vertebral body with resultant destruction of the vertebral body and posterior elements was not present previously and is also concerning for metastatic deposit. 4. Slight enlargement of the patient's pericardial effusion. This is still small, however. 5. Small left-sided pleural effusion. Christian Brown MD Abdomen/Pelvis CT 09/22/16 0000 Signed Impressions: Service Date/Time: September 13:40 - CONCLUSION: 1. 4.0 x 2.9 cm soft tissue mass lesion involving the left side of the L1 vertebral body. There is partial destruction of both the vertebral body and adjacent posterior elements. The mass may also compromise the left L1 nerve root. Findings are concerning for a neoplastic process. 2. Small pericardial effusion and small left-sided pleural effusion. Bibasilar atelectatic changes. 3. Dystrophic type calcifications in the enlarged left psoas muscle. Findings are nonspecific but may represent prior trauma with myositis ossificans. An infiltrative process cannot be completely excluded, however. Christian Brown MD . Assessment and Plan Disease Oriented Problem List: (1) Squamous cell carcinoma Comment: Unkown primary. First found in the neck, now metastatic to lungs, mediastinal nodes, L1 , lumbar musculature. Cancer has progressed in spite of multiple therapies. . 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 Improving. . (3) Diabetes mellitus, type 2 (4) COPD (chronic obstructive pulmonary disease) Comment: 51 pack year smoker. Uses Spiriva, but not on home 02 or home nebulizer treatments. . . (5) Atrial fibrillation with RVR Comment: Rate controlled on metoprolol. . (6) History of coronary artery disease Comment: Hx of "Silent [place]". No recent symptoms. . (7) Hypertension (8) Chronic renal failure, stage 2 (mild) Symptom Scale: (1) Pain 0-10 Scale: Unable to quantify Comment: Moderate pain today. Pain is usually low back at the site of his known metastatic disease around L1. Normally responds well to 5 mg of oxycodone immediate release. (2) Encephalopathy 0-10 Scale: 0 Comment: Resolved with thyroid supplementation. . (3) Generalized weakness 0-10 Scale: Unable to quantify Comment: Improved with thyroid supplementation. Probably some residual weakness due to cancer and de-conditioning. Most of the acute weakness, however , appeared to be thyroid related. . Pertinent Non-Medical Issues Psychosocial: Normally lives at home with . His daughter-Ana M Gilmer - is a local primary care physician. His son-in-law -- Bill Scherer -- is an ER doctor and physician medical office administrator at [employer]. Daughter Janelle also lives in the area. Spiritual: Episcopalian background. Attends jainism rarely. Legal: Health care surrogate designation is scanned into EMR -- (Mildred) and daughter (Ana M) are co-surrogates. Ethical issues impacting care: Patient is currently capacitated to make his own health care decisions. . Important Contacts * Ana M Scherer MD (daughter and co-surrogate) [phone] * Mildred Joiner (spouse) [phone]; [phone] . Prognosis Patient has metastatic squamous cell cancer that has continued to progress in spite of multiple treatments. He is on a new immunotherapy and it has yet to be seen whether this will be able to slow the progress of the disease. The acute weakness and lethargy and mental status changes that brought him to the hospital appear more to do with the hypothyroidism and less to do with the cancer. though the patient has continued to functionally decline, he was still getting out of the house up until the myxedema symptoms and had well controlled pain. His goals remain aggressive at this time. At such time that he desires to transition to comfort focused care, he would certainly be an eligible candidate for hospice. . Code Status: Full Code Plan == Code Status: FULL CODE. Patient will be speaking to family about this but wants full code for now. == Decision making: Patient is currently capacitated to make his own health care decisions. He is appropriately consulting with family. Should he become incapacitated, his (Mildred Joiner) and daughter (Ana M Scherer MD) are equal co-surrogates. == Goals of medical treatment: Patient is quite clear that he wants ongoing aggressive cancer-directed treatments for now. He feels his current quality of life is worth fighting for even if he risks complications of the treatments. His pain level is manageable. He is open to discussing resuscitation goals with family after we discussed how resuscitations in those with advanced cancer rarely return a patient to a life of meaning and purpose even if the life is saved. Dr. Urrutia also feels that it is well worth treating the myxedema, completing the current planned treatment, and seeing if there is response to the new immunotherapy and directed radiation treatments. If there is progression in spite of those treatments, that might be the best time to re- consider goals. supports this plan. Complicating the patient's goals are financial concerns. He let me know that as long as he remains alive he continues to bring income into the household. Have asked family to bring in a copy of the living will for us to scan into the EMR. == Pain: Pain has mostly been attributed to his lumbar metastatic disease. It is worse with movement. Per patient and , it is well managed on his current oxycodone dosing. No further recommendations at this time. == Generalized weakness/lethargy: A good part of this is probably due to the hypothyroidism (in turn due to chemotherapy and radiation) . Already improving. Once the hypothyroidism is adequately treated, we will know how much of the fatigue weakness is due to the cancer. == Altered mental status : Also probably due to the hypothyroidism. Improving with treatment. No further recommendation at this time. == Patient tells me he is likely to be discharged tomorrow. I have provided with my contact information and have encouraged her to call if there are issues with pain or if she would like further discussions regarding goals of treatment. . . Attestation To help prompt me to consider important information that might be impacting today's encounter and assessment, information from prior notes written by myself or my colleagues may have been "brought forward" into today's note. My signature on this note, however, is an attestation that I personally performed the exam, history, and/or decision-making noted today, and, unless otherwise indicated, the interactions with patient, family, and staff as well as the review of records all occurred today. I also attest that the listed assessment and stated plan reflect my best clinical judgment today based on the combination of historical information, prior notes, and today's exam/ interactions. When time spent is documented, it refers only to time spent today by the signer, or if indicated, combined time spent today by collaborating physician/nurse practitioner. . Leonel Phelan MD Sep 26, 2016 19:53
[2016-09-26 20:00] VITALS: BP 108/71; PULSE 90; RESP 16; TEMP 96.5; O2SAT 92
[2016-09-27] VITALS: BP 124/81; PULSE 75; RESP 16; TEMP 96.9; O2SAT 93
[2016-09-27 04:00] VITALS: BP 114/62; PULSE 74; RESP 18; TEMP 97.1; O2SAT 98
[2016-09-27] MEDS: DOCUSATE SODIUM 100 MG CAP PO SCH (04:06)
[2016-09-27] MEDS: oxyCODONE/ACETAMINOPHEN 5 MG/325 MG TAB PO PRN (04:07)
[2016-09-27] MEDS: CHLORHEXIDINE GLUCONATE 2 % 1 PACK (2 CLOTHS)(taper/protocol) TOP SCH (04:09)
[2016-09-27] MEDS: INSULIN ASPART SUPPLEMENTAL SCALE SQ SCH (05:08)
[2016-09-27] MEDS: LEVOTHYROXINE SODIUM 100 MCG TAB PO SCH (05:09)
[2016-09-27 08:00] VITALS: BP 111/74; PULSE 73; RESP 20; TEMP 95.6; O2SAT 98
[2016-09-27] MEDS ORDERED: OXYC1TAB63 PO (08:36)
[2016-09-27] MEDS ORDERED: TAMS5CAP PO (08:36)
[2016-09-27] MEDS ORDERED: LEVO.1 PO (08:36)
--- NOTE | 2016-09-27 10:02 | HHI.PR ---
Subjective Remarks Follow-up myxedema coma/encephalopathy 09/23/16-patient seen and examined early this morning, appeared much more alert and oriented denies any back pain today. 09/24/16-patient seen and examined, alert and oriented 3. Free T4 0.86 and cortisol level 35.6. Currently afebrile 09/25/16-patient seen and examined. Appears sleepy today. Urinary retention after Nicole were discontinued yesterday, patient was given bolus 500 cc NS . Afebrile 09/26/16-patient seen and examined, alert and oriented 3. Having breakfast this morning. Urinary retention 8 hours despite IV fluid and Nicole placed. Denies any bladder spasm. Currently afebrile. Eating breakfast 09/27/16-patient seen and examined, urinary retention symptoms now resolved. Patient alert and oriented 3. Stated was up and did ambulate outside of his room yesterday. Currently afebrile. Objective Vitals Vital Signs Date Time Temp Pulse Resp B/P Pulse Ox O2 Delivery O2 Flow Rate FiO2 09/27/16 08:00 95.6 73 20 111/74 98 09/27/16 04:00 97.1 74 18 114/62 98 09/27/16 00:00 96.9 75 16 124/81 93 09/26/16 20:00 96.5 90 16 108/71 92 09/26/16 16:00 96.8 72 18 133/68 95 09/26/16 12:00 96.0 86 20 110/59 94 I/O 09/26/16 09/26/16 09/26/16 09/27/16 09/27/16 09/27/16 07:00 15:00 23:00 07:00 15:00 23:00 Intake Total 1135 ml 600 ml 240 ml 400 ml Output Total 900 ml 400 ml 600 ml Balance 235 ml 200 ml 240 ml -200 ml Intake Oral 120 ml 600 ml 240 ml 400 ml IV Total 1015 ml Output Urine Total 900 ml 400 ml 600 ml Bladder Scan Volume Amount 363 ml # Voids 1 Result Diagram: 09/26/16 0624 09/26/16 0624 Imaging Last Impressions Head CT 09/22/16 1251 Signed Impressions: Service Date/Time: September 13:37 - CONCLUSION: 1. No evidence of acute intracranial pathology. No masses are identified. Jesse Loya MD Chest X-Ray 09/22/16 1251 Signed Impressions: Service Date/Time: September 13:19 - CONCLUSION: 1. Cardiomegaly. No acute pulmonary disease. Jesse Loya MD Lumbar Spine CT 09/22/16 0000 Signed Impressions: Service Date/Time: September 13:40 - CONCLUSION: Destructive soft tissue mass involving the L1 vertebra as noted. This is characteristic of metastatic disease.. Berhane Pavon MD Chest CT 09/22/16 0000 Signed Impressions: Service Date/Time: September 13:40 - CONCLUSION: 1. Overall , interval worsening in the tumor burden with multiple pulmonary mass lesions either stable to slightly enlarged when compared to the prior. 2. In addition, mediastinal lymph node/mass lesions are also larger and now show areas of calcification possibly related to interval treatment. 3. A 4 cm soft tissue mass lesion in the left of the L1 vertebral body with resultant destruction of the vertebral body and posterior elements was not present previously and is also concerning for metastatic deposit. 4. Slight enlargement of the patient's pericardial effusion. This is still small, however. 5. Small left-sided pleural effusion. Christian Brown MD Abdomen/Pelvis CT 09/22/16 0000 Signed Impressions: Service Date/Time: September 13:40 - CONCLUSION: 1. 4.0 x 2.9 cm soft tissue mass lesion involving the left side of the L1 vertebral body. There is partial destruction of both the vertebral body and adjacent posterior elements. The mass may also compromise the left L1 nerve root. Findings are concerning for a neoplastic process. 2. Small pericardial effusion and small left-sided pleural effusion. Bibasilar atelectatic changes. 3. Dystrophic type calcifications in the enlarged left psoas muscle. Findings are nonspecific but may represent prior trauma with myositis ossificans. An infiltrative process cannot be completely excluded, however. Christian Brown MD Objective Remarks GENERAL: NAD SKIN: Warm and dry. HEAD: Normocephalic. EYES: No scleral icterus. No injection or drainage. NECK: Supple, trachea midline. No JVD or lymphadenopathy. CARDIOVASCULAR: Regular rate and rhythm without murmurs, gallops, or rubs. RESPIRATORY: Breath sounds equal bilaterally. No accessory muscle use. GASTROINTESTINAL: Abdomen soft, non-tender, nondistended. MUSCULOSKELETAL: No cyanosis, or edema. BACK: Nontender without obvious deformity. No CVA tenderness. 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 (2) Toxic metabolic encephalopathy ICD Code: G92 Status: Resolved (3) History of squamous cell carcinoma ICD Code: Z85.89 Status: Chronic (4) Type 2 diabetes mellitus ICD Code: E11.9 Status: Chronic (5) Hypothyroidism ICD Code: E03.9 Status: Chronic (6) Urinary retention ICD Code: R33.9 Status: Resolved Assessment and Plan 66-year-old male with Myxedema Coma: Now resolved .TSH of 67.200 and Free T4 of 0.18; s/p levothyroxine 600mcg x1 and Solu-Cortef 100mg x 1in ED; s/p Liothyronine 25mcg X 1 in ED as well as; condition is resolved as free T4 0.86.Liothyronine 5mcg Q12H as well as Synthroid 5omcg daily and Solu-Cortef 100mg Q8H were all discontinued 09/24/16 and patient transferred out of the ICU. Hypothyroidism: Currently Synthroid 100 g daily since 09/25/16. Recommend testing for TSH and free T4 in 4-6 weeks Hyponatremia: Improving Toxic metabolic encephalopathy: Resolved; CT Head Negative; Nh3 wnl. 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 Urrutia. Palliative care medicine consultation pending Chronic back pain: CT abdomen/pelvic with finding of 1. 4.0 x 2.9 cm soft tissue mass lesion involving the left side of the L1 vertebral body in a patient with a known history of metastasis SCC; lumbar spine CT noted with finding of metastasis to L1 vertebral body .Patient with history of radiation and chemotherapy. Continue with low dose Percocet. PT to treat and eval. she will need rehabilitation likely to Erik Diabetes type 2: Continue to Hold oral hypoglycemic agent, on insulin sliding scale with fingerstick blood glucose monitoring Hypertension: Continue Lopressor Urinary retention: Resolved, continue with Flomax 0.4 mg daily. Will cancel urology consultation Anxiety: on Effexor DVT prophylaxis: bilateral SCDs PT to treat and eval Eze De Luna MD Sep 27, 2016 10:02
--- NOTE | 2016-09-27 10:06 | HHI.DS ---
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 Patient with a history of metastasis to his lumbar spine requiring pain medications, however per family member has not received any narcotics over the past 24 hours and was only treated last night with Ambien. Patient was found to be tremendously lethargic this morning. Over the past several weeks patient has been complaining of worsening coldness. He has had decreased appetite and by mouth intakes over the past several days. There is no report of upper respiratory symptoms. Patient continued to complain of low back pain with decrease urine output output. Abnormal labs include TSH of 67.200 and free T4 of 0.18 with a temperature of 97.1 and a sodium of 1:30. There is no report of GI bleed, hemoptysis or hematuria. CBC/BMP: 09/26/16 0624 09/26/16 0624 Significant Findings Laboratory Tests Test 09/25/16 09/26/16 07:50 06:24 Red Blood Count 2.65 MIL/MM3 2.69 MIL/MM3 (4.50-5.90) (4.50-5.90) Hemoglobin 8.8 GM/DL 9.0 GM/DL (13.0-17.0) (13.0-17.0) Hematocrit 25.4 % 26.0 % (39.0-51.0) (39.0-51.0) Red Cell Distribution Width 27.4 % 26.5 % (11.6-17.2) (11.6-17.2) Platelet Count 59 TH/MM3 62 TH/MM3 (150-450) (150-450) Neutrophils (%) (Auto) 85.6 % 85.1 % (16.0-70.0) (16.0-70.0) Lymphocytes (%) (Auto) 7.2 % 7.3 % (9.0-44.0) (9.0-44.0) Lymphocytes # (Auto) 0.3 TH/MM3 0.3 TH/MM3 (1.0-4.8) (1.0-4.8) Neutrophils % (Manual) 81 % (16-70) 78 % (16-70) Band Neutrophils % 9 % (0-6) Lymphocytes % 4 % (9-44) Platelet Estimate LOW (NORMAL) LOW (NORMAL) Ovalocytes 1+ (NORMAL) Sodium Level 133 MEQ/L 134 MEQ/L (136-145) (136-145) Potassium Level 3.1 MEQ/L (3.5-5.1) Chloride Level 91 MEQ/L 93 MEQ/L (98-107) (98-107) Carbon Dioxide Level 32.9 MEQ/L (21.0-32.0) Blood Urea Nitrogen 22 MG/DL (7-18) Estimat Glomerular Filtration 59 ML/MIN (>89) 72 ML/MIN (>89) Rate Calcium Level 8.2 MG/DL 7.8 MG/DL (8.5-10.1) (8.5-10.1) White Blood Count 3.9 TH/MM3 (4.0-11.0) Imaging Last Impressions Head CT 09/22/16 1251 Signed Impressions: Service Date/Time: September 13:37 - CONCLUSION: 1. No evidence of acute intracranial pathology. No masses are identified. Jesse Loya MD Chest X-Ray 09/22/16 1251 Signed Impressions: Service Date/Time: September 13:19 - CONCLUSION: 1. Cardiomegaly. No acute pulmonary disease. Jesse Loya MD Lumbar Spine CT 09/22/16 0000 Signed Impressions: Service Date/Time: September 13:40 - CONCLUSION: Destructive soft tissue mass involving the L1 vertebra as noted. This is characteristic of metastatic disease.. Berhane Pavon MD Chest CT 09/22/16 0000 Signed Impressions: Service Date/Time: September 13:40 - CONCLUSION: 1. Overall , interval worsening in the tumor burden with multiple pulmonary mass lesions either stable to slightly enlarged when compared to the prior. 2. In addition, mediastinal lymph node/mass lesions are also larger and now show areas of calcification possibly related to interval treatment. 3. A 4 cm soft tissue mass lesion in the left of the L1 vertebral body with resultant destruction of the vertebral body and posterior elements was not present previously and is also concerning for metastatic deposit. 4. Slight enlargement of the patient's pericardial effusion. This is still small, however. 5. Small left-sided pleural effusion. Christian Brown MD Abdomen/Pelvis CT 09/22/16 0000 Signed Impressions: Service Date/Time: September 13:40 - CONCLUSION: 1. 4.0 x 2.9 cm soft tissue mass lesion involving the left side of the L1 vertebral body. There is partial destruction of both the vertebral body and adjacent posterior elements. The mass may also compromise the left L1 nerve root. Findings are concerning for a neoplastic process. 2. Small pericardial effusion and small left-sided pleural effusion. Bibasilar atelectatic changes. 3. Dystrophic type calcifications in the enlarged left psoas muscle. Findings are nonspecific but may represent prior trauma with myositis ossificans. An infiltrative process cannot be completely excluded, however. Christian Brown MD PE at Discharge GENERAL: NAD SKIN: Warm and dry. HEAD: Normocephalic. EYES: No scleral icterus. No injection or drainage. NECK: Supple, trachea midline. No JVD or lymphadenopathy. CARDIOVASCULAR: Regular rate and rhythm without murmurs, gallops, or rubs. RESPIRATORY: Breath sounds equal bilaterally. No accessory muscle use. GASTROINTESTINAL: Abdomen soft, non-tender, nondistended. MUSCULOSKELETAL: No cyanosis, or edema. BACK: Nontender without obvious deformity. No CVA tenderness. Hospital Course Patient was admitted and diagnosed with myxedema, for which was treated with IV thyroid replacements including levothyroxine and liothyronine as well as Solu- Cortef with monitoring of cortisone level and free T4. Patient was admitted in ICU for management. He was switched then to by mouth Synthroid as repeat free T4 on day 3 was normal. Liothyronine was discontinued so was Solu-Cortef as repeat cortisone level was also normal. Patient's mentation improved and patient was subsequently transferred to a medical [facility]. Medical oncology was consulted as well as palliative care medicine secondary to patient's history of squamous cell carcinoma of the head and neck with metastasis. His diet was advanced accordingly. Hospitalization was complicated by urinary retention for which patient was given bolus normal saline and started on Flomax with resolution of symptom. Oral hypoglycemic agents Oral antihypertensive medication was resumed and patient was placed back on his anxiety medications. PT was consulted and pain medication was adjusted accordingly secondary to patient's lethargy. DVT and GI prophylaxis were provided. Prior to discharge patient condition improved and vital remained stable. Pt Condition on Discharge: Fair Discharge Disposition: Disch w/ Home Health Serv Discharge Time: > 30 minutes Discharge Instructions DIET: Follow Instructions for: Diabetic Diet Follow up Referrals: Oncology PCP Follow-up - 1 Week New Medications: Transport Chair Ultra Lig (Transport Chair Ultra Lig) 1 Mis Mis 1 EA .ROUTE DIRECTED #1 EA Levothyroxine (Synthroid) 100 Mcg Tab 100 MCG PO DAILY@0600 Thyroid Supplement #30 TAB Oxycodone-Acetaminophen (Oxycodone-Acetaminophen) 5-325 mg Tab 1 TAB PO Q4H PRN pain 2-10 #10 TAB Tamsulosin (Flomax) 0.4 Mg Cap 0.4 MG PO DAILY Urinary Symptom Managemen #30 CAP Continued Medications: Dexamethasone (Dexamethasone) 1 Mg Tab 1 MG PO DAILY Ref 0 TAB Escitalopram (Escitalopram) 10 Mg Tab 10 MG PO DAILY #30 Ref [address] (Nexium) 20 Mg Capdr 20 MG PO DAILY Ref 0 CAP Glipizide (Glipizide) 5 Mg Tab 5 MG PO BIDAC Take 30 minutes before a meal Blood Sugar Management #60 Ref 0 TAB Loratadine (Claritin) 10 Mg Tab 10 MG PO DAILY Allergy Management Ref 0 TAB Metoprolol Succinate ER 24 HR (Metoprolol Succinate ER 24 HR) 25 Mg Tab 25 MG PO BID #30 Ref 0 TAB Sennosides (Ex-Lax) 15 Mg Tab 15 MG PO BID PRN CONSTIPATION Ref 0 TAB Tiotropium Inh (Spiriva Handihaler) 18 Mcg Cap 18 MCG INH DAILY 1 capsule = 18 mcg COPD #30 Ref 0 CAP Eze De Luna MD Sep 27, 2016 10:06 Tamsulosin (Flomax) 0.4 Mg Cap 0.4 MG PO DAILY Urinary Symptom Managemen #30 CAP Continued Medications: Dexamethasone (Dexamethasone) 1 Mg Tab 1 MG PO DAILY Ref 0 TAB Escitalopram (Escitalopram) 10 Mg Tab 10 MG PO DAILY #30 Ref [address] (Nexium) 20 Mg Capdr 20 MG PO DAILY Ref 0 CAP Glipizide (Glipizide) 5 Mg Tab 5 MG PO BIDAC Take 30 minutes before a meal Blood Sugar Management #60 Ref 0 TAB Loratadine (Claritin) 10 Mg Tab 10 MG PO DAILY Allergy Management Ref 0 TAB Metoprolol Succinate ER 24 HR (Metoprolol Succinate ER 24 HR) 25 Mg Tab 25 MG PO BID #30 Ref 0 TAB Sennosides (Ex-Lax) 15 Mg Tab 15 MG PO BID PRN CONSTIPATION Ref 0 TAB Tiotropium Inh (Spiriva Handihaler) 18 Mcg Cap 18 MCG INH DAILY 1 capsule = 18 mcg COPD #30 Ref 0 CAP Eze De Luna MD Sep 27, 2016 10:06
[2016-09-27] MEDS: TAMSULOSIN HCL 0.4 MG CAP PO SCH (10:45)
[2016-09-27] MEDS: LORATADINE 10 MG TAB PO SCH (10:45)
[2016-09-27] MEDS: ESCITALOPRAM OXALATE 10 MG TAB PO SCH (10:46)
[2016-09-27] MEDS: METOPROLOL SUCCINATE 25 MG EXTENDED RELEASE TAB PO SCH (10:46)
[2016-09-27] MEDS: DEXAMETHASONE 0.5 MG TAB PO SCH (10:46)
[2016-09-27] MEDS: SODIUM CHLORIDE 0.9% FLUSH 5 ML FLUSH FLUSH SCH (10:47)
[2016-09-27] MEDS: TIOTROPIUM BROMIDE 18 MCG INH INH SCH (10:47)
[2016-09-27] MEDS: NYSTAT/DIPHENHY/LIDO MOUTHWASH (Adult) 120ML SWISH-SWAL SCH (10:47)
[2016-09-27] MEDS ORDERED: TRANSPORT CHAIR1 MIS (11:47)
--- NOTE | 2016-09-27 11:48 | HHI.FF ---
Face to Face Verification Diagnosis: (1) Myxedema coma (2) Toxic metabolic encephalopathy (3) History of squamous cell carcinoma Physical Therapy Order: Evaluate and Treat Home Health Nursing Order: Signs/symptoms of disease process I have seen patient Shabbir Joiner on 09/27/16. My clinical findings support the need for the requested home health care services because: Deconditioned w/ increased weakness I certify that my clinical findings support that this patient is homebound because: Poor cardiac reserve Eze De Luna MD Sep 27, 2016 11:48
== END 2016-09-27 11:31 | disposition home health service (06) | DRG 80 ==
LOC: NEPE 12:42 → NEDA 14:25 → HIMW 18:00 → HOCB 09-24 18:21
PROVIDERS: ADMIT Hospitalist; ATTEND Hospitalist
DX: E03.5 Myxedema coma (principal); G92 Toxic encephalopathy; C79.51 Secondary malignant neoplasm of bone; I48.91 Unspecified atrial fibrillation; K22.70 Barrett's esophagus without dysplasia; E87.1 Hypo-osmolality and hyponatremia; C76.0 Malignant neoplasm of head, face and neck; J44.9 Chronic obstructive pulmonary disease, unspecified; E11.9 Type 2 diabetes mellitus without complications; Z79.84 Long term (current) use of oral hypoglycemic drugs; R33.9 Retention of urine, unspecified; Z92.21 Personal history of antineoplastic chemotherapy; Z92.3 Personal history of irradiation; I12.9 Hypertensive chronic kidney disease with stage 1 through stage 4 chronic kidney disease, or unspecified chronic kidney disease; N18.2 Chronic kidney disease, stage 2 (mild); E78.5 Hyperlipidemia, unspecified; K21.9 Gastro-esophageal reflux disease without esophagitis; F17.210 Nicotine dependence, cigarettes, uncomplicated; F41.9 Anxiety disorder, unspecified; I25.10 Atherosclerotic heart disease of native coronary artery without angina pectoris; H91.90 Unspecified hearing loss, unspecified ear; D64.9 Anemia, unspecified
CPT/HCPCS: 70450; 71010; 71250; 72131; 74176; 80048; 80053; 81001; 82140; 82533; 82550; 82552; 82948; 83690; 83735; 84439; 84443; 84484; 85007; 85025; 85027; 85610; 85730; 86850; 86900; 86901; 87040; 87641; 93005; J1170; J1720; J1815; J3475; J3480; J7040; J7050; J8540

== ENCOUNTER 2016-10-28 11:36 | Inpatient (IN) | payer MEDICARE, OTHER ==
[~2016-10-28 11:36] MED LIST changes: -APIX5TAB PO; +DEXA1TAB PO; +ESCI10TA PO; +LEVO.1 PO; -OXYC-395 PO; +OXYC1CON3 PO; +OXYC1TAB63 PO; +TAMS5CAP PO; +TRANSPORT CHAIR1 MIS; -[UNRECOGNIZED DRUG - OTHER] PO
[2016-10-28 12:30] VITALS: BP 115/60; PULSE 99; RESP 20; TEMP 96.9; O2SAT 97
[2016-10-28] MEDS ORDERED: SODIUM CHLORIDE 0.9% FLUSH 5 ML FLUSH IVF PRN (13:00)
[2016-10-28] MEDS ORDERED: FUROSEMIDE 20 MG/2 ML VIAL IV PUSH ONE (13:00)
[2016-10-28] MEDS ORDERED: SENNOSIDES 8.6 MG TAB PO PRN (13:15)
--- NOTE | 2016-10-28 13:18 | HHI.HP ---
[facility] Norman Bentley MD Admission Diagnosis Diagnoses: Chief Complaint: Hypoxemia, fluid overload Travel History International Travel<30 Days: No Contact w/Intl Traveler <30 Da: No History of Present Illness 66-year-old male with multiple comorbid conditions including metastatic squamous cell cancer, atrial fibrillation, CAD, hypothyroidism, hypertension, chronic renal insufficiency, COPD, type 2 diabetes, jugular vein thrombosis. The patient was sent to the hospital from the oncology clinic where he was found to be hypoxemic with oxygen saturation in the 80s on room air. According to the patient and his , he has been having increasing lower extremity swelling and difficulty with breathing for the past 2 weeks. He presented to his primary care physician earlier this week. A chest x-ray revealed some pulmonary edema and Lasix was increased to 40 mg twice a day. However he continues to get worse. Given the hypoxemia noted in the clinic today, he was given 20 mg of IV Lasix and admitted to the hospital for further workup and treatment. The patient's also report that he has been having episodes of confusions especially in the morning. The patient does not remember these episodes. He denies any chest pain. No nausea or vomiting. Review of Systems Constitutional: COMPLAINS OF: Weight gain, DENIES: Fever, Chills Endocrine: DENIES: Polydipsia, Polyuria Eyes: DENIES: Blurred vision Ears, nose, mouth, throat: DENIES: Oral lesions Respiratory: COMPLAINS OF: Shortness of breath, DENIES: Cough Cardiovascular: COMPLAINS OF: Lower Extremity Edema, Orthopnea, DENIES: Chest pain Gastrointestinal: DENIES: Nausea, Vomiting Genitourinary: DENIES: Dysuria Musculoskeletal: DENIES: Joint pain Integumentary: COMPLAINS OF: Rash (developed sacral ulcer) Psychiatric: COMPLAINS OF: Confusion Past Family Social History Past Medical History Metastatic squamous cell cancer of the neck, atrial fibrillation, CAD, hypertension, chronic renal insufficiency, COPD, type 2 diabetes, jugular vein thrombosis. Hyperlipidemia Hypothyroidism with recent myxedema coma about a month and half ago. Past Surgical History PEG tube placement. This has since been removed. Port placement EGD and colonoscopy Vasectomy Reported Medications Reported Meds & Active Scripts Active Transport Chair Ultra Lig (Device) 1 Mis Mis 1 Ea .ROUTE DIRECTED Flomax (Tamsulosin HCl) 0.4 Mg Cap 0.4 Mg PO DAILY Oxycodone-Acetaminophen 5-325 mg Tab 1 Tab PO Q4H PRN Synthroid (Levothyroxine Sodium) 100 Mcg Tab 100 Mcg PO DAILY@0600 Reported Eliquis (Apixaban) 5 Mg Tab 5 Mg PO BID Oxycodone Liq (Oxycodone HCl) 20 Mg/Ml Conc 5 Mg PO Q4H PRN Dexamethasone 1 Mg Tab 1 Mg PO DAILY Escitalopram (Escitalopram Oxalate) 10 Mg Tab 10 Mg PO DAILY Claritin (Loratadine) 10 Mg Tab 10 Mg PO DAILY Nexium (Esomeprazole DR) 20 Mg Capdr 20 Mg PO DAILY Glipizide 5 Mg Tab 5 Mg PO BIDAC Take 30 minutes before a meal Spiriva Handihaler (Tiotropium Inh) 18 Mcg Cap 18 Mcg INH DAILY 1 capsule = 18 mcg Ex-Lax (Sennosides) 15 Mg Tab 15 Mg PO BID PRN Metoprolol Succinate ER 24 HR (Metoprolol Succinate) 25 Mg Tab 25 Mg PO BID Allergies: Coded Allergies: Contrast Media (Verified Allergy, Mild, Hives, 08/13/16) Iodine (Verified Allergy, Unknown, 09/22/16) Family History Mother of heart failure Father had accidental Brother undergoing treatment for mesothelioma Social History Patient smoked to prior per day for 50 years. He quit one year ago. He admits to drinking 2 vodka drinks every night. Denies ever going through withdrawals. 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 Physical Exam Vital Signs Vital Signs Date Time Temp Pulse Resp B/P Pulse Ox O2 Delivery O2 Flow Rate FiO2 10/28/16 12:30 96.9 99 20 115/60 97 Physical Exam GENERAL: Obese male in no acute distress. SKIN: In the sacral area, there are 2 small pressure ulcers. HEAD: Atraumatic. Normocephalic. No temporal or scalp tenderness. EYES: Pupils equal round and reactive. Extraocular motions intact. No scleral icterus. No injection or drainage. ENT: Nose without drainage Uvula midline. Airway patent. NECK: Trachea midline. CARDIOVASCULAR: Normal rate and irregular rhythm without murmurs, gallops, or rubs. RESPIRATORY: Respiratory effort is fair. There are faint crackles at the bases bilaterally. No wheezing. GASTROINTESTINAL: Abdomen soft, non-tender, nondistended. No guarding. MUSCULOSKELETAL: There are 2+ bleeding edema bilaterally up to the thighs. No calf tenderness NEUROLOGICAL: Awake and alert. Cranial nerves II through XII intact. He is aware of self, location, and a year but has difficulty remembering the day or the month. Laboratory Labs done this morning is reviewed. Assessment and Plan Problem List: (1) Fluid overload ICD Code: E87.70 Status: Acute (2) Hypoxia ICD Code: R09.02 Status: Acute (3) Physical deconditioning ICD Code: R53.81 Status: Acute (4) History of squamous cell carcinoma ICD Code: Z85.89 Status: Chronic (5) History of atrial fibrillation ICD Code: Z86.79 Status: Acute (6) Neck malignant neoplasm ICD Code: C76.0 Status: Acute (7) Type 2 diabetes mellitus ICD Code: E11.9 Status: Chronic (8) COPD (chronic obstructive pulmonary disease) ICD Code: J44.9 Status: Acute (9) History of coronary artery disease ICD Code: Z86.79 (10) Hypothyroidism ICD Code: E03.9 Status: Chronic Assessment and Plan 66-year-old male with multiple comorbid conditions undergoing treatment for 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 The patient has been accumulating fluid in his bilateral lower extremities. Outside chest x-ray concerning for pulmonary edema. He did not response to oral Lasix. He was found to be hypoxemic in clinic. He is being admitted for further evaluation and treatment. Fluid overload, probable acute CHF, unknown type: Patient has been on high-dose steroid which may have contributed. He also has a recent history of myxedema coma. - He received 20 mg IV Lasix in the clinic, will give additional 20 mg now and scheduled him for 40 mg IV twice a day. - Strict I/O's - Supplemental oxygen as needed - Obtain 2-D echocardiogram. Obtain BNP. Repeat a chest x-ray today. - Consult the patient's plastic tile setter, Dr. Griffin for assistance. 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 - Consult patient's oncologist. - Patient has been on dexamethasone. Atrial fibrillation, CAD, hypertension: - Continue metoprolol, statin. Cardiology consulted as above. Chronic renal insufficiency: Appear to be stable. Cautious with diuretics. Monitor BMP. Jugular vein thrombosis: This was discovered about a week and half ago. The patient was started on Eliquis. Continue Eliquis. Hematology consulted as above. Hypothyroidism with recent myxedema coma about a month and half ago. Repeat TSH. Continue Synthroid COPD: Chronic.Continue home dose inhalers. Supplemental oxygen as needed. Type 2 diabetes: Hold oral hypoglycemic agent. Sliding scale insulin with Accu- Cheks. Atrial fibrillation: Continue metoprolol. Obtain EKG. GI prophylaxis: PPI. DVT PPx: On Eliquis. Discussed Condition With Dr. Urrutia and the patient's at bedside. Physician Certification 2 Midnight Certification Type: Admission for Inpatient Services Order for Inpatient Services The services are ordered in accordance with Medicare regulations or non- Medicare payer requirements, as applicable. In the case of services not specified as inpatient-only, they are appropriately provided as inpatient services in accordance with the 2-midnight benchmark. Estimated LOS (days): 3 days is the estimated time the patient will need to remain in the hospital, assuming treatment plan goals are met and no additional complications. Post-Hospital Plan: Not yet determined Aby Figueroa MD Oct 28, 2016 13:17
[2016-10-28] MEDS ORDERED: APIX5TAB PO (13:25)
[2016-10-28] MEDS: PANTOPRAZOLE SOD 20 MG DELAYED RELEASE TAB PO SCH (13:57)
[2016-10-28] MEDS ORDERED: DEXTROSE 50% IN WATER 50 ML VIAL(D50) IV PUSH PRN (14:45)
[2016-10-28] MEDS ORDERED: GLUCAGON 1 MG/ML VIAL OTHER PRN (14:45)
[2016-10-28 15:00] VITALS: PULSE 89
[2016-10-28 15:20] LABS: MAGNESIUM 1.3 MG/DL (1.5-2.5)
[2016-10-28 16:00] VITALS: BP 106/61; PULSE 96; RESP 20; TEMP 98.1; O2SAT 95
[2016-10-28] MEDS: MAGNESIUM SULFATE 1 GM PREMIX 100 ML IV SCH ×2 (16:26→17:27)
[2016-10-28] MEDS: INSULIN ASPART SUPPLEMENTAL SCALE SQ SCH ×2 (16:27→21:00)
--- NOTE | 2016-10-28 17:24 | RADRPT ---
EXAM DATE/TIME: 10/28/2016 16:58 [facility] COMPARISON: CHEST SINGLE AP, September 22, 2016, 13:19. INDICATIONS : Shortness of breath MEDICAL HISTORY : None. SURGICAL HISTORY : None. ENCOUNTER: Initial ACUITY: 1 day PAIN SCORE: 0/10 LOCATION: Bilateral chest FINDINGS: A single view of the chest demonstrates the lungs to be symmetrically aerated without evidence of mas s, infiltrate. Possible small left effusion. There is some pulmonary venous congestion. There is a ri ght-sided central line in place. There is no pneumothorax. The cardiomediastinal contours are stable . Osseous structures are intact. CONCLUSION: 1. Pulmonary venous congestion with possible small left effusion. Jw Sanchez MD on October 28, 2016 at 17:22 Board Certified Radiologist. This report was verified electronically.
[2016-10-28] MEDS: FUROSEMIDE 40 MG/4 ML VIAL IVP SCH (17:28)
--- NOTE | 2016-10-28 17:48 | MB ---
cc: ARIANNA HADLEY MD DATE OF CONSULTATION 10/28/16 HISTORY OF PRESENT ILLNESS Mr. Joiner is a 66 year old white male, patient of Dr. Griffin, with a history of metastatic squamous cell cancer, atrial fibrillation, coronary artery disease, hypertension, chronic renal insufficiency and diabetes mellitus. He has had a two week history of progressive lower extremity edema. He also has had congestion and difficulty breathing. He has not had any chest pain. His chest x-ray showed probable edema. He has been diuresed. He has had mild confusion. PAST MEDICAL HISTORY 1. 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 Urrutia. 2. History of atrial fibrillation 3. Coronary artery disease 4. Hypertension 5. Chronic renal insufficiency 6. Chronic obstructive pulmonary disease 7. Type 2 diabetes 8. Jugular vein thrombosis 9. Dyslipidemia 10. Hypothyroidism 11. History of PEG tube placement which has been removed. 12. Port placement 13. Esophagogastroduodenoscopy 14. Vasectomy MEDICATIONS At home, 1. Eliquis 2. Metoprolol 4. Fenofibrate 5. Nexium 6. Glipizide 7. Lexapro 8. Ambien 9. Gabapentin ALLERGIES CONTRAST SOCIAL HISTORY The patient does not smoke but used to smoke in the past. He drinks alcohol. FAMILY HISTORY Negative for coronary artery disease. His mother had heart failure. REVIEW OF SYSTEMS Otherwise negative. PHYSICAL EXAMINATION VITAL SIGNS: Blood pressure 115/60, pulse 99 and irregular. HEENT: Negative, 2+ carotid upstrokes, no bruits. LUNGS: Few bilateral crackles HEART: Irregularly irregular with no murmurs, rubs or gallops ABDOMEN: Soft, no bruits. EXTREMITIES: With 2 to 3+ pitting edema lower extremity, 1% distal pulses. NEUROLOGIC: Grossly nonfocal. CARDIOLOGY STUDIES Telemetry shows atrial fibrillation with controlled ventricular response. LABORATORY DATA Magnesium 1.3, electrolytes as so far pending. DIAGNOSES 1. Acute exacerbation of systolic congestive heart failure with fluid overload. 2. Cardiomyopathy with moderate left ventricular systolic dysfunction (EF 40%) 3. Chronic atrial fibrillation 4. Metastatic squamous cell carcinoma of the neck. 5. Chronic obstructive pulmonary disease 6. Diabetes mellitus 7. Coronary artery disease 8. Hypothyroidism 9. Chronic renal insufficiency DISPOSITION Mr. Joiner will be monitored on telemetry. He is in chronic atrial fibrillation which is reasonably well controlled. I recommend to continue anticoagulation with Eliquis and rate control with metoprolol. I recommend diuresis with IV Lasix closely monitoring his renal function. The patient is grossly fluid overloaded. We will schedule him for follow up with Dr. Griffin, his primary bond manager, in his office after discharge. MD NATE Velasquez/ /3:51 PM /5:21 PM MTDSabas
[2016-10-28] MEDS: oxyCODONE HCL ORAL CONC 20 MG/ML SYRINGE PO PRN (18:50)
--- NOTE | 2016-10-28 19:37 | MB ---
cc: SOHA FIGUEROA RUBY ANNE E. M.D. DATE OF CONSULTATION: 10/28/2016. REASON FOR CONSULTATION: Dr. Figueroa requested consultation for Mr. Joiner regarding metastatic head and neck cancer complicated by congestive heart failure. REFERRING PHYSICIAN: Dr. Soha Figueroa. HISTORY OF PRESENT ILLNESS: Mr. Joiner is a pleasant 66-year-old man with multiple medical problems. He has chronic atrial fibrillation, cataracts, diabetes type 2, gastroesophageal reflux, chronic renal insufficiency. He had been on long-term anticoagulant therapy for his atrial fibrillation with Eliquis. Eliquis was momentarily discontinued and he developed right upper extremity deep vein thromboses. He was replaced back on Eliquis promptly. The right arm swelling has diminished. Mr. Joiner is seen in the hematology/oncology clinic for metastatic head and neck cancer. He has had metastatic disease develop shortly after definitive concurrent chemotherapy and radiation. He has progressed to multiple lines of chemotherapy and to a checkpoint inhibitor. His course was complicated by significant hypothyroidism,. He is currently on cetuximab single-agent. He was recently evaluated at [facility] for participation in clinical trial phase I. The fire investigator decided he was not fit for the trial Martinez C4.4A antibody because Mr. Joiner's performance status has declined. He was in the oncology clinic the day of the admission and about to receive his next dose of cetuximab. He is receiving this for palliation which he seems to be tolerating well. He was found to be hypoxic with a saturation of 88%. He responded to oxygen 2 liters nasal cannula and his oxygen saturation went up to 96%. He has overt signs of fluid overload and heart failure. He has 2+ pitting edema of the lower extremities, crackles and decreased breath sounds at the bases. He is extremely fatigued. His diuresis was initiated by Dr. Bentley the day prior to his presentation in clinic; however, he has progressed despite the efforts to diuresis on an outpatient basis. With the above findings, Mr. Joiner was offered admission to the hospital which was coordinated with Dr. Figueroa. The case was discussed with Dr. Bentley. Mr. Joiner offers no complaints. His history is supplemented by his who is his main caregiver. He is dependent on her for activities of daily living. His pain is fairly well-controlled. He has had increased back pain recently. He continues on Decadron. Denies any headaches. His right arm swelling is actually diminished. He denies any overt bleeding. No melena or bright red blood per rectum. Denies any urinary complaints. He has difficulty in transferring. He denies any chest pain or shortness of breath. He has tolerated Synthroid well for his hypothyroidism. His appetite is quite poor. He is receiving palliative radiation to his back for symptomatic lesion. The rest of his review of systems is negative. PAST MEDICAL HISTORY: 1. Cintron's esophagitis. 2. Cataract. 3. Metastatic head and neck cancer. 4. P16 positivity. 5. COPD. 6. Hypothyroidism. 7. Atrial fibrillation. 8. Chronic renal insufficiency. 9. Diabetes type 2. 10. Chronic anemia. 11. Right upper extremity deep venous thrombosis. PAST SURGICAL HISTORY: 1. Lung biopsy. 2. Endoscopy. 3. Vasectomy. 4. Port placement. SOCIAL HISTORY: He denies any tobacco, alcohol or illicit drug use. He is and lives with his . FAMILY HISTORY: The father had mesothelioma. No other family history of cancer. PHYSICAL EXAMINATION: VITAL SIGNS: Temperature 98.1, heart rate 96, respiratory rate 20, blood pressure 106/61, saturation 95%. GENERAL: Mr. Joiner is a well-developed obese / heavyset man. He appears chronically tired. He is less lethargic than earlier this morning. He is confused at times. HEAD, EYES, EARS, NOSE, THROAT: His pupils are round and reactive to light and accommodation. Conjunctivae are pink. Oropharynx is dry. NECK: The neck is thickened. There are chronic radiation changes to the neck. LUNGS: Clear anteriorly. Diminished breath sounds at the bases. CARDIOVASCULAR: Irregularly irregular rhythm. Mildly tachycardic. ABDOMEN: Large and benign. LOWER EXTREMITIES: 2+ edema. There is asymmetry of the right arm more prominent than the left. Port appears to be in place. ALLERGIES: 1. IODINE. 2. CONTRAST MEDIA. CURRENT MEDICATIONS: 1. Decadron 1 milligram p.o. daily. 2. Lexapro 10 milligrams daily. 3. Claritin 10 milligrams daily. 4. Flomax 0.4 milligrams daily. 5. Spiriva 18 micrograms daily. 6. Synthroid 100 micrograms daily. 7. Potassium chloride 20 milliequivalents twice a day. 8. Toprol 25 milligrams twice a day. 9. Eliquis 5 milligrams p.o. twice a day. 10. Lasix 40 milligrams IV push twice a day. 11. Sliding scale coverage. 12. Oxycodone PRN. 13. Protonix 20 milligrams daily. 14. Senokot PRN. LABS: Labs are significant for: Mild anemia with hemoglobin of 8.9, MCV 103.9, platelet count 116,000. BUN of 41, creatinine 1.2, estimated glomerulofiltration rate 60%, glucose is 211, magnesium 1.3, sodium 132. Beta natriuretic peptide 310. TSH 14. Vitamin D decreased at 22. ASSESSMENT AND PLAN: Mr. Joiner is a 66-year-old man with multiple medical problems. He is seen in hematology/oncology clinic for metastatic head and neck cancer. He has been on cetuximab single agent for palliation. He seems to be tolerating it well. He was considered for participation in a clinical trial but felt to be of poor performance status to participate. Furthermore, the patient agrees that he is not up to participating in a phase I trial. We discussed his admission to the hospital for a congestive heart failure exacerbation. He has clinical signs of heart failure. He has been seen by cardiology. We will complement the evaluation by checking an echocardiogram. We are monitoring for any toxicity related to his current chemotherapy. He is only receiving cetuximab. He has been spared a rash. His Decadron taken for his back pain is likely to have helped him with the rash symptoms. We have discussed previously antidepressant medication. He is currently on Lexapro 10 mg once a day. We had previously discussed at buspirone. We will continue to monitor his symptoms of depression. His hypothyroidism is responding to the current dose of Synthroid. I recommend continuing his Eliquis. I am concerned about a failure or progression on new oral anticoagulant in light of his of metastatic cancer. He has a swollen lower extremity and I am unable to exclude a deep venous thrombosis. For this reason, ultrasound of the lower extremity will be obtained. Ultrasound of the upper extremity will be obtained. We will see that he is responding adequately to apixaban. Evaluation for pulmonary embolism was not performed as it was unlikely to change our management. Furthermore, embolization of upper extremity deep vein thromboses was not expected in light of the low flow state. With that however, repeat ultrasound will be to ensure that he is responding to appropriate treatment. I defer to the primary team for continued diuresis. His pain appears to be well controlled. We have ongoing discussion as to the risks and benefits of his cetuximab for his cancer treatment. Mr. Joiner has discussed his goals of therapy with palliative care in the past. He remains on Cetuximab to continue aggressive management. We may consider a re-consultation with Dr. Phelan during the course of his hospitalization, pending patient is agreeable with that. His clinical decline and congestive heart failure exacerbation is concerning for progression of disease while on cetuximab. The re-staging evaluation is deferred until he is discharged. Mr. Joiner's and his 's questions were answered to his satisfaction. MD TIFFANIE Briceno/ANGÉLICA /6:10 PM /7:07 PM [facility]
[2016-10-28 20:00] VITALS: BP 128/69; PULSE 87; PULSE 96; RESP 20; TEMP 97.1; O2SAT 92
[2016-10-28] MEDS: METOPROLOL SUCCINATE 25 MG EXTENDED RELEASE TAB PO SCH (21:00)
[2016-10-28] MEDS: APIXABAN 5 MG TABLET PO SCH (21:00)
[2016-10-28] MEDS ORDERED: POTASSIUM CHLORIDE 20 MEQ CONTROLLED RELEASE TAB PO SCH (21:00)
[2016-10-28] MEDS: SODIUM CHLORIDE 0.9% FLUSH 5 ML FLUSH IVF SCH (21:00)
[2016-10-28] MEDS: POTASSIUM CL 40 MEQ/30 ML LIQ UDC PO SCH (22:00)
[2016-10-29] VITALS (8 sets, daily range): BP systolic 99–123; BP diastolic 42–68; PULSE 87–103; RESP 18–20; TEMP 97.4–99.5; O2SAT 93–97
[2016-10-29] MEDS: oxyCODONE HCL ORAL CONC 20 MG/ML SYRINGE PO PRN ×3 (05:20→21:26)
[2016-10-29] MEDS ORDERED: LEVOTHYROXINE SODIUM 100 MCG TAB PO SCH (06:00)
[2016-10-29] MEDS: INSULIN ASPART SUPPLEMENTAL SCALE SQ SCH ×4 (07:00→21:26)
--- NOTE | 2016-10-29 07:36 | EKG ---
Date Performed: 10/28/2016 Time Performed: 21:48:30 PTAGE: 66 years EKG: ATRIAL FIBRILLATION NONSPECIFIC INTRAVENTRICULAR CONDUCTION DELAY ST/T-WAVE ABNORMALITY, CO NSIDER LATERAL ISCHEMIA ABNORMAL ECG PREVIOUS TRACING : 09/22/2016 12.22 Compared to previous tracing, PVCs or aberrantly conducted complexes are no longer evident. DOCTOR: Michael Falcon Interpretating Date/Time 10/29/2016 07:35:14
[2016-10-29 08:21] LABS: APTT (PATIENT) 33.7 SEC (24.3-30.1); INTERNATIONAL NORMALIZED RATIO 1.2 RATIO; PROTHROMBIN TIME - PATIENT 12.8 SEC (9.8-11.6)
[2016-10-29 08:49] LABS: BICARBONATE 32.6 MEQ/L (21.0-32.0); MAGNESIUM 1.7 MG/DL (1.5-2.5)
[2016-10-29] MEDS: ESCITALOPRAM OXALATE 10 MG TAB PO SCH (09:58)
[2016-10-29] MEDS: DEXAMETHASONE 0.5 MG TAB PO SCH (09:58)
[2016-10-29] MEDS: PANTOPRAZOLE SOD 20 MG DELAYED RELEASE TAB PO SCH (09:59)
[2016-10-29] MEDS: TAMSULOSIN HCL 0.4 MG CAP PO SCH (09:59)
[2016-10-29] MEDS: LORATADINE 10 MG TAB PO SCH (09:59)
[2016-10-29] MEDS: METOPROLOL SUCCINATE 25 MG EXTENDED RELEASE TAB PO SCH ×2 (09:59→21:25)
[2016-10-29] MEDS: FUROSEMIDE 40 MG/4 ML VIAL IVP SCH ×2 (09:59→18:53)
[2016-10-29] MEDS: APIXABAN 5 MG TABLET PO SCH (10:00)
[2016-10-29] MEDS ORDERED: INFLUENZA VIRUS VACCINE (QUADRIVALENT) 0.5 ML SYR IM ONE (10:00)
[2016-10-29] MEDS: POTASSIUM CL 40 MEQ/30 ML LIQ UDC PO SCH ×2 (10:01→21:25)
[2016-10-29] MEDS: TIOTROPIUM BROMIDE 18 MCG INH INH SCH (10:16)
--- NOTE | 2016-10-29 10:19 | RADRPT ---
EXAM DATE/TIME: 10/28/2016 22:13 [facility] COMPARISON: No previous studies available for comparison. EXTERNAL COMPARISON : [facility], US LEG, LEFT VENOUS DOPPLER, October 26, 2015 INDICATIONS : Bilateral leg swelling. MEDICAL HISTORY : Myocardial infarction. Hypertension. Chronic obstructive pulmonary disease. Head and neck carcinoma. GERD. Cintron's esophagus. afib. confusion. cad. anemia. dyspnea. renal insufficiency. diabetes. depr ession. anxiety. anticoagulant therapy, eliquis. SURGICAL HISTORY : Angioplasty. Cardiac cath. Port insertion. PED tube insertion and removal. Blood transfusions. Chemot herapy. Radiation therapy. ENCOUNTER: Initial ACUITY: 2 day PAIN SCORE: 5/10 LOCATION: Bilateral leg. TECHNIQUE: Venous ultrasound of the left and right leg was performed from the inguinal ligament to the proximal calf. Real-time, color Doppler and spectral tracing, compression and augmentation techniques were us ed. FINDINGS: RIGHT LEG: There is normal compressibility of the deep venous system from the inguinal region to the proximal ca lf. No echogenic clot is seen in the lumen of the common femoral, femoral, popliteal, and posterior tibial veins. There is a normal response of the venous system to proximal and distal augmentation an d respiration. LEFT LEG: There is normal compressibility of the deep venous system from the inguinal region to the proximal ca lf. No echogenic clot is seen in the lumen of the common femoral, femoral, popliteal, and posterior tibial veins. There is a normal response of the venous system to proximal and distal augmentation an d respiration. CONCLUSION: No evidence of lower extremity DVT on the right or left. Vamsi Norman MD on October 29, 2016 at 10:16 Board Certified Radiologist. This report was verified electronically.
--- NOTE | 2016-10-29 10:22 | RADRPT ---
EXAM DATE/TIME: 10/29/2016 08:42 This report includes an Addendum and supersedes previous reports for this exam. [facility] COMPARISON: No previous studies available for comparison. EXTERNAL COMPARISON : [facility], US ARM, RIGHT VENOUS DOPPLER, October 17, 2016 INDICATIONS : Right arm swelling. MEDICAL HISTORY : Myocardial infarction. Hypertension. Chronic obstructive pulmonary disease. Head and neck carcinoma. GERD. Cintron's esophagus. afib. confusion. cad. anemia. dyspnea. renal insufficiency. diabetes. depr ession. anxiety. anticoagulant therapy, eliquis. SURGICAL HISTORY : Angioplasty. Cardiac cath. Port insertion. PED tube insertion and removal. Blood transfusions. Bee motherapy. Radiation therapy. ENCOUNTER: Initial ACUITY: 2 weeks PAIN SCORE: 5/10 LOCATION: Right arm. FINDINGS: Lack of color Doppler flow in the distal internal jugular vein and subclavian vein identified. Normal flow and compression identified in the axillary, cephalic, basilic, and brachial veins. CONCLUSION: Occlusive deep vein thrombosis of the right internal jugular vein and subclavian vein. Vamsi Norman MD on October 29, 2016 at 10:17 Board Certified Radiologist. This report was verified electronically. ADDENDUM: No significant interval change from prior study a [facility] of 10/17/2016. Vamsi Norman MD on October 29, 2016 at 10:35 Board Certified Radiologist. This report was verified electronically.
[2016-10-29 10:56] LABS: HEMATOCRIT 23.2 % (39.0-51.0); MEAN CELL VOLUME 103.1 FL (80.0-100.0); MEAN CORPUSCULAR HEMOGLOBIN 35.6 PG (27.0-34.0); MEAN CORPUSCULAR HGB CONC 34.5 % (32.0-36.0); RED BLOOD COUNT 2.25 MIL/MM3 (4.50-5.90); RED CELL DISTRIBUTION WIDTH 21.9 % (11.6-17.2); WHITE BLOOD COUNT 7.6 TH/MM3 (4.0-11.0)
--- NOTE | 2016-10-29 11:02 | HHI.PR ---
Subjective Remarks Patient is somnolent this morning. Breathing is stable on 2L NC. DW with daughter Dr. Scherer. We discussed increasing Synthroid to 112 mg as he previously seem to do better on that dose. Objective Vitals Vital Signs Date Time Temp Pulse Resp B/P Pulse Ox O2 Delivery O2 Flow Rate FiO2 10/29/16 08:00 98.9 99 20 122/68 95 10/29/16 04:00 97.4 103 20 106/51 94 10/29/16 00:00 99.5 103 20 123/42 95 10/28/16 20:55 Nasal Cannula 2.00 10/28/16 20:00 97.1 87 20 128/69 92 10/28/16 20:00 96 10/28/16 16:00 98.1 96 20 106/61 95 10/28/16 15:00 89 10/28/16 12:30 96.9 99 20 115/60 97 I/O 10/28/16 10/28/16 10/28/16 10/29/16 10/29/16 10/29/16 07:00 15:00 23:00 07:00 15:00 23:00 Intake Total 480 ml 360 ml 110 ml Output Total 600 ml 400 ml Balance 480 ml -240 ml -290 ml Intake Oral 480 ml 360 ml 110 ml Output Urine Total 600 ml 400 ml # Voids 0 1 # Bowel Movements 0 0 Result Diagram: 10/29/16 0625 Imaging Last Impressions Lower Extremity Ultrasound 10/29/16 0000 Signed Impressions: Service Date/Time: Friday, October 28, 2016 22:13 - CONCLUSION: No evidence of lower extremity DVT on the right or left. Vamsi Norman MD Chest X-Ray 10/28/16 0000 Signed Impressions: Service Date/Time: Friday, October 28, 2016 16:58 - CONCLUSION: 1. Pulmonary venous congestion with possible small left effusion. Jw Sanchez MD Objective Remarks GENERAL: Obese male in no acute distress. Somnolent but easily wake up. HEAD: Atraumatic. Normocephalic. No temporal or scalp tenderness. EYES: Pupils equal round and reactive. Extraocular motions intact. No scleral icterus. No injection or drainage. ENT: Nose without drainage Uvula midline. Airway patent. NECK: Trachea midline. Some swelling on the right side of the neck. CARDIOVASCULAR: Normal rate and irregular rhythm without murmurs, gallops, or rubs. RESPIRATORY: Respiratory effort is fair. There are faint crackles at the bases bilaterally. No wheezing. MUSCULOSKELETAL: There are 2+ pitting edema bilaterally up to the thighs. No calf tenderness NEUROLOGICAL: Awake and alert. He is somnolent with periods of confusion but can hold a simple conversation. A/P Problem List: (1) Fluid overload ICD Code: E87.70 Status: Acute (2) Hypoxia ICD Code: R09.02 Status: Acute (3) Physical deconditioning ICD Code: R53.81 Status: Acute (4) History of squamous cell carcinoma ICD Code: Z85.89 Status: Chronic (5) History of atrial fibrillation ICD Code: Z86.79 Status: Acute (6) Neck malignant neoplasm ICD Code: C76.0 Status: Acute (7) Type 2 diabetes mellitus ICD Code: E11.9 Status: Chronic (8) COPD (chronic obstructive pulmonary disease) ICD Code: J44.9 Status: Acute (9) History of coronary artery disease ICD Code: Z86.79 (10) Hypothyroidism ICD Code: E03.9 Status: Chronic Assessment and Plan 66-year-old male with multiple comorbid conditions undergoing treatment for 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 The patient has been accumulating fluid in his bilateral lower extremities. Outside chest x-ray concerning for pulmonary edema. He did not response to oral Lasix. He was found to be hypoxemic in clinic. He was admitted for further evaluation and treatment. Fluid overload, probable acute CHF, unknown type: Patient has been on steroid which is helping cancer related pain. He also has a recent history of myxedema coma. - Appreciate Cardiology following. He is improving with Lasix 40 mg IV BID. - Supplemental oxygen as needed - 2-D echocardiogram pending. - LE US negative. 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 Experiencing significant back pain. - Dr. Urrutia following. Concern for progression. DW daughter at bedside and offered consultation to palliative care. Family will discuss further. - Patient has been on Cetuximab. On dexamethasone and Oxycodone. Atrial fibrillation, CAD, hypertension: - Continue metoprolol, statin. Cardiology following. Chronic renal insufficiency: Appear to be stable. Cautious with diuretics. Monitor BMP. Jugular vein thrombosis: This was discovered about a week and half ago. The patient was started on Eliquis. DW radiologist who compared the repeat US. It is the same compared to the the study on Fed 13. Continue Eliquis. Hematology following as above. Hypothyroidism with recent myxedema coma about a month and half ago. He is responding to Synthroid. Per discussion with his daugther, Dr. Scherer, he did better on 112 mg. Will put him back on 112 mg. His TSH is still 14 but this is much improved. COPD: Chronic.Continue home dose inhalers. Supplemental oxygen as needed. Type 2 diabetes: Hold oral hypoglycemic agent. Sliding scale insulin with Accu- Cheks. Atrial fibrillation: Continue metoprolol. On Eliquis Sacral pressure ulcer: Present on admission. Patient is sedentary at home. - Frequent turning. Dressing per nursing. GI prophylaxis: PPI. DVT PPx: On Eliquis. Aby Figueroa MD Oct 29, 2016 11:01
[2016-10-29 11:40] LABS: REVIEW FLAG FINAL
[2016-10-29 12:12] LABS: FREE T3 0.86 PG/ML (2.18-3.98); FREE T4 1.16 NG/DL (0.76-1.46)
[2016-10-29] MEDS ORDERED: SOD PHOSPHATE/SOD BIPHOSPHATE (ADULT) ENEMA 133ML PR PRN (13:45)
--- NOTE | 2016-10-29 14:03 | PD.ONC.PN ---
Subjective Subjective Remarks Afebrile overnight. Pt lying in bed in no distress. at bedside. He states he has had some constipation. He reports that the swelling in his legs have gone down but he still has some SOB. Objective Data Date Time Temp Pulse Resp B/P Pulse Ox O2 Delivery O2 Flow Rate FiO2 10/29/16 12:00 98.1 95 18 118/68 97 10/29/16 09:05 94 Nasal Cannula 2.00 10/29/16 08:00 98.9 99 20 122/68 95 10/29/16 04:00 97.4 103 20 106/51 94 10/29/16 00:00 99.5 103 20 123/42 95 10/28/16 20:55 Nasal Cannula 2.00 10/28/16 20:00 97.1 87 20 128/69 92 10/28/16 20:00 96 10/28/16 16:00 98.1 96 20 106/61 95 10/28/16 15:00 89 Result Diagram: 10/29/16 1030 10/29/16 0625 Laboratory Results Laboratory Tests Test 10/28/16 10/29/16 10/29/16 10/29/16 13:46 06:25 06:30 10:30 Magnesium Level 1.3 MG/DL 1.7 MG/DL B-Type Natriuretic Peptide 310 PG/ML Thyroid Stimulating Hormone 14.300 uIU/ML 3rd Gen Sodium Level 135 MEQ/L Potassium Level 4.0 MEQ/L Chloride Level 93 MEQ/L Carbon Dioxide Level 32.6 MEQ/L Anion Gap 9 MEQ/L Blood Urea Nitrogen 38 MG/DL Creatinine 1.25 MG/DL Estimat Glomerular Filtration 58 ML/MIN Rate Random Glucose 150 MG/DL Calcium Level 8.0 MG/DL Free Thyroxine 1.16 NG/DL Free Triiodothyronine (T3) 0.86 PG/ML pg/dL Prothrombin Time 12.8 SEC Prothromb Time International 1.2 RATIO Ratio Activated Partial 33.7 SEC Thromboplast Time White Blood Count 7.6 TH/MM3 Red Blood Count 2.25 MIL/MM3 Hemoglobin 8.0 GM/DL Hematocrit 23.2 % Mean Corpuscular Volume 103.1 FL Mean Corpuscular Hemoglobin 35.6 PG Mean Corpuscular Hemoglobin 34.5 % Concent Red Cell Distribution Width 21.9 % Platelet Count TH/MM3 Mean Platelet Volume 8.5 FL Imaging Studies Last 24 hours Impressions Upper Extremity Ultrasound 10/29/16 0000 Signed Impressions: Service Date/Time: Saturday, October 29, 2016 08:42 - CONCLUSION: Occlusive deep vein thrombosis of the right internal jugular vein and subclavian vein. Vamsi Norman MD ADDENDUM: No significant interval change from prior study a [facility] of 10/17/2016. Vamsi Norman MD Lower Extremity Ultrasound 10/29/16 0000 Signed Impressions: Service Date/Time: Friday, October 28, 2016 22:13 - CONCLUSION: No evidence of lower extremity DVT on the right or left. Vamsi Norman MD Administered Medications Medications (Trade) Dose Ordered Sig/Jacqueline Route PRN Reason Start Time Stop Time Status Last Admin Dose Admin IV Flush (NS Flush) 2 ml BID IVF 10/28/16 21:00 10/28/16 21:00 IV Flush (NS Flush) 2 ml UNSCH PRN IVF FLUSH AFTER USING IV ACCESS 10/28/16 13:00 10/28/16 13:54 Furosemide (Lasix Inj) 40 mg BID@,18 IVP 10/28/16 18:00 10/29/16 09:59 Dexamethasone (Decadron) 1 mg DAILY PO 10/29/16 09:00 10/29/16 09:58 Escitalopram Oxalate (Lexapro) 10 mg DAILY PO 10/29/16 09:00 10/29/16 09:58 Loratadine (Claritin) 10 mg DAILY PO 10/29/16 09:00 10/29/16 09:59 Metoprolol Succinate (Toprol Xl) 25 mg BID PO 10/28/16 21:00 10/29/16 09:59 Oxycodone HCl (Roxicodone Intensol Liq) 5 mg Q4H PRN PO PAIN 1-10 10/28/16 13:15 10/29/16 12:46 Tamsulosin HCl (Flomax) 0.4 mg DAILY PO 10/29/16 09:00 10/29/16 09:59 Tiotropium [place] (Spiriva Inh) 18 mcg DAILY INH 10/29/16 09:00 10/29/16 10:16 Pantoprazole Sodium (Protonix) 20 mg DAILY PO 10/28/16 13:15 10/29/16 09:59 Sennosides (Senokot) 17.2 mg BID PRN PO CONSTIPATION 10/28/16 13:15 10/29/16 12:52 Apixaban (Eliquis) 5 mg BID PO 10/28/16 21:00 10/29/16 10:00 Potassium Chloride (KCl 40 Meq/30 ml Liq) 20 meq BID PO 10/28/16 22:00 10/29/16 10:01 Objective Remarks GENERAL: Chronically ill-appearing older male in no distress. SKIN: Warm and dry. Oozing noted to port in right chest. Telangiectasia to right chest/neck. HEAD: Normocephalic. EYES: No scleral icterus. NECK: Supple, trachea midline. CARDIOVASCULAR: Regular rate and rhythm without murmurs. RESPIRATORY: Rhonchi throughout. GASTROINTESTINAL: Abdomen soft, non-tender, nondistended. EXTREMITIES: Generalized edema to BLE. Per this is improved from yesterday. NEUROLOGICAL: Lethargic but easily arousable. Normal speech. Moving all extremities. Assessment/Plan Problem List: (1) History of squamous cell carcinoma Status: Chronic Plan: -- Treated as an outpatient with single agent palliative intent cetuximab. (2) Fluid overload Status: Acute Plan: -- On lasix -- Improving (3) Constipation Status: Acute Plan: -- Will order lactulose prn (4) Thrombosis Status: Acute Plan: -- RUE DVT of the R IJ and SC vein. -- Per radiologist this is unchanged from prior study. -- Currently on Eliquis; will hold for now d/t oozing at port site. Assessment 66 y/o male with a history of head and neck cancer admitted with SOB and fluid overload. Plan 1. Hold Eliquis for now d/t oozing at port site. 2. Lactulose x 3 doses for constipation. 3. Followup after discharge to continue palliative intent cetuximab. 4. Supportive care. Attending Statement The exam, history, and the medical decision-making described in the above note were completed with the assistance of the mid-level provider. I reviewed and agree with the findings presented. I attest that I had a [id number] encounter with the patient on the same day, and personally performed and documented my assessment and findings in the medical record. Less leg swelling, Finding as expected, no LE DVt, RUE DVt no change. Noted oozing at port site and reported blood with straining for stool. Lactulose started. Hold Eliquis. Change port dressing. Discussed w/ primary team, diuresis effective. Clinically pt still very poor KPS, no significant improvement. Tona Kumar Oct 29, 2016 14:03 Cayla Urrutia MD Oct 29, 2016 17:03
[2016-10-29] MEDS: LACTULOSE SYRUP 20 GM/30 ML CUP PO SCH ×2 (15:58→21:25)
[2016-10-29] MEDS: SODIUM CHLORIDE 0.9% FLUSH 5 ML FLUSH IVF SCH (21:25)
[2016-10-30] VITALS (7 sets, daily range): BP systolic 93–112; BP diastolic 51–56; PULSE 80–107; RESP 17–20; TEMP 97.2–98.1; O2SAT 93–97
[2016-10-30] MEDS: LACTULOSE SYRUP 20 GM/30 ML CUP PO SCH ×2 (06:00→06:32)
[2016-10-30] MEDS: LEVOTHYROXINE SODIUM 112 MCG TAB PO SCH ×3 (06:00→08:46)
[2016-10-30 06:16] LABS: MEAN CELL VOLUME 103.1 FL (80.0-100.0); MEAN CORPUSCULAR HEMOGLOBIN 36.5 PG (27.0-34.0); MEAN CORPUSCULAR HGB CONC 35.4 % (32.0-36.0); PLATELET COUNT 96 TH/MM3 (150-450); RED BLOOD COUNT 2.23 MIL/MM3 (4.50-5.90); RED CELL DISTRIBUTION WIDTH 21.4 % (11.6-17.2); WHITE BLOOD COUNT 6.7 TH/MM3 (4.0-11.0)
[2016-10-30 06:18] LABS: REVIEW FLAG FINAL
[2016-10-30 06:37] LABS: BICARBONATE 32.6 MEQ/L (21.0-32.0); POTASSIUM 3.9 MEQ/L (3.5-5.1)
[2016-10-30] MEDS: INSULIN ASPART SUPPLEMENTAL SCALE SQ SCH ×4 (07:00→23:53)
[2016-10-30] MEDS: ESCITALOPRAM OXALATE 10 MG TAB PO SCH (08:46)
[2016-10-30] MEDS: DEXAMETHASONE 0.5 MG TAB PO SCH (08:47)
[2016-10-30] MEDS: PANTOPRAZOLE SOD 20 MG DELAYED RELEASE TAB PO SCH (08:50)
[2016-10-30] MEDS: LORATADINE 10 MG TAB PO SCH (08:50)
[2016-10-30] MEDS: TAMSULOSIN HCL 0.4 MG CAP PO SCH (08:51)
[2016-10-30] MEDS: POTASSIUM CL 40 MEQ/30 ML LIQ UDC PO SCH ×2 (08:51→23:47)
[2016-10-30] MEDS: FUROSEMIDE 40 MG/4 ML VIAL IVP SCH (08:53)
[2016-10-30] MEDS: TIOTROPIUM BROMIDE 18 MCG INH INH SCH (08:57)
[2016-10-30] MEDS: METOPROLOL SUCCINATE 25 MG EXTENDED RELEASE TAB PO SCH ×2 (09:00→23:47)
--- NOTE | 2016-10-30 09:11 | EC ---
Study Study Date:10/29/2016 STUDY CONCLUSIONS SUMMARY - Procedure narrative: Transthoracic echocardiography. Image quality was suboptimal. Scanning was performed from the parasternal, apical, and subcostal acoustic windows. - Left ventricle: The cavity size was at the upper limits of normal. Wall thickness was normal. Systolic function was moderately to severely reduced. The estimated ejection fraction was in the range of 30% to 35%. Wall motion assessment is suboptimal. There is suggestion of severe hypokinesis of the anterior wall, apex, mid to distal septum and distal lateral wall. - Aortic valve: Mild to moderate leaflet sclerosis; difficult to determine leaflet number, probably trileaflet. - Mitral valve: Trace regurgitation. - Tricuspid valve: Trace regurgitation. - Pulmonary arteries: PA peak pressure: 41mm Hg (S). If LV function is below 40, please consider prescribing an ACEI or ARB or document rationale for non-use. PROCEDURE DATA STUDY STATUS: Elective. Procedure: Transthoracic echocardiography. Image quality was suboptimal. Scanning was performed from the parasternal, apical, and subcostal acoustic windows. Study completion: The patient tolerated the procedure well. Transthoracic echocardiography. M-mode, complete 2D, complete spectral Doppler, and color Doppler. Height: Height: 72in. Weight: Weight: 187.6lb. Body mass index: BMI: 25.5kg/m^2. Body surface area: BSA: 2.08m^2. Patient status: Inpatient. CARDIAC ANATOMY LEFT VENTRICLE: The cavity size was at the upper limits of normal. Wall thickness was normal. Systolic function was moderately to severely reduced. The estimated ejection fraction was in the range of 30% to 35%. Wall motion assessment is suboptimal. There is suggestion of severe hypokinesis of the anterior wall, apex, mid to distal septum and distal lateral wall. AORTIC VALVE: Mild to moderate leaflet sclerosis; difficult to determine leaflet number, probably trileaflet. Doppler: Transvalvular velocity was within the normal range. There was no stenosis. No regurgitation. Valve area: 1.62cm^2(VTI). Indexed valve area: 0.78cm^2/m^2 (VTI). Valve area: 1.56cm^2 (Vmax). Indexed valve area: 0.75cm^2/m^2 (Vmax). Mean gradient: 3mm Hg (S). AORTA: Aortic root: The aortic root was normal in size. MITRAL VALVE: Structurally normal valve. Doppler: Transvalvular velocity was within the normal range. There was no evidence for stenosis. Trace regurgitation. Peak gradient: 3mm Hg (D). LEFT ATRIUM: The atrium was normal in size. RIGHT VENTRICLE: The cavity size was normal. Wall thickness was normal. PULMONIC VALVE: Doppler: Transvalvular velocity was within the normal range. There was no evidence for stenosis. No regurgitation. TRICUSPID VALVE: Structurally normal valve. Doppler: Transvalvular velocity was within the normal range. Trace regurgitation. PULMONARY ARTERY: The main pulmonary artery was normal-sized. Systolic pressure was within the normal range. RIGHT ATRIUM: The atrium was normal in size. PERICARDIUM: There was no pericardial effusion. SYSTEMIC VEINS: Inferior vena cava: The vessel was normal in size. Patient weight: 187.6lb _Ejection fraction:_ 65-75% _Fractional shortening:_ 32% up to 5Kg 5-11.5Kg 11.6-22.9Kg 23-45Kg 45-57Kg Aortic Root 7-13 <17 13-22 17-27 17-27 LA diam 6-13 <23 24-38 33-47 37-40 RVID 10-17 7-15 7-15 7-18 8-17 LVIDd 12-22 <32 24-38 33-47 37-40 LVPW 2-4 3-6 5-7 6-8 7-8 IVS 2-4 3-6 5-7 6-8 7-8 BASIC MEASUREMENTS ADULT NORMAL Left ventricle LV internal dimension, ED, chordal *57.7 mm 43-52 level, PLAX LV internal dimension, ES, chordal *50.8 mm 23-38 level, PLAX Fractional shortening, chordal level, *12 % >29 PLAX LV posterior wall thickness, ED 10.6 mm IVS/LVPW ratio, ED 0.98 <1.3 Ventricular septum Septal thickness, ED 10.4 mm Aortic valve Leaflet separation 17 mm 15-26 Aorta Root diameter, ED 34 mm Left atrium Anterior-posterior dimension 45 mm Anterior-posterior dimension index 2.16 cm/m^2 <2.2 BASIC MEASUREMENTS ADULT NORMAL Aortic valve Leaflet separation 17 mm 15-26 DOPPLER MEASUREMENTS ADULT NORMAL Main pulmonary artery Pressure, S *41 mm Hg =30 Aortic valve Peak velocity, S 116 cm/s Mean velocity, S 74.8 cm/s VTI, S 18.2 cm Mean gradient, S 3 mm Hg Valve area, VTI 1.62 cm^2 Valve area index, VTI 0.78 cm^2/m^2 Valve area, Vmax 1.56 cm^2 Valve area index, Vmax 0.75 cm^2/m^2 Mitral valve Peak E-wave velocity 89 cm/s Peak gradient, D 3 mm Hg Tricuspid valve Regurgitant peak velocity 280 cm/s Peak RV-RA gradient, S 31 mm Hg Maximal regurgitant velocity 280 cm/s Systemic veins Estimated CVP 10 mm Hg Right ventricle RV pressure, S *41 mm Hg <30 Pulmonic valve Peak velocity, S 31.6 cm/s LEGEND: Mean values are shown as u=mean value. Asterisk (*) shell values outside specified normal range. Prepared and signed by Michael Falcon [id number]
--- NOTE | 2016-10-30 13:00 | PD.ONC.PN ---
Subjective Subjective Remarks Afebrile overnight. at bedside. He is complaining that he can't get comfortable in the bed. Per RN he had had no obvious bleeding. He did have multiple bowel movements yesterday. Objective Data Date Time Temp Pulse Resp B/P Pulse Ox O2 Delivery O2 Flow Rate FiO2 10/30/16 12:00 98.1 90 18 98/54 97 10/30/16 09:06 Nasal Cannula 4.00 10/30/16 08:00 97.9 91 18 93/51 96 10/30/16 04:00 97.2 91 18 95/51 93 10/30/16 00:00 97.2 87 18 112/54 94 10/29/16 22:00 Room Air 10/29/16 20:00 97.6 98 18 116/55 93 10/29/16 16:00 97.8 87 20 99/57 96 Result Diagram: 10/30/16 0555 10/30/16 0555 Laboratory Results Laboratory Tests Test 10/30/16 05:55 White Blood Count 6.7 TH/MM3 Red Blood Count 2.23 MIL/MM3 Hemoglobin 8.1 GM/DL Hematocrit 23.0 % Mean Corpuscular Volume 103.1 FL Mean Corpuscular Hemoglobin 36.5 PG Mean Corpuscular Hemoglobin 35.4 % Concent Red Cell Distribution Width 21.4 % Platelet Count 96 TH/MM3 Mean Platelet Volume 8.9 FL Sodium Level 136 MEQ/L Potassium Level 3.9 MEQ/L Chloride Level 95 MEQ/L Carbon Dioxide Level 32.6 MEQ/L Anion Gap 8 MEQ/L Blood Urea Nitrogen 38 MG/DL Creatinine 1.26 MG/DL Estimat Glomerular Filtration 57 ML/MIN Rate Random Glucose 122 MG/DL Calcium Level 8.3 MG/DL Administered Medications Medications (Trade) Dose Ordered Sig/Jacqueline Route PRN Reason Start Time Stop Time Status Last Admin Dose Admin IV Flush (NS Flush) 2 ml BID IVF 10/28/16 21:00 10/29/16 21:25 IV Flush (NS Flush) 2 ml UNSCH PRN IVF FLUSH AFTER USING IV ACCESS 10/28/16 13:00 10/28/16 13:54 Furosemide (Lasix Inj) 40 mg BID@09,18 IVP 10/28/16 18:00 10/30/16 08:53 Dexamethasone (Decadron) 1 mg DAILY PO 10/29/16 09:00 10/30/16 08:47 Escitalopram Oxalate (Lexapro) 10 mg DAILY PO 10/29/16 09:00 10/30/16 08:46 Loratadine (Claritin) 10 mg DAILY PO 10/29/16 09:00 10/30/16 08:50 Metoprolol Succinate (Toprol Xl) 25 mg BID PO 10/28/16 21:00 10/29/16 21:25 Oxycodone HCl (Roxicodone Intensol Liq) 5 mg Q4H PRN PO PAIN 1-10 10/28/16 13:15 10/29/16 21:26 Tamsulosin HCl (Flomax) 0.4 mg DAILY PO 10/29/16 09:00 10/30/16 08:51 Tiotropium [place] (Spiriva Inh) 18 mcg DAILY INH 10/29/16 09:00 10/30/16 08:57 Pantoprazole Sodium (Protonix) 20 mg DAILY PO 10/28/16 13:15 10/30/16 08:50 Sennosides (Senokot) 17.2 mg BID PRN PO CONSTIPATION 10/28/16 13:15 10/29/16 12:52 Apixaban (Eliquis) 5 mg BID PO 10/28/16 21:00 Hold 10/29/16 10:00 Potassium Chloride (KCl 40 Meq/30 ml Liq) 20 meq BID PO 10/28/16 22:00 10/30/16 08:51 Levothyroxine Sodium (Synthroid) 112 mcg DAILY@06 PO 10/30/16 06:00 10/30/16 08:46 Sodium Biphosphate/ Sodium Phosphate (Fleets Enema (Adult)) 133 ml UNSCH PRN [place] CONSTIPATION 10/29/16 13:45 10/29/16 15:58 Objective Remarks GENERAL: Chronically ill-appearing older male in no distress. SKIN: Warm and dry. Oozing still noted to port in right chest. Telangiectasia to right chest/neck. HEAD: Normocephalic. EYES: No scleral icterus. NECK: Supple, trachea midline. CARDIOVASCULAR: Regular rate and rhythm without murmurs. RESPIRATORY: Rhonchi throughout. GASTROINTESTINAL: Abdomen soft, non-tender, nondistended. EXTREMITIES: No edema. NEUROLOGICAL: Normal speech. Moving all extremities. Assessment/Plan Problem List: (1) History of squamous cell carcinoma Status: Chronic Plan: -- Treated as an outpatient with single agent palliative intent cetuximab. (2) Fluid overload Status: Acute Plan: -- On lasix -- Improving (3) Constipation Status: Resolved Plan: -- Has Fleets enema prn (4) Thrombosis Status: Acute Plan: -- RUE DVT of the R IJ and SC vein. -- Per radiologist this is unchanged from prior study. -- Currently on Eliquis; will hold for now d/t oozing at port site. Assessment 66 y/o male with a history of head and neck cancer admitted with SOB and fluid overload. Plan 1. Continue to hold Eliquis with oozing at port site. Will monitor platelets and hgb. 2. Lactulose was successful yesterday. Per RN no bleeding. 3. Once current issues are resolved he can followup in clinic for next dose of cetuximab. 4. Supportive care. Attending Statement The exam, history, and the medical decision-making described in the above note were completed with the assistance of the mid-level provider. I reviewed and agree with the findings presented. I attest that I had a [id number] encounter with the patient on the same day, and personally performed and documented my assessment and findings in the medical record. Pt seen and examined, spends most of time in bed, still feels weak despite improvement from CHF exacerbation. 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 Appreciate cardiology consult to adjust diuresis and BP meds, noted hypotension. Discussed his poor performance status, some confusion and concern for progression of his head and neck cancer. Pt in his mind, during periods of clarity, pt wishes to continue palliative treatment with Erbitux. It will depend if his performance status good enough for him to come to clinic for treatment. Hospice appropriate but not consistent with patient's wishes at present. Case management consult to assist with renting Lift Chair. Consult PT to evaluate pt's safety in transferring and use of Lift Chair. Discharge planning, pt would like to continue recovery at home. CAROL marie/ Dr. Griffin and Oncology clinic as out patient. Tona Kumar Oct 30, 2016 13:00 Cayla Urrutia MD Oct 30, 2016 15:47
--- NOTE | 2016-10-30 13:40 | HHI.PR ---
Subjective Remarks Patient reports that he is feeling okay today. Still very fatigued. Discussed with his at bedside. We had an extensive discussion about his echocardiogram report. His EF is 30-35% which is a decreased from what was previously reported. They are agreeable to reconsult palliative care. The patient himself is very sleepy and not willing to participate in the current conversation. Lower extremity swelling much improved. BP borderline low. Objective Vitals Vital Signs Date Time Temp Pulse Resp B/P Pulse Ox O2 Delivery O2 Flow Rate FiO2 10/30/16 12:00 98.1 90 18 98/54 97 10/30/16 09:06 Nasal Cannula 4.00 10/30/16 08:00 97.9 91 18 93/51 96 10/30/16 07:00 Nasal Cannula 2.00 10/30/16 04:00 97.2 91 18 95/51 93 10/30/16 00:00 97.2 87 18 112/54 94 10/29/16 22:00 Room Air 10/29/16 20:00 97.6 98 18 116/55 93 10/29/16 16:00 97.8 87 20 99/57 96 I/O 10/29/16 10/29/16 10/29/16 10/30/16 10/30/16 10/30/16 07:00 15:00 23:00 07:00 15:00 23:00 Intake Total 110 ml 360 ml 360 ml Output Total 400 ml 750 ml Balance -290 ml -390 ml 360 ml Intake Oral 110 ml 360 ml 360 ml Output Urine Total 400 ml 750 ml # Voids 1 4 # Bowel Movements 0 1 3 Result Diagram: 10/30/16 0555 10/30/16 0555 Objective Remarks GENERAL: Obese male in no acute distress. Somnolent but easily wake up. HEAD: Atraumatic. Normocephalic. No temporal or scalp tenderness. EYES: Pupils equal round and reactive. Extraocular motions intact. No scleral icterus. No injection or drainage. ENT: Nose without drainage Uvula midline. Airway patent. NECK: Trachea midline. Some swelling on the right side of the neck. CARDIOVASCULAR: Normal rate and irregular rhythm without murmurs, gallops, or rubs. RESPIRATORY: Respiratory effort is fair. There are faint crackles at the bases bilaterally. No wheezing. MUSCULOSKELETAL: There are 2+ pitting edema bilaterally to the knees. Improved. No calf tenderness NEUROLOGICAL: Awake and alert. He is somnolent with periods of confusion but can hold a simple conversation. A/P Problem List: (1) Fluid overload ICD Code: E87.70 Status: Acute (2) Hypoxia ICD Code: R09.02 Status: Acute (3) Physical deconditioning ICD Code: R53.81 Status: Acute (4) History of squamous cell carcinoma ICD Code: Z85.89 Status: Chronic (5) History of atrial fibrillation ICD Code: Z86.79 Status: Acute (6) Neck malignant neoplasm ICD Code: C76.0 Status: Acute (7) Type 2 diabetes mellitus ICD Code: E11.9 Status: Chronic (8) COPD (chronic obstructive pulmonary disease) ICD Code: J44.9 Status: Acute (9) History of coronary artery disease ICD Code: Z86.79 (10) Hypothyroidism ICD Code: E03.9 Status: Chronic (11) Systolic CHF, acute on chronic ICD Code: I50.23 Status: Acute Assessment and Plan 66-year-old male with multiple comorbid conditions undergoing treatment for 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 The patient has been accumulating fluid in his bilateral lower extremities. Outside chest x-ray concerning for pulmonary edema. He did not response to oral Lasix. He was found to be hypoxemic in clinic. He was admitted for further evaluation and treatment. The patient has had a declining course. The patient and his family agreed to palliative care consult. 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 He also has a recent history of myxedema coma. - Appreciate Cardiology following. Fluid status is improving with IV Lasix. BP low. Will Hold Lasix for now. Discussed with RN. Will follow blood pressure closely and notify cardiology if no improvement. - Continue supplemental oxygen. - 2-D echocardiogram pending. - LE negative. 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 Experiencing significant back pain. - Dr. Urrutia following. Concern for progression. DW patient and his . They are now agreeable to palliative care consult. - Patient has been on Cetuximab. On dexamethasone and Oxycodone. Atrial fibrillation, CAD, hypertension: - Continue metoprolol, statin. Cardiology following. Chronic renal insufficiency: Appear to be stable. Cautious with diuretics. Monitor BMP. Jugular vein thrombosis: This was discovered about a week and half ago. The patient was started on Eliquis. DW radiologist who compared the repeat US. It is the same compared to the the study on Fed 13. Hematology following as above. - Eliquis on hold secondary to oozing from the port site. Hypothyroidism with recent myxedema coma about a month and half ago. He is responding to Synthroid. Per discussion with his daugther, Dr. Scherer, he did better on 112 mg. restart him back on 112 mg. His TSH is still 14 but this is much improved. COPD: Chronic.Continue home dose inhalers. Supplemental oxygen as needed. Type 2 diabetes: Hold oral hypoglycemic agent. Sliding scale insulin with Accu- Cheks. Atrial fibrillation: Continue metoprolol. Eliquis on hold. Sacral pressure ulcer: Present on admission. Patient is sedentary at home. - Frequent turning. Dressing per nursing. GI prophylaxis: PPI. DVT PPx: On Eliquis. Aby Figueroa MD Oct 30, 2016 13:40
--- NOTE | 2016-10-30 15:09 | PD.CARD.PN ---
Objective Vital Signs / I&O Vital Signs Date Time Temp Pulse Resp B/P Pulse Ox O2 Delivery O2 Flow Rate FiO2 10/30/16 12:00 98.1 90 18 98/54 97 10/30/16 09:06 Nasal Cannula 4.00 10/30/16 08:00 97.9 91 18 93/51 96 10/30/16 07:00 Nasal Cannula 2.00 10/30/16 04:00 97.2 91 18 95/51 93 10/30/16 00:00 97.2 87 18 112/54 94 10/29/16 22:00 Room Air 10/29/16 20:00 97.6 98 18 116/55 93 10/29/16 16:00 97.8 87 20 99/57 96 I/O 10/29/16 10/29/16 10/29/16 10/30/16 10/30/16 10/30/16 07:00 15:00 23:00 07:00 15:00 23:00 Intake Total 110 ml 360 ml 360 ml 240 ml Output Total 400 ml 750 ml 600 ml Balance -290 ml -390 ml 360 ml -360 ml Intake Oral 110 ml 360 ml 360 ml 240 ml Output Urine Total 400 ml 750 ml 600 ml # Voids 1 4 # Bowel Movements 0 1 3 Laboratory Laboratory Tests Test 10/30/16 05:55 White Blood Count 6.7 TH/MM3 Red Blood Count 2.23 MIL/MM3 Hemoglobin 8.1 GM/DL Hematocrit 23.0 % Mean Corpuscular Volume 103.1 FL Mean Corpuscular Hemoglobin 36.5 PG Mean Corpuscular Hemoglobin 35.4 % Concent Red Cell Distribution Width 21.4 % Platelet Count 96 TH/MM3 Mean Platelet Volume 8.9 FL Sodium Level 136 MEQ/L Potassium Level 3.9 MEQ/L Chloride Level 95 MEQ/L Carbon Dioxide Level 32.6 MEQ/L Anion Gap 8 MEQ/L Blood Urea Nitrogen 38 MG/DL Creatinine 1.26 MG/DL Estimat Glomerular Filtration 57 ML/MIN Rate Random Glucose 122 MG/DL Calcium Level 8.3 MG/DL Assessment and Plan Discussed Condition With PT STABLE AND S CNEW C/O BUT FEELS TERRIBLE HIS BP IS TRENDING DOWN AND LASIX AND METOPROLOL ARE BEING HELD JVP NL V BS NO RALES IRREGULA 1/6 ARCELIA NO S3 NO EDEMA CREAT 1.3 WILL GIVE FLUIDS PRN HOLD DIURETIC Sickinger,Bruce Lauro DO Oct 30, 2016 15:08
[2016-10-30] MEDS ORDERED: SODIUM CHLOR 0.9% 250 ML INJ 250 ML IV PRN (15:45)
[2016-10-30] MEDS: oxyCODONE HCL ORAL CONC 20 MG/ML SYRINGE PO PRN (17:03)
[2016-10-30] MEDS: SODIUM CHLORIDE 0.9% FLUSH 5 ML FLUSH IVF SCH (23:47)
[2016-10-31] VITALS (10 sets, daily range): BP systolic 94–111; BP diastolic 53–62; PULSE 76–94; RESP 17–20; TEMP 96.1–98.2; O2SAT 94–98
[2016-10-31] MEDS: oxyCODONE HCL ORAL CONC 20 MG/ML SYRINGE PO PRN ×2 (05:33→19:49)
[2016-10-31] MEDS: LEVOTHYROXINE SODIUM 112 MCG TAB PO SCH (05:33)
[2016-10-31 05:44] LABS: HEMATOCRIT 23.2 % (39.0-51.0); MEAN CELL VOLUME 103.7 FL (80.0-100.0); MEAN CORPUSCULAR HEMOGLOBIN 35.4 PG (27.0-34.0); MEAN CORPUSCULAR HGB CONC 34.1 % (32.0-36.0); PLATELET COUNT 90 TH/MM3 (150-450); RED BLOOD COUNT 2.23 MIL/MM3 (4.50-5.90); RED CELL DISTRIBUTION WIDTH 20.8 % (11.6-17.2)
[2016-10-31 05:47] LABS: REVIEW FLAG AUTO DIFF
[2016-10-31 06:09] LABS: BICARBONATE 29.9 MEQ/L (21.0-32.0); POTASSIUM 3.8 MEQ/L (3.5-5.1)
[2016-10-31] MEDS: INSULIN ASPART SUPPLEMENTAL SCALE SQ SCH ×4 (06:32→22:06)
[2016-10-31] MEDS: TAMSULOSIN HCL 0.4 MG CAP PO SCH (09:45)
[2016-10-31] MEDS: ESCITALOPRAM OXALATE 10 MG TAB PO SCH (09:45)
[2016-10-31] MEDS: LORATADINE 10 MG TAB PO SCH (09:45)
[2016-10-31] MEDS: PANTOPRAZOLE SOD 20 MG DELAYED RELEASE TAB PO SCH (09:45)
[2016-10-31] MEDS: METOPROLOL SUCCINATE 25 MG EXTENDED RELEASE TAB PO SCH ×2 (09:45→22:06)
[2016-10-31] MEDS: DEXAMETHASONE 0.5 MG TAB PO SCH (09:45)
[2016-10-31] MEDS: POTASSIUM CL 40 MEQ/30 ML LIQ UDC PO SCH ×2 (09:46→22:06)
[2016-10-31] MEDS: SODIUM CHLORIDE 0.9% FLUSH 5 ML FLUSH IVF SCH ×2 (09:46→22:06)
[2016-10-31] MEDS: TIOTROPIUM BROMIDE 18 MCG INH INH SCH (09:47)
--- NOTE | 2016-10-31 10:46 | PD.ONC.PN ---
Subjective Subjective Remarks Afebrile overnight. Patient resting comfortably. No complaints. Objective Data Date Time Temp Pulse Resp B/P Pulse Ox O2 Delivery O2 Flow Rate FiO2 10/31/16 10:41 82 10/31/16 09:56 Nasal Cannula 3.50 10/31/16 08:40 96.3 94 20 111/56 98 10/31/16 07:21 94 Nasal Cannula 3.50 10/31/16 04:41 98.0 76 17 106/56 95 10/31/16 04:00 Nasal Cannula 3.50 10/31/16 00:28 98.0 81 17 104/62 94 10/30/16 20:35 98.1 80 17 102/56 94 10/30/16 20:00 Nasal Cannula 3.50 10/30/16 20:00 Nasal Cannula 3.50 10/30/16 16:00 97.9 107 20 96/54 96 10/30/16 12:00 98.1 90 18 98/54 97 10/31/16 10/31/16 10/31/16 07:00 15:00 23:00 Intake Total 180 ml 50 ml Output Total 350 ml Balance -170 ml 50 ml Result Diagram: 10/31/16 0536 10/31/16 0536 Laboratory Results Laboratory Tests Test 10/31/16 05:36 White Blood Count 7.0 TH/MM3 Red Blood Count 2.23 MIL/MM3 Hemoglobin 7.9 GM/DL Hematocrit 23.2 % Mean Corpuscular Volume 103.7 FL Mean Corpuscular Hemoglobin 35.4 PG Mean Corpuscular Hemoglobin 34.1 % Concent Red Cell Distribution Width 20.8 % Platelet Count 90 TH/MM3 Mean Platelet Volume 8.6 FL Sodium Level 139 MEQ/L Potassium Level 3.8 MEQ/L Chloride Level 100 MEQ/L Carbon Dioxide Level 29.9 MEQ/L Anion Gap 9 MEQ/L Blood Urea Nitrogen 39 MG/DL Creatinine 1.29 MG/DL Estimat Glomerular Filtration 56 ML/MIN Rate Random Glucose 124 MG/DL Calcium Level 8.5 MG/DL Administered Medications Medications (Trade) Dose Ordered Sig/Jacqueline Route PRN Reason Start Time Stop Time Status Last Admin Dose Admin IV Flush (NS Flush) 2 ml BID IVF 10/28/16 21:00 10/31/16 09:46 IV Flush (NS Flush) 2 ml UNSCH PRN IVF FLUSH AFTER USING IV ACCESS 10/28/16 13:00 10/28/16 13:54 Furosemide (Lasix Inj) 40 mg BID@09,18 IVP 10/28/16 18:00 Hold 10/30/16 08:53 Dexamethasone (Decadron) 1 mg DAILY PO 10/29/16 09:00 10/31/16 09:45 Escitalopram Oxalate (Lexapro) 10 mg DAILY PO 10/29/16 09:00 10/31/16 09:45 Loratadine (Claritin) 10 mg DAILY PO 10/29/16 09:00 10/31/16 09:45 Metoprolol Succinate (Toprol Xl) 25 mg BID PO 10/28/16 21:00 10/31/16 09:45 Oxycodone HCl (Roxicodone Intensol Liq) 5 mg Q4H PRN PO PAIN 1-10 10/28/16 13:15 10/31/16 05:33 Tamsulosin HCl (Flomax) 0.4 mg DAILY PO 10/29/16 09:00 10/31/16 09:45 Tiotropium [place] (Spiriva Inh) 18 mcg DAILY INH 10/29/16 09:00 10/31/16 09:47 Pantoprazole Sodium (Protonix) 20 mg DAILY PO 10/28/16 13:15 10/31/16 09:45 Sennosides (Senokot) 17.2 mg BID PRN PO CONSTIPATION 10/28/16 13:15 10/29/16 12:52 Apixaban (Eliquis) 5 mg BID PO 10/28/16 21:00 Hold 10/29/16 10:00 Potassium Chloride (KCl 40 Meq/30 ml Liq) 20 meq BID PO 10/28/16 22:00 10/31/16 09:46 Levothyroxine Sodium (Synthroid) 112 mcg DAILY@06 PO 10/30/16 06:00 10/31/16 05:33 Sodium Biphosphate/ Sodium Phosphate (Fleets Enema (Adult)) 133 ml UNSCH PRN WI CONSTIPATION 10/29/16 13:45 10/29/16 15:58 Objective Remarks GENERAL: Middle aged male, lying in bed, supine. SKIN: Warm and dry. HEAD: Normocephalic. EYES: No injection or drainage. NECK: Supple, trachea midline. CARDIOVASCULAR: +S1/S2 RESPIRATORY: anterior alvarez clear. GASTROINTESTINAL: Abdomen soft, non-tender, nondistended. EXTREMITIES: No cyanosis. mild edema, bilateral lower extremities. MUSCULOSKELETAL: Adequate muscle tone. NEUROLOGICAL: sleeping on approach but easily awakened. able to move extremities. Assessment/Plan Problem List: (1) Thrombosis Status: Acute Plan: -- RUE DVT of the R IJ and SC vein. -- Per radiologist this is unchanged from prior study. -- Currently on Eliquis; will hold for now d/t oozing at port site. (2) History of squamous cell carcinoma Status: Chronic Plan: -- plan to continue with Cetuximab once able to follow up in clinic. (3) Fluid overload Status: Acute Plan: -- improved after treatment with lasix Assessment 66 y/o male with a history of head and neck cancer admitted with SOB and fluid overload. Plan 1. monitor CBC 2. await palliative care consult today for clarification of goals 3. hold Eliquis. Attending Statement The exam, history, and the medical decision-making described in the above note were completed with the assistance of the mid-level provider. I reviewed and agree with the findings presented. I attest that I had a [id number] encounter with the patient on the same day, and personally performed and documented my assessment and findings in the medical record. Pt seen and examined, daughter Dr. Scherer and at bedside. Discuss reports of confusion earlier, pt is more clear and conversing, he was able to make sublime reference to the [place] and make humorous comments. Last dose of pain medication 12 hours ago. Discussed hospice consult for information during his period of clarity, so as not to leave decision making solely to his . Surprised by the suggestion however comforted that our primary goal is still to stabilize him medically and proceed to his next dose of Cetuximab. Discussed goal to still get him well enough to DC home. Optimize B12. Thiamine and folate already given. T3 T4 will be checked, Decadron titrated down to once a day. Optimize Synthroid. Discussed risk and benefit of transfusion, proceed with transfusion 1UPRBC slowly to avoid CHF exacerbation, follow by justin. Concern about risk of embolism and thrombotic event from Afib. Old blood at port site, ok to resume Eliquis, discuss to start at the lower dose. Nadya Larios Oct 31, 2016 10:46 Cayla Urrutia MD Oct 31, 2016 18:10
--- NOTE | 2016-10-31 11:39 | HHI.PR ---
Subjective Remarks More lethargic today. He can barely stay awake. He denies worsening in shortness of breath. He is oriented to self only. Does not know his location, date, or time. JOSEP RN. He intermittently reports back pain. Objective Vitals Vital Signs Date Time Temp Pulse Resp B/P Pulse Ox O2 Delivery O2 Flow Rate FiO2 10/31/16 10:41 82 10/31/16 09:56 Nasal Cannula 3.50 10/31/16 08:40 96.3 94 20 111/56 98 10/31/16 07:21 94 Nasal Cannula 3.50 10/31/16 04:41 98.0 76 17 106/56 95 10/31/16 04:00 Nasal Cannula 3.50 10/31/16 00:28 98.0 81 17 104/62 94 10/30/16 20:35 98.1 80 17 102/56 94 10/30/16 20:00 Nasal Cannula 3.50 10/30/16 20:00 Nasal Cannula 3.50 10/30/16 16:00 97.9 107 20 96/54 96 10/30/16 12:00 98.1 90 18 98/54 97 I/O 10/30/16 10/30/16 10/30/16 10/31/16 10/31/16 10/31/16 07:00 15:00 23:00 07:00 15:00 23:00 Intake Total 360 ml 240 ml 180 ml 50 ml Output Total 600 ml 350 ml Balance 360 ml -360 ml -170 ml 50 ml Intake Oral 360 ml 240 ml 180 ml 50 ml Output Urine Total 600 ml 350 ml # Voids 4 # Bowel Movements 3 Result Diagram: 10/31/16 0536 10/31/16 0536 Objective Remarks GENERAL: Obese male in no acute distress. Somnolent but easily wake up. HEAD: Atraumatic. Normocephalic. EYES: Pupils equal round and reactive. ENT: Nose without drainage Uvula midline. Airway patent. NECK: Trachea midline. Swelling on the right side of the neck is unchanged. CARDIOVASCULAR: Normal rate and irregular rhythm without murmurs, gallops, or rubs. RESPIRATORY: Respiratory effort is fair. There are faint crackles at the bases bilaterally. No wheezing. MUSCULOSKELETAL: Abel. lower extremity edema improved down to 1+, up to the calf. NEUROLOGICAL: Lethargic, can say yes and no but not able to have a conversation. He can follow some commands and move all extremities but very weak. A/P Problem List: (1) Fluid overload ICD Code: E87.70 Status: Acute (2) Hypoxia ICD Code: R09.02 Status: Acute (3) Physical deconditioning ICD Code: R53.81 Status: Acute (4) History of squamous cell carcinoma ICD Code: Z85.89 Status: Chronic (5) History of atrial fibrillation ICD Code: Z86.79 Status: Acute (6) Neck malignant neoplasm ICD Code: C76.0 Status: Acute (7) Type 2 diabetes mellitus ICD Code: E11.9 Status: Chronic (8) COPD (chronic obstructive pulmonary disease) ICD Code: J44.9 Status: Acute (9) History of coronary artery disease ICD Code: Z86.79 (10) Hypothyroidism ICD Code: E03.9 Status: Chronic (11) Systolic CHF, acute on chronic ICD Code: I50.23 Status: Acute Assessment and Plan 66-year-old male with multiple comorbid conditions undergoing treatment for 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 The patient has been accumulating fluid in his bilateral lower extremities prior to admission. Outside chest x-ray concerning for pulmonary edema. He did not response to oral Lasix. He was found to be hypoxemic in the oncology clinic. He was admitted for further evaluation and treatment. The patient appear to have a declining course due to his cancer. Today he is more encephalopathic with worsening lethargy and confusions Acute encephalopathy 10/31/16: Worsening Lethargy and confusion. May be part of overall worsening decline from cancer burden and comorbidities, ?anoxic injury, or metabolic. Eliquis was held due to bleeding. Will need to rule out stroke. JOSEP Urrutia, no prior evidence of [employer] metastasis but that is also a possibility. DW with the patients daughter Dr. Scherer who inquired about EEG and neuro consult to help them better understand prognosis. I also discussed with his Mildred. - Will obtain MRI and EEG - Neuro checks - Consult neurology. Obtain ammonia levels. 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 He also has a recent history of myxedema coma. - Appreciate Cardiology following. Responded well to IV Lasix until BP became too low. Lasix on Hold. - Continue supplemental oxygen. 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 Experiencing significant back pain. - Dr. Urrutia following. Concern for progression. DW patient and his . They are now agreeable to palliative care consult. - Patient has been on Cetuximab. On dexamethasone and Oxycodone. Atrial fibrillation, CAD, hypertension: - Continue metoprolol, statin. Cardiology following. Chronic renal insufficiency: Appear to be stable. Cautious with diuretics. Monitor BMP. Jugular vein thrombosis: This was discovered about a week and half ago. The patient was started on Eliquis. DW radiologist who compared the repeat US. It is the same compared to the the study on Fed 13. Hematology following as above. - Eliquis on hold secondary to bleeding from the port site. Hypothyroidism with recent myxedema coma about a month and half ago. He is responding to Synthroid. Per discussion with his daugther, Dr. Scherer, he did better on 112 mg. restart him back on 112 mg. His TSH is still 14 but this is much improved. COPD: Chronic. Continue home dose inhalers. Supplemental oxygen as needed. Type 2 diabetes: Hold oral hypoglycemic agent. Sliding scale insulin with Accu- Cheks. Atrial fibrillation: Continue metoprolol. Eliquis on hold. Sacral pressure ulcer: Present on admission. Patient is sedentary at home. - Frequent turning. Dressing per nursing. GI prophylaxis: PPI. DVT PPx: On Eliquis. Discharge Planning Patient's goal is to return home. Aby Figueroa MD Oct 31, 2016 11:39
--- NOTE | 2016-10-31 12:05 | PD.CONS ---
Consult Service Palliative Care Consult Requested By Dr. Henry MD. Primary Care Physician Norman Bentley MD Reason for Consultation a. To assist with evaluation and management of symptoms including: Pain and generalize debility. b. To assist medical decision maker(s) with: better understanding of current medical conditions; weighing benefits/burdens of medical treatment options; making medical treatment decisions. . HPI History of Present Illness Mr. 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 Other past medical history includes diabetes mellitus , hypertension, and stage II chronic kidney disease. Patient presented on from his oncology office secondary to hypoxia with oxygen saturation in the 80s. Family reports that patient has been having increased lower extremity edema and difficulty breathing for the past 2 weeks. Chest x-ray 10/28/16 showed pulmonary edema with a possible small left effusion. He was given Lasix and admitted for additional workup and management. Clinical course workup as followed: * Upper extremity ultrasound showing DVT to right internal jugular vein and subclavian vein. * Bilateral lower extremity ultrasound negative for DVT. * Lab work today showing WBC 7.0, hemoglobin 10.9, platelet count 90. * Sodium 139, potassium 3.8, BUN/creatinine 39/1.29. * Free T4 1 0.16, free T3 0.86. Patient was found to be in congestive heart failure. Cardiology consulted on recommending diuresis and close monitoring of renal function. Echocardiogram obtained on 10/29/16, EF 30-35%. [id number] aortic sclerosis, trace mitral and tricuspid regurgitation. Patient was placed on Eliquis for right upper extremity DVT, this is currently on hold secondary to oozing at port site. Oncology -Dr. Urrutia consulted, Reviewed prior hospitalizations. This is patient's fourth acute hospitalization in the last year. 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 He was treated with IV thyroid replacement. Patient's mentation improved and patient was discharged home with home health services in stable condition. During his last hospitalization, patient was seen by palliative care -Dr. Phelan. Patient elected to continue ongoing aggressive cancer directed treatment. The patient has been under the care of medical oncology since his initial presentation with squamous cell carcinoma of head and neck. There was tumor progression after completing initial plan of treatment with chemotherapy and radiation, CT-guided lung biopsy confirmed metastatic disease, he was placed on pembrolizumab. Once again, there was disease progression in spite of treatment. Patient was then started on combination chemotherapy, once again with progression of disease. He developed back pain, and lesions at L1 and L3 were discovered. He completed radiation to lumbar regions on August 2016 and began immunotherapy treatment with Cetuximab, complicated by significant hypothyroidism. After patient was discharged home in September 27, she continue to follow with oncology -Dr. Urrutia for further management. Patient completed 3 radiation treatments to lumbar spine on October 2015, last treatment on 10/21/16. Patient is currently on cetuximab single agent. Patient was evaluated [facility] for participation in clinical trial but declined by fraud investigator secondary to patient's poor performance status. Concerns about continued progression of disease and patient's ability to continue disease specific treatment secondary to congestive heart failure and profound physical deconditioning/performance status. Restaging has been deferred until patient is discharge. Palliative care has been consulted for further clarifications of goals of care. Patient seen in his room, sleepy, briefly opening eyes to voice. No family at bedside. Alert to self, disoriented as to place and situation. He was able to tell me his name with incorrect age, unable to tell me place. Denying shortness of breath, pain, nausea/vomiting. Endorsing some mild abdominal discomfort on palpation. Unable to elaborate a complaint. Case discussed with Dr. Figueroa, neurology has been consulted, pending MRI of the brain and EEG. Telephone conversation with patient's daughter Ana M Scherer who is a physician. Reviewed that palliative care has been reconsulted secondary to patient's clinical condition and progressive decline. Pending neurology consultation, MRI of the brain and EEG in order to reassess goals of care and CODE STATUS at this time. All of care contact information has been provided to daughter. Case discussed with Dr. Figueroa and Dr. Jerry. . Function/Cognitive Trajectory Patient was reporting acceptable functional status up until last acute hospitalization in September 22, 2016 secondary to height hypothyroidism. Prior to this, patient was using a walker at home primarily for balance. He required minimal assistance with ADLs. Patient was discharged home on 09/27/16 with home health. Patient requiring moderate to marked assistance with ADLs, reporting extreme fatigue . Poor appetite reported. Episodes of confusion in the past month. . 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 Hyperlipidemia Hypothyroidism with recent myxedema coma about a month and half ago . Past Surgical History Port insertion PEG tube placement and removal Biopsy 2014 Colonoscopy 2012 Endoscopy 2012 Vasectomy 1972 . Current Medications Medications (Trade) Dose Ordered Sig/Jacqueline Route Start Time Stop Time Status Last Admin (NS Flush) 2 ml BID IVF 10/28/16 21:00 10/31/16 09:46 (NS Flush) 2 ml UNSCH PRN IVF 10/28/16 13:00 10/28/16 13:54 (Lasix Inj) 40 mg BID@09,18 IVP 10/28/16 18:00 Hold 10/30/16 08:53 (Decadron) 1 mg DAILY PO 10/29/16 09:00 10/31/16 09:45 (Lexapro) 10 mg DAILY PO 10/29/16 09:00 10/31/16 09:45 (Claritin) 10 mg DAILY PO 10/29/16 09:00 10/31/16 09:45 (Toprol Xl) 25 mg BID PO 10/28/16 21:00 10/31/16 09:45 (Roxicodone Intensol Liq) 5 mg Q4H PRN PO 10/28/16 13:15 10/31/16 05:33 (Flomax) 0.4 mg DAILY PO 10/29/16 09:00 10/31/16 09:45 (Spiriva Inh) 18 mcg DAILY INH 10/29/16 09:00 10/31/16 09:47 (Protonix) 20 mg DAILY PO 10/28/16 13:15 10/31/16 09:45 (Senokot) 17.2 mg BID PRN PO 10/28/16 13:15 10/29/16 12:52 (Eliquis) 5 mg BID PO 10/28/16 21:00 Hold 10/29/16 10:00 (D50w (Vial) Inj) 25 ml UNSCH PRN IV PUSH 10/28/16 14:45 (Glucagon Inj) 1 mg UNSCH PRN OTHER 10/28/16 14:45 (KCl 40 Meq/30 ml Liq) 20 meq BID PO 10/28/16 22:00 10/31/16 09:46 (Synthroid) 112 mcg DAILY@06 PO 10/30/16 06:00 10/31/16 05:33 Sodium Biphosphate/ Sodium Phosphate 133 ml 133 ml UNSCH PRN W[place] 10/29/16 13:45 10/29/16 15:58 (NS 250 ml Inj) 250 ml @ 0 mls/hr UNSCH PRN IV 10/30/16 15:45 Family History Mother of heart failure Father had accidental Brother undergoing treatment for mesothelioma No other first-degree relatives with cancer . Substance Use Tobacco: [id number] history. Quit smoking in October 2015, it appears that since then he restarted. Alcohol: Up until recently, consuming 4-5 drinks every night. Prescription med abuse: No known abuse. Illicits: No known abuse of illicit drugs. . Psychosocial History Patient lives at home with his . Born and raised in [place]. Moved to [place] in early s. Completed high school and some college. 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 Has been twice, to current Misha for the past 17 years. Has 2 children, Ana M, who is a local primary care physician, and Janelle. Both children live locally. . Spiritual/Cultural Factors Hinduism brittany. . Living Will: Completed, but not made available Health Care Surrogate: Copy in medical record Durable Power of Facilities Supervisor: Never completed Date completed: 03/02/2015. . Health Care Surrogate(s): Misha Joiner -spouse and Ana M Scherer -daughter are listed as the designated joint surrogates. Documented care wishes: Pending copy of living will. Family/friends goals: Full code. Continue current medical care, pending neurology consultation. . Ethical and Legal Issues No ethical and legal issues have been identified. . Physical Exam Vital Signs Date Time Temp Pulse Resp B/P Pulse Ox O2 Delivery O2 Flow Rate FiO2 10/31/16 10:41 82 10/31/16 09:56 Nasal Cannula 3.50 10/31/16 08:40 96.3 94 20 111/56 98 10/31/16 07:21 94 Nasal Cannula 3.50 10/31/16 04:41 98.0 76 17 106/56 95 10/31/16 04:00 Nasal Cannula 3.50 10/31/16 00:28 98.0 81 17 104/62 94 10/30/16 20:35 98.1 80 17 102/56 94 10/30/16 20:00 Nasal Cannula 3.50 10/30/16 20:00 Nasal Cannula 3.50 10/30/16 16:00 97.9 107 20 96/54 96 10/30/16 12:00 98.1 90 18 98/54 97 10/30/16 10/31/16 19:00 07:00 Intake Total 240 ml 180 ml Output Total 600 ml 350 ml Balance -360 ml -170 ml Intake Oral 240 ml 180 ml Output Urine Total 600 ml 350 ml Exam CONSTITUTIONAL/GENERAL: This is an adequately nourished patient, in no apparent distress. Lethargic, briefly opening eyes to voice. TUBES/LINES/DRAINS: Nasal cannula, PIV's SKIN: No jaundice, rashes, or lesions. Ecchymoses on upper extremities. No wounds seen anteriorly. Skin temperature appropriate. Not diaphoretic. HEAD: Atraumatic. Normocephalic. EYES: Pupils equal and round and reactive. ENT: Hearing appears normal. Nose without bleeding or purulent drainage. Dry lips. NECK: Trachea midline. Supple, nontender. CARDIOVASCULAR: irregular rate and rhythm without murmurs, gallops, or rubs. No JVD. Peripheral pulses symmetric. Trace edema to bilateral lower extremities. RESPIRATORY/CHEST: Symmetric, unlabored respirations. Fine crackles bilaterally. GASTROINTESTINAL: Abdomen soft, large, round. Mild tenderness on palpation. Bowel sounds present. GENITOURINARY: Without palpable bladder distension. MUSCULOSKELETAL: Extremities without clubbing, cyanosis. NEUROLOGICAL: Sleepy, lethargic. Briefly opening eyes to voice. Verbal, intermittent confusion. Following some commands. PSYCHIATRIC: Appears calm. . Diagnostic Tests Laboratory Laboratory Tests Test 10/28/16 10/29/16 10/29/16 10/29/16 13:46 06:25 06:30 10:30 Magnesium Level 1.3 MG/DL 1.7 MG/DL (1.5-2.5) (1.5-2.5) B-Type Natriuretic Peptide 310 PG/ML (0-100) Thyroid Stimulating Hormone 14.300 uIU/ML 3rd Gen (0.358-3.740) Sodium Level 135 MEQ/L (136-145) Potassium Level 4.0 MEQ/L (3.5-5.1) Chloride Level 93 MEQ/L (98-107) Carbon Dioxide Level 32.6 MEQ/L (21.0-32.0) Anion Gap 9 MEQ/L (5-15) Blood Urea Nitrogen 38 MG/DL (7-18) Creatinine 1.25 MG/DL (0.60-1.30) Estimat Glomerular Filtration 58 ML/MIN (>89) Rate Random Glucose 150 MG/DL (74-106) Calcium Level 8.0 MG/DL (8.5-10.1) Free Thyroxine 1.16 NG/DL (0.76-1.46) Free Triiodothyronine (T3) 0.86 PG/ML pg/dL (2.18-3.98) Prothrombin Time 12.8 SEC (9.8-11.6) Prothromb Time International 1.2 RATIO Ratio Activated Partial 33.7 SEC Thromboplast Time (24.3-30.1) White Blood Count 7.6 TH/MM3 (4.0-11.0) Red Blood Count 2.25 MIL/MM3 (4.50-5.90) Hemoglobin 8.0 GM/DL (13.0-17.0) Hematocrit 23.2 % (39.0-51.0) Mean Corpuscular Volume 103.1 FL (80.0-100.0) Mean Corpuscular Hemoglobin 35.6 PG (27.0-34.0) Mean Corpuscular Hemoglobin 34.5 % Concent (32.0-36.0) Red Cell Distribution Width 21.9 % (11.6-17.2) Platelet Count TH/MM3 (150-450) Mean Platelet Volume 8.5 FL (7.0-11.0) Test 10/30/16 10/31/16 05:55 05:36 White Blood Count 6.7 TH/MM3 7.0 TH/MM3 (4.0-11.0) (4.0-11.0) Red Blood Count 2.23 MIL/MM3 2.23 MIL/MM3 (4.50-5.90) (4.50-5.90) Hemoglobin 8.1 GM/DL 7.9 GM/DL (13.0-17.0) (13.0-17.0) Hematocrit 23.0 % 23.2 % (39.0-51.0) (39.0-51.0) Mean Corpuscular Volume 103.1 FL 103.7 FL (80.0-100.0) (80.0-100.0) Mean Corpuscular Hemoglobin 36.5 PG 35.4 PG (27.0-34.0) (27.0-34.0) Mean Corpuscular Hemoglobin 35.4 % 34.1 % Concent (32.0-36.0) (32.0-36.0) Red Cell Distribution Width 21.4 % 20.8 % (11.6-17.2) (11.6-17.2) Platelet Count 96 TH/MM3 90 TH/MM3 (150-450) (150-450) Mean Platelet Volume 8.9 FL 8.6 FL (7.0-11.0) (7.0-11.0) Sodium Level 136 MEQ/L 139 MEQ/L (136-145) (136-145) Potassium Level 3.9 MEQ/L 3.8 MEQ/L (3.5-5.1) (3.5-5.1) Chloride Level 95 MEQ/L 100 MEQ/L (98-107) (98-107) Carbon Dioxide Level 32.6 MEQ/L 29.9 MEQ/L (21.0-32.0) (21.0-32.0) Anion Gap 8 MEQ/L (5-15) 9 MEQ/L (5-15) Blood Urea Nitrogen 38 MG/DL (7-18) 39 MG/DL (7-18) Creatinine 1.26 MG/DL 1.29 MG/DL (0.60-1.30) (0.60-1.30) Estimat Glomerular Filtration 57 ML/MIN (>89) 56 ML/MIN (>89) Rate Random Glucose 122 MG/DL 124 MG/DL (74-106) (74-106) Calcium Level 8.3 MG/DL 8.5 MG/DL (8.5-10.1) (8.5-10.1) Result Diagram: 10/31/16 0536 10/31/16 0536 Imaging Last Impressions Upper Extremity Ultrasound 10/29/16 0000 Signed Impressions: Service Date/Time: Saturday, October 29, 2016 08:42 - CONCLUSION: Occlusive deep vein thrombosis of the right internal jugular vein and subclavian vein. Vamsi Norman MD ADDENDUM: No significant interval change from prior study a [facility] of 10/17/2016. Vamsi Norman MD Lower Extremity Ultrasound 10/29/16 0000 Signed Impressions: Service Date/Time: Friday, October 28, 2016 22:13 - CONCLUSION: No evidence of lower extremity DVT on the right or left. Vamsi Norman MD Chest X-Ray 10/28/16 0000 Signed Impressions: Service Date/Time: Friday, October 28, 2016 16:58 - CONCLUSION: 1. Pulmonary venous congestion with possible small left effusion. Jw Sanchez MD Procedures Patient/Family Conference Present at Family Conference: Telephone conversation with gabrielle Scherer . Family Conference Location: Telephone Issues Discussed: * Palliative care role, purpose, approach * Additional medical, psychosocial, and spiritual history * Patients general health, functional status, and cognitive changes in the months leading up to the current hospitalization * Family's understanding of the current medical problems * Questions answered to the best of my ability * Palliative care contact information provided * Goals of care to be readdressed once neurology consult and MRI/EEG is completed. . Assessment and Plan Disease Oriented Problem List: (1) Systolic CHF, acute on chronic (2) Neck malignant neoplasm (3) Pulmonary edema (4) Physical deconditioning Symptom Scale: (1) Pain 0-10 Scale: Unable to quantify Comment: Secondary to burden of disease. Appears controlled would reduce home regimen of oxycodone 5 mg. (2) Debility 0-10 Scale: Unable to quantify Comment: Progressive secondary to burden of disease, multiple comorbidities, and recent hospitalization. Pertinent Non-Medical Issues Psychosocial: . Has 2 children. Spiritual: Hinduism. Legal: Living well and healthcare surrogate designation completed. Ethical issues impacting care: No ethical legal issues have been identified. . Important Contacts Daughter Ana M Scherer . misha Joiner [phone]. . Prognosis Mr. Joiner is a 66-year-old male with a past medical history significant for metastatic head/neck cancer that has continued to progress in spite of multiple treatments. Patient with multiple recent hospitalizations and continue functional decline. Unclear if patient at this point and will be a candidate for further systemic therapy. Patient is very high risk for further decline, complications and given her progression of disease, profound physical deconditioning, and multiple comorbidities. Very poor prognosis for an improved quality of life. . Code Status: Full Code Plan * CODE STATUS: Full code at this time. * MEDICAL DECISION-MAKING: Patient incapacitated at this time secondary to clinical condition, confused and lethargic. Patient's Misha Joiner and daughter Ana M Scherer as HCS. * GOALS OF CARE: Pending neurology consultation, MRI of the brain and EEG in order to reassess goals of care and CODE STATUS at this time. Concerns about progression of disease and patient's ability to continue with immunotherapy secondary to poor performance status and clinical condition. * SYMPTOMS: ==Pain, secondary to burden of disease/lumbar metastatic disease. Home regimen of oxycodone 15 mg as needed, they has recently been increase. Currently on oxycodone 5 mg every 4 hours as needed. Has received 1 dose today and one dose yesterday. Reduced dose appears effective at this time. No recommendations == Debility, multifactorial. Secondary to burden of disease, recent acute hospitalization, and treatment. Concerns about patient's ability to continue immunotherapy secondary to profound physical deconditioning. * Case has been discussed with Dr. Prasad and Dr. Jerry. * Palliative care contact information has been provided to family. * Palliative care will continue to follow to assist with symptom management and to further evaluate goals of medical treatment as the clinical course evolves. . Time Spent Total Floor Time (mins): 75 (Patient name to me. Total time to include review and summarization of available medical records including prior hospitalizations , physical exam, telephone conversation with daughter, and case discussion with Dr. Gonzalez and Dr. Jerry.) >50% Counseling/Coord of Care: Yes Thank you for the opportunity to participate in the care of Mr. Joiner. Attestation To help prompt me to consider important information that might be impacting today's encounter and assessment, information from prior notes written by myself or my colleagues may have been "brought forward" into today's note. My signature on this note, however, is an attestation that I personally performed the exam, history, and/or decision-making noted today, and, unless otherwise indicated, the interactions with patient, family, and staff as well as the review of records all occurred today. I also attest that the listed assessment and stated plan reflect my best clinical judgment today based on the combination of historical information, prior notes, and today's exam/ interactions. When time spent is documented, it refers only to time spent today by the signer, or if indicated, combined time spent today by collaborating physician/nurse practitioner. Mariel Canales Oct 31, 2016 12:05
[2016-10-31 13:09] LABS: INDIRECT BILIRUBIN 0.3 MG/DL (0.0-0.8); TOTAL BILIRUBIN ADULT 0.5 MG/DL (0.2-1.0)
[2016-10-31] MEDS: THIAMINE HCL 100 MG TAB PO SCH (13:58)
[2016-10-31] MEDS: FOLIC ACID 1 MG TAB PO SCH (13:58)
--- NOTE | 2016-10-31 14:28 | PD.CARD.PN ---
Subjective Subjective Remarks at beside, patient has increased paranoia this today. Refusing MRI brain. Eliquis on hold for oozing from port site. Plts90, Hgb/Hct 7.9/23.2 (Shirlene Navarrete) Objective Medications Current Medications Medications (Trade) Dose Ordered Sig/Jacqueline Route Start Time Stop Time Status Last Admin (NS Flush) 2 ml BID IVF 10/28/16 21:00 10/31/16 09:46 (NS Flush) 2 ml UNSCH PRN IVF 10/28/16 13:00 10/28/16 13:54 (Lasix Inj) 40 mg BID@,18 IVP 10/28/16 18:00 Hold 10/30/16 08:53 (Decadron) 1 mg DAILY PO 10/29/16 09:00 10/31/16 09:45 (Lexapro) 10 mg DAILY PO 10/29/16 09:00 10/31/16 09:45 (Claritin) 10 mg DAILY PO 10/29/16 09:00 10/31/16 09:45 (Toprol Xl) 25 mg BID PO 10/28/16 21:00 10/31/16 09:45 (Roxicodone Intensol Liq) 5 mg Q4H PRN PO 10/28/16 13:15 10/31/16 05:33 (Flomax) 0.4 mg DAILY PO 10/29/16 09:00 10/31/16 09:45 (Spiriva Inh) 18 mcg DAILY INH 10/29/16 09:00 10/31/16 09:47 (Protonix) 20 mg DAILY PO 10/28/16 13:15 10/31/16 09:45 (Senokot) 17.2 mg BID PRN PO 10/28/16 13:15 10/29/16 12:52 (Eliquis) 5 mg BID PO 10/28/16 21:00 Hold 10/29/16 10:00 (D50w (Vial) Inj) 25 ml UNSCH PRN IV PUSH 10/28/16 14:45 (Glucagon Inj) 1 mg UNSCH PRN OTHER 10/28/16 14:45 (KCl 40 Meq/30 ml Liq) 20 meq BID PO 10/28/16 22:00 10/31/16 09:46 (Synthroid) 112 mcg DAILY@06 PO 10/30/16 06:00 10/31/16 05:33 Sodium Biphosphate/ Sodium Phosphate 133 ml 133 ml UNSCH PRN [place] 10/29/16 13:45 10/29/16 15:58 (NS 250 ml Inj) 250 ml @ 0 mls/hr UNSCH PRN IV 10/30/16 15:45 (Vitamin B1) 100 mg DAILY PO 10/31/16 13:00 10/31/16 13:58 (Folate) 1 mg DAILY PO 10/31/16 13:00 10/31/16 13:58 Vital Signs / I&O Vital Signs Date Time Temp Pulse Resp B/P Pulse Ox O2 Delivery O2 Flow Rate FiO2 10/31/16 11:55 96.1 87 20 101/53 95 10/31/16 10:41 82 10/31/16 09:56 Nasal Cannula 3.50 10/31/16 08:40 96.3 94 20 111/56 98 10/31/16 07:21 94 Nasal Cannula 3.50 10/31/16 04:41 98.0 76 17 106/56 95 10/31/16 04:00 Nasal Cannula 3.50 10/31/16 00:28 98.0 81 17 104/62 94 10/30/16 20:35 98.1 80 17 102/56 94 10/30/16 20:00 Nasal Cannula 3.50 10/30/16 20:00 Nasal Cannula 3.50 10/30/16 16:00 97.9 107 20 96/54 96 I/O 10/30/16 10/30/16 10/30/16 10/31/16 10/31/16 10/31/16 07:00 15:00 23:00 07:00 15:00 23:00 Intake Total 360 ml 240 ml 180 ml 50 ml Output Total 600 ml 350 ml Balance 360 ml -360 ml -170 ml 50 ml Intake Oral 360 ml 240 ml 180 ml 50 ml Output Urine Total 600 ml 350 ml # Voids 4 # Bowel Movements 3 Physical Exam GENERAL: Ill appearing male, laying in bed SKIN: Warm and dry. HEAD: Normocephalic. EYES: No scleral icterus. No injection or drainage. NECK: Supple, trachea midline. CARDIOVASCULAR: Irregularly irregular RESPIRATORY: Breath sounds equal bilaterally. No accessory muscle use. GASTROINTESTINAL: Abdomen soft, non-tender, nondistended. MUSCULOSKELETAL: No cyanosis, edema present BACK: Nontender without obvious deformity. Pysch: paranoid Laboratory Laboratory Tests Test 10/31/16 05:36 White Blood Count 7.0 TH/MM3 Red Blood Count 2.23 MIL/MM3 Hemoglobin 7.9 GM/DL Hematocrit 23.2 % Mean Corpuscular Volume 103.7 FL Mean Corpuscular Hemoglobin 35.4 PG Mean Corpuscular Hemoglobin 34.1 % Concent Red Cell Distribution Width 20.8 % Platelet Count 90 TH/MM3 Mean Platelet Volume 8.6 FL Sodium Level 139 MEQ/L Potassium Level 3.8 MEQ/L Chloride Level 100 MEQ/L Carbon Dioxide Level 29.9 MEQ/L Anion Gap 9 MEQ/L Blood Urea Nitrogen 39 MG/DL Creatinine 1.29 MG/DL Estimat Glomerular Filtration 56 ML/MIN Rate Random Glucose 124 MG/DL Calcium Level 8.5 MG/DL Total Bilirubin 0.5 MG/DL Direct Bilirubin 0.2 MG/DL Indirect Bilirubin 0.3 MG/DL Aspartate Amino Transf 45 U/L (AST/SGOT) Alanine Aminotransferase 21 U/L (ALT/SGPT) Alkaline Phosphatase 112 U/L Total Protein 5.2 GM/DL Albumin 1.9 GM/DL Imaging Last 72 hours Impressions Upper Extremity Ultrasound 10/29/16 0000 Signed Impressions: Service Date/Time: Saturday, October 29, 2016 08:42 - CONCLUSION: Occlusive deep vein thrombosis of the right internal jugular vein and subclavian vein. Vamsi Norman MD ADDENDUM: No significant interval change from prior study a [facility] of 10/17/2016. Vamsi Norman MD Lower Extremity Ultrasound 10/29/16 0000 Signed Impressions: Service Date/Time: Friday, October 28, 2016 22:13 - CONCLUSION: No evidence of lower extremity DVT on the right or left. Vamsi Norman MD (Shirlene Navarrete) Assessment and Plan Assessment and Plan Assessment: Acute on chronic systolic CHF exacerbation Cardiomyopathy EF 30-35% on echo Chronic afib, Eliquis on hold Hx CAD SCC Head and neck Chronic renal insufficiency Occlusive deep vein thrombosis of the right internal jugular vein and subclavian vein. Thrombocytopenia Anemia Hypothyroidism Plan: Will defer to Heme/Onc to resume Eliquis Continue diuresis, transition back to Lasix oral. Low BP with lasix IV. Continue rate control therapy Unable to tolerate JON/ARB due to low BP Patient seen and evaluated by Dr. Griffin (Shirlene Navarrete) Assessment and Plan The exam, history, and the medical decision-making described in the above note were completed with the assistance of the mid-level provider. I reviewed and agree with the findings presented. I attest that I had a [id number] encounter with the patient on the same day, and personally performed and documented my assessment and findings in the medical record. (Jordan Griffin MD) Shirlene Navarrete Oct 31, 2016 14:28 Jordan Griffin MD Nov 01, 2016 14:34
--- NOTE | 2016-10-31 15:41 | MG ---
cc: AMINA HOBBS M.D. Lab No: Date: Age: 210/31/2017 Sex: M Race: ELECTROENCEPHALOGRAM NUMBER [id number] TECHNIQUE 17 channel EEG. DESCRIPTION The background rhythm reveals initially some mild slowing in the theta range probably related to drowsiness at about 6 Hz. Later on there does appear to be a normal alpha rhythm. There are no lateralizing features identified and there are no epileptic features identified. Hyperventilation was not done. Photic stimulation results in a normal driving response. INTERPRETATION Normal EEG. MD SANTA Bass/PINKY /3:28 PM /3:37 PM
[2016-10-31] MEDS ORDERED: ACETAMINOPHEN 325 MG TAB PO PRN (18:00)
[2016-10-31] MEDS ORDERED: FUROSEMIDE 20 MG/2 ML VIAL IV PUSH PRN (19:00)
[2016-10-31] MEDS ORDERED: CYANOCOBALAMIN 1000 MCG/ML VIAL SQ ONE (20:00)
--- NOTE | 2016-10-31 20:12 | RADRPT ---
EXAM DATE/TIME: 10/31/2016 19:44 [facility] COMPARISON: CHEST SINGLE AP, October 28, 2016, 16:58. INDICATIONS : Dyspnea. MEDICAL HISTORY : Carcinoma, lung. Congestive heart failure. SURGICAL HISTORY : Infusaport. ENCOUNTER: Initial ACUITY: 3 days PAIN SCORE: 0/10 LOCATION: Bilateral chest FINDINGS: Diffuse interstitial vascular prominence has developed. There is increasing opacity in the left base. Heart and mediastinal structures are unchanged in appearance. Right-sided [id number] remains in good position. CONCLUSION: Acute pulmonary congestion with small to moderate left pleural effusion and underlying left lower lob e airspace disease. Sohail Guevara MD on October 31, 2016 at 20:10 Board Certified Radiologist. This report was verified electronically.
--- NOTE | 2016-10-31 20:19 | MB ---
cc: SOFI FRANK M.D. DATE OF CONSULTATION 10/31/2016 HISTORY OF THE PRESENT ILLNESS He is a 66-year-old seen in neurological consultation because of some lethargy and underlying cancer. 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 He was admitted with increasing back pain. He has been followed by oncology. He also has a history of myxedema. He has been noted to be more confused, paranoid here in the hospital according to the . The provides information. PAST MEDICAL HISTORY His medical problems also include: 1. Hypertension. 2. Chronic renal insufficiency. 3. COPD. 4. Diabetes. 5. As well as jugular vein thrombosis. PHYSICAL EXAMINATION On exam the patient is noted to be asleep but easily awakened. He was not the most cooperative and did not participate fully in the exam. There is some possible weakness on the left side of the face. He follows commands and moves all four extremities grossly equally. He is able to count fingers bilaterally (probably). Muscle strength reflexes were trace versus absent and plantar responses equivocal. ASSESSMENT 1. Metabolic encephalopathy. 2. Metastatic neoplasm. 3. Diabetes mellitus. He is having an EEG at the time of my visit. I was planning on obtaining an MRI of brain, but when I went to put this in, it appears that this is already placed as an order. Therefore, we will wait on the evaluation. He has atrial fibrillation and diabetes mellitus, neuropathy. MEDICATIONS Current medications reviewed. He is on: 1. Decadron. 2. Lasix. 3. Thiamine. 4. Synthroid. 5. Lexapro. 6. Flomax. 7. Spiriva. 8. Potassium. 9. Eliquis. I will follow the neurological course. Thank you for asking us to assist in his care. MD LEANN Rosales/PINKY /4:10 PM /8:08 PM
[2016-10-31] MEDS: APIXABAN 2.5 MG TABLET PO SCH (22:06)
[2016-11-01] VITALS (9 sets, daily range): BP systolic 91–102; BP diastolic 52–56; PULSE 82–98; RESP 17–22; TEMP 95.6–98.1; O2SAT 92–95
[2016-11-01] MEDS: LEVOTHYROXINE SODIUM 112 MCG TAB PO SCH (06:00)
[2016-11-01] MEDS: INSULIN ASPART SUPPLEMENTAL SCALE SQ SCH ×3 (06:07→16:00)
[2016-11-01 06:35] LABS: HEMATOCRIT 25.4 % (39.0-51.0); MEAN CELL VOLUME 98.4 FL (80.0-100.0); MEAN CORPUSCULAR HEMOGLOBIN 33.8 PG (27.0-34.0); MEAN CORPUSCULAR HGB CONC 34.4 % (32.0-36.0); PLATELET COUNT 100 TH/MM3 (150-450); RED BLOOD COUNT 2.59 MIL/MM3 (4.50-5.90); RED CELL DISTRIBUTION WIDTH 26.3 % (11.6-17.2); WHITE BLOOD COUNT 7.9 TH/MM3 (4.0-11.0)
[2016-11-01 06:46] LABS: BICARBONATE 31.4 MEQ/L (21.0-32.0); POTASSIUM 4.1 MEQ/L (3.5-5.1)
[2016-11-01 06:52] LABS: REVIEW FLAG FINAL
[2016-11-01 06:54] LABS: FREE T3 0.67 PG/ML (2.18-3.98); FREE T4 1.17 NG/DL (0.76-1.46)
--- NOTE | 2016-11-01 08:14 | HHI.PR ---
Review/Management Daily Summary 11/01 stable eeg ok refusing mri but agreed to me this am spoke with rn Subjective Subjective Comments No acute events reported No headache No chest pain No dyspnea Active Medications Current Medications Medications (Trade) Dose Ordered Sig/Jacqueline Route Start Time Stop Time Status Last Admin (NS Flush) 2 ml BID IVF 10/28/16 21:00 10/31/16 22:06 (NS Flush) 2 ml UNSCH PRN IVF 10/28/16 13:00 10/28/16 13:54 (Decadron) 1 mg DAILY PO 10/29/16 09:00 10/31/16 09:45 (Lexapro) 10 mg DAILY PO 10/29/16 09:00 10/31/16 09:45 (Claritin) 10 mg DAILY PO 10/29/16 09:00 10/31/16 09:45 (Toprol Xl) 25 mg BID PO 10/28/16 21:00 10/31/16 22:06 (Roxicodone Intensol Liq) 5 mg Q4H PRN PO 10/28/16 13:15 10/31/16 19:49 (Flomax) 0.4 mg DAILY PO 10/29/16 09:00 10/31/16 09:45 (Spiriva Inh) 18 mcg DAILY INH 10/29/16 09:00 10/31/16 09:47 (Protonix) 20 mg DAILY PO 10/28/16 13:15 10/31/16 09:45 (Senokot) 17.2 mg BID PRN PO 10/28/16 13:15 10/29/16 12:52 (D50w (Vial) Inj) 25 ml UNSCH PRN IV PUSH 10/28/16 14:45 (Glucagon Inj) 1 mg UNSCH PRN OTHER 10/28/16 14:45 (KCl 40 Meq/30 ml Liq) 20 meq BID PO 10/28/16 22:00 10/31/16 22:06 (Synthroid) 112 mcg DAILY@06 PO 10/30/16 06:00 11/01/16 06:00 Sodium Biphosphate/ Sodium Phosphate 133 ml 133 ml UNSCH PRN MD 10/29/16 13:45 10/29/16 15:58 (NS 250 ml Inj) 250 ml @ 0 mls/hr UNSCH PRN IV 10/30/16 15:45 (Vitamin B1) 100 mg DAILY PO 10/31/16 13:00 10/31/16 13:58 (Folate) 1 mg DAILY PO 10/31/16 13:00 10/31/16 13:58 (Lasix) 20 mg DAILY PO 11/01/16 09:00 (Eliquis) 2.5 mg BID PO 10/31/16 21:00 10/31/16 22:06 Allergies Allergies Coded Allergies Contrast Media (Verified Allergy, Mild, Hives, 08/13/16) Iodine (Verified Allergy, Unknown, 09/22/16) Exam I&O / VS 10/31/16 10/31/16 11/01/16 15:00 23:00 07:00 Intake Total 50 ml 180 ml Output Total 150 ml Balance 50 ml 30 ml Intake Oral 50 ml 180 ml Output Urine Total 150 ml # Voids 1 1 Vital Signs Date Time Temp Pulse Resp B/P Pulse Ox O2 Delivery O2 Flow Rate FiO2 11/01/16 07:54 95 Nasal Cannula 3.50 11/01/16 05:24 96.9 88 17 102/56 94 11/01/16 01:50 97.2 87 17 102/56 93 11/01/16 01:20 96.8 89 18 99/52 94 11/01/16 00:58 95.6 85 18 99/56 94 11/01/16 00:21 96.8 82 17 98/55 95 10/31/16 23:00 78 10/31/16 22:00 Nasal Cannula 3.50 10/31/16 20:51 98.2 77 17 102/58 95 10/31/16 20:38 94 Nasal Cannula 3.50 10/31/16 16:02 96.4 88 20 94/54 95 10/31/16 11:55 96.1 87 20 101/53 95 10/31/16 10:41 82 10/31/16 09:56 Nasal Cannula 3.50 10/31/16 08:40 96.3 94 20 111/56 98 Objective Radiology Results Last 48 hours Impressions Chest X-Ray 10/31/16 0000 Signed Impressions: Service Date/Time: Monday, October 31, 2016 19:44 - CONCLUSION: Acute pulmonary congestion with small to moderate left pleural effusion and underlying left lower lobe airspace disease. Sohail Guevara MD Micro and Labs Laboratory Tests Test 10/31/16 10/31/16 11/01/16 20:13 20:16 06:00 Ammonia LESS THAN 10 Blood Type AB POSITIVE Antibody Screen NEGATIVE Crossmatch Leukocyte-Reduced Red Blood Cells Blood Bank Comment White Blood Count 7.9 Red Blood Count 2.59 Hemoglobin 8.7 Hematocrit 25.4 Mean Corpuscular Volume 98.4 Mean Corpuscular Hemoglobin 33.8 Mean Corpuscular Hemoglobin 34.4 Concent Red Cell Distribution Width 26.3 Platelet Count 100 Mean Platelet Volume 8.4 Sodium Level 139 Potassium Level 4.1 Chloride Level 100 Carbon Dioxide Level 31.4 Anion Gap 8 Blood Urea Nitrogen 40 Creatinine 1.42 Estimat Glomerular Filtration 50 Rate Random Glucose 129 Calcium Level 8.6 Free Thyroxine 1.17 Free Triiodothyronine (T3) 0.67 pg/dL Claudine Canas MD Nov 01, 2016 08:14
[2016-11-01] MEDS ORDERED: FUROSEMIDE 20 MG TAB PO SCH (09:00)
[2016-11-01] MEDS: SODIUM CHLORIDE 0.9% FLUSH 5 ML FLUSH IVF SCH (09:00)
[2016-11-01] MEDS: TIOTROPIUM BROMIDE 18 MCG INH INH SCH (09:00)
[2016-11-01] MEDS: METOPROLOL SUCCINATE 25 MG EXTENDED RELEASE TAB PO SCH (09:00)
[2016-11-01] MEDS: oxyCODONE HCL ORAL CONC 20 MG/ML SYRINGE PO PRN ×3 (09:19→18:43)
[2016-11-01] MEDS: THIAMINE HCL 100 MG TAB PO SCH (09:20)
[2016-11-01] MEDS: ESCITALOPRAM OXALATE 10 MG TAB PO SCH (09:20)
[2016-11-01] MEDS: POTASSIUM CL 40 MEQ/30 ML LIQ UDC PO SCH (09:20)
[2016-11-01] MEDS: APIXABAN 2.5 MG TABLET PO SCH (09:20)
[2016-11-01] MEDS: TAMSULOSIN HCL 0.4 MG CAP PO SCH (09:20)
[2016-11-01] MEDS: FOLIC ACID 1 MG TAB PO SCH (09:20)
[2016-11-01] MEDS: PANTOPRAZOLE SOD 20 MG DELAYED RELEASE TAB PO SCH (09:20)
[2016-11-01] MEDS: LORATADINE 10 MG TAB PO SCH (09:21)
[2016-11-01] MEDS: DEXAMETHASONE 0.5 MG TAB PO SCH (09:22)
--- NOTE | 2016-11-01 09:32 | HHI.PR ---
Subjective Remarks The patient was resting comfortably in bed. He was confused. He was having trouble swallowing pills. He complained of constipation. He said he was feeling weak. He was having diffuse pain. Discussed with nursing. Objective Vitals Vital Signs Date Time Temp Pulse Resp B/P Pulse Ox O2 Delivery O2 Flow Rate FiO2 11/01/16 08:19 98.1 98 20 94/52 92 11/01/16 07:54 95 Nasal Cannula 3.50 11/01/16 05:24 96.9 88 17 102/56 94 11/01/16 01:50 97.2 87 17 102/56 93 11/01/16 01:20 96.8 89 18 99/52 94 11/01/16 00:58 95.6 85 18 99/56 94 11/01/16 00:21 96.8 82 17 98/55 95 10/31/16 23:00 78 10/31/16 22:00 Nasal Cannula 3.50 10/31/16 20:51 98.2 77 17 102/58 95 10/31/16 20:38 94 Nasal Cannula 3.50 10/31/16 16:02 96.4 88 20 94/54 95 10/31/16 11:55 96.1 87 20 101/53 95 10/31/16 10:41 82 10/31/16 09:56 Nasal Cannula 3.50 I/O 10/31/16 10/31/16 10/31/16 11/01/16 11/01/16 11/01/16 07:00 15:00 23:00 07:00 15:00 23:00 Intake Total 180 ml 50 ml 180 ml Output Total 350 ml 150 ml Balance -170 ml 50 ml 30 ml Intake Oral 180 ml 50 ml 180 ml Output Urine Total 350 ml 150 ml # Voids 1 1 Result Diagram: 11/01/16 0600 11/01/16 0600 Imaging Last Impressions Chest X-Ray 10/31/16 0000 Signed Impressions: Service Date/Time: Monday, October 31, 2016 19:44 - CONCLUSION: Acute pulmonary congestion with small to moderate left pleural effusion and underlying left lower lobe airspace disease. Sohail Guevara MD Upper Extremity Ultrasound 10/29/16 0000 Signed Impressions: Service Date/Time: Saturday, October 29, 2016 08:42 - CONCLUSION: Occlusive deep vein thrombosis of the right internal jugular vein and subclavian vein. Vamsi Norman MD ADDENDUM: No significant interval change from prior study a [facility] of 10/17/2016. Vamsi Norman MD Lower Extremity Ultrasound 10/29/16 0000 Signed Impressions: Service Date/Time: Friday, October 28, 2016 22:13 - CONCLUSION: No evidence of lower extremity DVT on the right or left. Vamsi Norman MD Objective Remarks GENERAL: Obese male in no acute distress. HEAD: Atraumatic. Normocephalic. EYES: Pupils equal round and reactive. ENT: Nose without drainage Uvula midline. Airway patent. NECK: Trachea midline. Swelling on the right side of the neck is unchanged. Mild tenderness to palpation. CARDIOVASCULAR: Irregularly irregular rhythm without murmurs, gallops, or rubs. RESPIRATORY: Respiratory effort is poor. No wheezing. MUSCULOSKELETAL: 1+ bilateral lower extremity edema. NEUROLOGICAL: Lethargic, can say yes and no but not able to have a conversation. He can follow some commands and move all extremities but very weak. PSYCH: Flattened affect. Medications and IVs Current Medications Medications (Trade) Dose Ordered Sig/Jacqueline Route Start Time Stop Time Status Last Admin (NS Flush) 2 ml BID IVF 10/28/16 21:00 10/31/16 22:06 (NS Flush) 2 ml UNSCH PRN IVF 10/28/16 13:00 10/28/16 13:54 (Decadron) 1 mg DAILY PO 10/29/16 09:00 10/31/16 09:45 (Lexapro) 10 mg DAILY PO 10/29/16 09:00 10/31/16 09:45 (Claritin) 10 mg DAILY PO 10/29/16 09:00 10/31/16 09:45 (Toprol Xl) 25 mg BID PO 10/28/16 21:00 10/31/16 22:06 (Roxicodone Intensol Liq) 5 mg Q4H PRN PO 10/28/16 13:15 10/31/16 19:49 (Flomax) 0.4 mg DAILY PO 10/29/16 09:00 10/31/16 09:45 (Spiriva Inh) 18 mcg DAILY INH 10/29/16 09:00 10/31/16 09:47 (Protonix) 20 mg DAILY PO 10/28/16 13:15 10/31/16 09:45 (Senokot) 17.2 mg BID PRN PO 10/28/16 13:15 10/29/16 12:52 (D50w (Vial) Inj) 25 ml UNSCH PRN IV PUSH 10/28/16 14:45 (Glucagon Inj) 1 mg UNSCH PRN OTHER 10/28/16 14:45 (KCl 40 Meq/30 ml Liq) 20 meq BID PO 10/28/16 22:00 10/31/16 22:06 (Synthroid) 112 mcg DAILY@06 PO 10/30/16 06:00 11/01/16 06:00 Sodium Biphosphate/ Sodium Phosphate 133 ml 133 ml UNSCH PRN [place] 10/29/16 13:45 10/29/16 15:58 (NS 250 ml Inj) 250 ml @ 0 mls/hr UNSCH PRN IV 10/30/16 15:45 (Vitamin B1) 100 mg DAILY PO 10/31/16 13:00 10/31/16 13:58 (Folate) 1 mg DAILY PO 10/31/16 13:00 10/31/16 13:58 (Lasix) 20 mg DAILY PO 11/01/16 09:00 (Eliquis) 2.5 mg BID PO 10/31/16 21:00 10/31/16 22:06 A/P Problem List: (1) Fluid overload ICD Code: E87.70 Status: Acute (2) Hypoxia ICD Code: R09.02 Status: Acute (3) Physical deconditioning ICD Code: R53.81 Status: Acute (4) History of squamous cell carcinoma ICD Code: Z85.89 Status: Chronic (5) History of atrial fibrillation ICD Code: Z86.79 Status: Acute (6) Neck malignant neoplasm ICD Code: C76.0 Status: Acute (7) Type 2 diabetes mellitus ICD Code: E11.9 Status: Chronic (8) COPD (chronic obstructive pulmonary disease) ICD Code: J44.9 Status: Acute (9) History of coronary artery disease ICD Code: Z86.79 (10) Hypothyroidism ICD Code: E03.9 Status: Chronic (11) Systolic CHF, acute on chronic ICD Code: I50.23 Status: Acute Assessment and Plan 66-year-old male with multiple comorbid conditions undergoing treatment for 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 The patient has been accumulating fluid in his bilateral lower extremities prior to admission. Outside chest x-ray concerning for pulmonary edema. He did not respond to oral Lasix. He was found to be hypoxemic in the oncology clinic. He was admitted for further evaluation and treatment. The patient appears to have a declining course due to his cancer. Today he is more encephalopathic with worsening lethargy and confusions Acute encephalopathy Worsening Lethargy and confusion. May be part of overall worsening decline from cancer burden and comorbidities. Recent history of myxedema coma. Eliquis was held due to bleeding. Will need to rule out stroke. DW Dr. Urrutia, no prior evidence of [employer] metastasis but that is also a possibility. DW with the patients daughter, Dr. Scherer, who inquired about EEG and neuro consult to help them better understand prognosis. EEG unremarkable. - Will obtain MRI. Patient has been uncooperative so far. - Neuro checks. - neurology consult appreciated. Acute on chronic systolic CHF 2-D echo shows LVEF of 30-35%. Currently requiring supplemental oxygen. CXR with congestion. - Appreciate cardiology following. Responded well to IV Lasix until BP became too low. Resume PO Lasix. - Continue supplemental oxygen. - Follow Is and Os. 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 Patient undergoing palliative chemotherapy and radiation. Experiencing significant back pain. Seems to be having difficulty swallowing. - Dr. Urrutia following. Concern for progression. Palliative care consult appreciated. - Patient has been on Cetuximab. On dexamethasone and Oxycodone. - swallow evaluation. Atrial fibrillation, CAD, hypertension Cardiology following. HR controlled, BP low. - Continue metoprolol with holding parameters. - Eliquis on hold. Chronic renal insufficiency Appear to be stable. - Caution with diuretics. Monitor BMP. Jugular vein thrombosis The patient was started on Eliquis. DW radiologist who compared the repeat US. It is the same compared to the the study on Oct 17. Hematology following as above. - Eliquis on hold secondary to bleeding from the port site. Follow up with hematology. Hypothyroidism With recent myxedema coma about a month and half ago. He is responding to Synthroid. Per discussion with his daugther, Dr. Scherer, he did better on 112 mcg. - continue 112 mcg. COPD Chronic. - Continue home dose inhalers. Supplemental oxygen as needed. Type 2 diabetes Relatively well controlled. - Hold oral hypoglycemic agent. Sliding scale insulin with Accu-Cheks. Sacral pressure ulcer Present on admission. Patient is sedentary at home. - Frequent turning. Dressing per nursing. DVT PPx: On Eliquis. Discharge Planning Awaiting clinical improvement. Berhane Henderson DO Nov 01, 2016 09:31
--- NOTE | 2016-11-01 09:39 | PD.ONC.PN ---
Subjective Subjective Remarks Afebrile overnight. Patient being washed up by [employer]. No bleeding at port site. Tolerating Eliquis. Has not been seen by hospice yet today. Objective Data Date Time Temp Pulse Resp B/P Pulse Ox O2 Delivery O2 Flow Rate FiO2 11/01/16 08:19 98.1 98 20 94/52 92 11/01/16 07:54 95 Nasal Cannula 3.50 11/01/16 05:24 96.9 88 17 102/56 94 11/01/16 01:50 97.2 87 17 102/56 93 11/01/16 01:20 96.8 89 18 99/52 94 11/01/16 00:58 95.6 85 18 99/56 94 11/01/16 00:21 96.8 82 17 98/55 95 10/31/16 23:00 78 10/31/16 22:00 Nasal Cannula 3.50 10/31/16 20:51 98.2 77 17 102/58 95 10/31/16 20:38 94 Nasal Cannula 3.50 10/31/16 16:02 96.4 88 20 94/54 95 10/31/16 11:55 96.1 87 20 101/53 95 10/31/16 10:41 82 10/31/16 09:56 Nasal Cannula 3.50 11/01/16 11/01/16 11/01/16 07:00 15:00 23:00 Intake Total 180 ml Output Total 150 ml Balance 30 ml Result Diagram: 11/01/16 0600 11/01/16 0600 Laboratory Results Laboratory Tests Test 10/31/16 10/31/16 11/01/16 20:13 20:16 06:00 Ammonia LESS THAN 10 MCMOL/L Blood Type AB POSITIVE Antibody Screen NEGATIVE Crossmatch Leukocyte-Reduced Red Blood Cells Blood Bank Comment White Blood Count 7.9 TH/MM3 Red Blood Count 2.59 MIL/MM3 Hemoglobin 8.7 GM/DL Hematocrit 25.4 % Mean Corpuscular Volume 98.4 FL Mean Corpuscular Hemoglobin 33.8 PG Mean Corpuscular Hemoglobin 34.4 % Concent Red Cell Distribution Width 26.3 % Platelet Count 100 TH/MM3 Mean Platelet Volume 8.4 FL Sodium Level 139 MEQ/L Potassium Level 4.1 MEQ/L Chloride Level 100 MEQ/L Carbon Dioxide Level 31.4 MEQ/L Anion Gap 8 MEQ/L Blood Urea Nitrogen 40 MG/DL Creatinine 1.42 MG/DL Estimat Glomerular Filtration 50 ML/MIN Rate Random Glucose 129 MG/DL Calcium Level 8.6 MG/DL Free Thyroxine 1.17 NG/DL Free Triiodothyronine (T3) 0.67 PG/ML pg/dL Administered Medications Medications (Trade) Dose Ordered Sig/Jacqueline Route PRN Reason Start Time Stop Time Status Last Admin Dose Admin IV Flush (NS Flush) 2 ml BID IVF 10/28/16 21:00 10/31/16 22:06 IV Flush (NS Flush) 2 ml UNSCH PRN IVF FLUSH AFTER USING IV ACCESS 10/28/16 13:00 10/28/16 13:54 Dexamethasone (Decadron) 1 mg DAILY PO 10/29/16 09:00 10/31/16 09:45 Escitalopram Oxalate (Lexapro) 10 mg DAILY PO 10/29/16 09:00 10/31/16 09:45 Loratadine (Claritin) 10 mg DAILY PO 10/29/16 09:00 10/31/16 09:45 Metoprolol Succinate (Toprol Xl) 25 mg BID PO 10/28/16 21:00 10/31/16 22:06 Oxycodone HCl (Roxicodone Intensol Liq) 5 mg Q4H PRN PO PAIN 1-10 10/28/16 13:15 10/31/16 19:49 Tamsulosin HCl (Flomax) 0.4 mg DAILY PO 10/29/16 09:00 10/31/16 09:45 Tiotropium [place] (Spiriva Inh) 18 mcg DAILY INH 10/29/16 09:00 10/31/16 09:47 Pantoprazole Sodium (Protonix) 20 mg DAILY PO 10/28/16 13:15 10/31/16 09:45 Sennosides (Senokot) 17.2 mg BID PRN PO CONSTIPATION 10/28/16 13:15 10/29/16 12:52 Potassium Chloride (KCl 40 Meq/30 ml Liq) 20 meq BID PO 10/28/16 22:00 10/31/16 22:06 Levothyroxine Sodium (Synthroid) 112 mcg DAILY@06 PO 10/30/16 06:00 11/01/16 06:00 Sodium Biphosphate/ Sodium Phosphate (Fleets Enema (Adult)) 133 ml UNSCH PRN [place] CONSTIPATION 10/29/16 13:45 10/29/16 15:58 Thiamine HCl (Vitamin B1) 100 mg DAILY PO 10/31/16 13:00 10/31/16 13:58 Folic Acid (Folate) 1 mg DAILY PO 10/31/16 13:00 10/31/16 13:58 Apixaban (Eliquis) 2.5 mg BID PO 10/31/16 21:00 10/31/16 22:06 Objective Remarks GENERAL: Middle aged male, sitting upright in bed SKIN: Warm and dry. HEAD: Normocephalic. EYES: No injection or drainage. NECK: Supple, trachea midline. CARDIOVASCULAR: +S1/S2 RESPIRATORY: anterior alvarez clear. GASTROINTESTINAL: Abdomen soft, non-tender, nondistended. EXTREMITIES: No cyanosis. moderate edema, BLE MUSCULOSKELETAL: Adequate muscle tone. NEUROLOGICAL: awake and alert. normal speech. moving extremities. Assessment/Plan Problem List: (1) Thrombosis Status: Acute Plan: -- RUE DVT of the R IJ and SC vein. -- Per radiologist this is unchanged from prior study. -- Currently on Eliquis 2.5mg PO BID (2) History of squamous cell carcinoma Status: Chronic Plan: -- plan to continue with Cetuximab once able to follow up in clinic. (3) Fluid overload Status: Acute Plan: -- improved after treatment with lasix Assessment 66 y/o male with a history of head and neck cancer admitted with SOB and fluid overload. Plan 1. continue low dose Eliquis 2. monitor CBC, monitor port site for bleeding 3. await hospice consult today. 4. patient could be discharged from an oncology/hematology perspective Nadya Larios Nov 01, 2016 09:39
[2016-11-01] MEDS ORDERED: TRANSPORT CHAIR1 MIS (11:57)
[2016-11-01] MEDS ORDERED: SYNT112T PO (15:42)
--- NOTE | 2016-11-01 15:43 | HHI.DCPOC ---
Discharge Care Plan Diagnosis: (1) Altered mental status (2) Encephalopathy (3) Generalized weakness (4) Debility (5) History of squamous cell carcinoma (6) Neck malignant neoplasm (7) Thrombosis (8) Physical deconditioning (9) Hypothyroidism (10) Diabetes mellitus, type 2 Goals to Promote Your Health * To prevent worsening of your condition and complications * To maintain your health at the optimal level Directions to Meet Your Goals Take your medications as prescribed Follow your dietary instruction Follow activity as directed Keep your appointments as scheduled Take your immunizations and boosters as scheduled If your symptoms worsen call your PCP, if no PCP go to Urgent Care Center or Emergency Room Smoking is Dangerous to Your Health. Avoid second hand smoke Call the 24-hour hour crisis hotline for domestic abuse at Berhane Henderson DO Nov 01, 2016 15:43
--- NOTE | 2016-11-01 15:48 | HHI.HCPN ---
Reason for visit a. To assist with evaluation and management of symptoms including: Pain and generalize debility. b. To assist medical decision maker(s) with: better understanding of current medical conditions; weighing benefits/burdens of medical treatment options; making medical treatment decisions. . Subjective/Interval History Patient seen in his room. Patient alert to self, sleepy. Opening eyes to verbal and tactile stimuli. Answering some questions and following some commands. Patient endorsing low back pain but unable to allow origin details. Denies shortness of breath. Patient remains encephalopathic, EEG obtained yesterday and is unremarkable. Worsening lethargy and confusion. Patient afebrile, stable BP with SBP in the 90s. Tolerating O2 via nasal cannula at 3.5 L. Neurology -Dr. Canas consulted for evaluation of lethargy. MRI of brain was ordered, still pending. Was evaluated by speech therapy today, recommended a mechanical soft diet with nectar consistency thickened liquids. Laboratory today WBC 7.9, Hgb 8.7, platelets 100. Sodium 139, potassium 4.1, BUN/creatinine 40/1.42. Free T4 1 0.17, free T3 0.67. . Family/friend interactions Spoke with patient's Misha Joiner and patient's daughter Ana M. They report that after further discussion with oncology -Dr. Urrutia as well as attending, family has decided to transition patient to comfort directed care with hospice. Family wishing for patient to be transferred to hospice care center for symptom management of pain, shortness of breath and debility. Goal is to discharge home with hospice once her symptoms are controlled. Family electing to change CODE STATUS to no code-DNR/DNI. Family in the process of signing hospice services, salon professional at bedside. All questions have been answering great detail. . Advance Directives Living Will: Completed, but not made available Health Care Surrogate: Copy in medical record Durable Power of Tetryl Blender Operator: Never completed Advance Directive Specifics Date completed: 03/02/2015. . Health Care Surrogate(s): Misha Joiner -spouse and Ana M Scherer -daughter are listed as the designated joint surrogates. Documented care wishes: Pending copy of living will. Significant change in goals: No code. DNR/DNI. Transition patient to comfort directed care given his poor prognosis. . Objective Vital Signs Date Time Temp Pulse Resp B/P Pulse Ox O2 Delivery O2 Flow Rate FiO2 11/01/16 14:20 89 11/01/16 12:38 96.7 86 22 91/56 93 11/01/16 12:13 Nasal Cannula 3.50 11/01/16 08:19 98.1 98 20 94/52 92 11/01/16 07:54 95 Nasal Cannula 3.50 11/01/16 05:24 96.9 88 17 102/56 94 11/01/16 01:50 97.2 87 17 102/56 93 11/01/16 01:20 96.8 89 18 99/52 94 11/01/16 00:58 95.6 85 18 99/56 94 11/01/16 00:21 96.8 82 17 98/55 95 10/31/16 23:00 78 10/31/16 22:00 Nasal Cannula 3.50 10/31/16 20:51 98.2 77 17 102/58 95 10/31/16 20:38 94 Nasal Cannula 3.50 10/31/16 16:02 96.4 88 20 94/54 95 Intake & Output 11/01/16 11/01/16 07:00 19:00 Intake Total 180 ml Output Total 150 ml Balance 30 ml Intake Oral 180 ml Output Urine Total 150 ml # Voids 1 Physical Exam CONSTITUTIONAL/GENERAL: This is an adequately nourished patient, in no apparent distress. Lethargic, briefly opening eyes to voice. Verbal but not always communicate needs secondary to confusion and lethargy. TUBES/LINES/DRAINS: Nasal cannula, PIV's SKIN: No jaundice, rashes, or lesions. Ecchymoses on upper extremities. No wounds seen anteriorly. Skin temperature appropriate. Not diaphoretic. HEAD: Atraumatic. Normocephalic. EYES: Pupils equal and round and reactive. ENT: Hearing appears normal. Nose without bleeding or purulent drainage. Dry lips. NECK: Trachea midline. Supple, nontender. CARDIOVASCULAR: irregular rate and rhythm without murmurs, gallops, or rubs. No JVD. Peripheral pulses symmetric. Trace edema to bilateral lower extremities. RESPIRATORY/CHEST: Symmetric, unlabored respirations. Fine crackles bilaterally. GASTROINTESTINAL: Abdomen soft, large, round. Mild tenderness on palpation. Bowel sounds present. GENITOURINARY: Without palpable bladder distension. MUSCULOSKELETAL: Extremities without clubbing, cyanosis. NEUROLOGICAL: Sleepy, lethargic. Briefly opening eyes to voice. Verbal, intermittent confusion. Following some commands. PSYCHIATRIC: Appears calm. . Diagnostic Tests Laboratory Laboratory Tests Test 10/30/16 10/31/16 10/31/16 10/31/16 05:55 05:36 20:13 20:16 White Blood Count 6.7 TH/MM3 7.0 TH/MM3 (4.0-11.0) (4.0-11.0) Red Blood Count 2.23 MIL/MM3 2.23 MIL/MM3 (4.50-5.90) (4.50-5.90) Hemoglobin 8.1 GM/DL 7.9 GM/DL (13.0-17.0) (13.0-17.0) Hematocrit 23.0 % 23.2 % (39.0-51.0) (39.0-51.0) Mean Corpuscular Volume 103.1 FL 103.7 FL (80.0-100.0) (80.0-100.0) Mean Corpuscular Hemoglobin 36.5 PG 35.4 PG (27.0-34.0) (27.0-34.0) Mean Corpuscular Hemoglobin 35.4 % 34.1 % Concent (32.0-36.0) (32.0-36.0) Red Cell Distribution Width 21.4 % 20.8 % (11.6-17.2) (11.6-17.2) Platelet Count 96 TH/MM3 90 TH/MM3 (150-450) (150-450) Mean Platelet Volume 8.9 FL 8.6 FL (7.0-11.0) (7.0-11.0) Sodium Level 136 MEQ/L 139 MEQ/L (136-145) (136-145) Potassium Level 3.9 MEQ/L 3.8 MEQ/L (3.5-5.1) (3.5-5.1) Chloride Level 95 MEQ/L 100 MEQ/L (98-107) (98-107) Carbon Dioxide Level 32.6 MEQ/L 29.9 MEQ/L (21.0-32.0) (21.0-32.0) Anion Gap 8 MEQ/L (5-15) 9 MEQ/L (5-15) Blood Urea Nitrogen 38 MG/DL (7-18) 39 MG/DL (7-18) Creatinine 1.26 MG/DL 1.29 MG/DL (0.60-1.30) (0.60-1.30) Estimat Glomerular Filtration 57 ML/MIN (>89) 56 ML/MIN (>89) Rate Random Glucose 122 MG/DL 124 MG/DL (74-106) (74-106) Calcium Level 8.3 MG/DL 8.5 MG/DL (8.5-10.1) (8.5-10.1) Total Bilirubin 0.5 MG/DL (0.2-1.0) Direct Bilirubin 0.2 MG/DL (0.0-0.2) Indirect Bilirubin 0.3 MG/DL (0.0-0.8) Aspartate Amino Transf 45 U/L (15-37) (AST/SGOT) Alanine Aminotransferase 21 U/L (12-78) (ALT/SGPT) Alkaline Phosphatase 112 U/L (45-117) Total Protein 5.2 GM/DL (6.4-8.2) Albumin 1.9 GM/DL (3.4-5.0) Ammonia LESS THAN 10 MCMOL/L (11-32) Blood Type AB POSITIVE Antibody Screen NEGATIVE Crossmatch Leukocyte-Reduced Red Blood Cells Blood Bank Comment Test 11/01/16 06:00 White Blood Count 7.9 TH/MM3 (4.0-11.0) Red Blood Count 2.59 MIL/MM3 (4.50-5.90) Hemoglobin 8.7 GM/DL (13.0-17.0) Hematocrit 25.4 % (39.0-51.0) Mean Corpuscular Volume 98.4 FL (80.0-100.0) Mean Corpuscular Hemoglobin 33.8 PG (27.0-34.0) Mean Corpuscular Hemoglobin 34.4 % Concent (32.0-36.0) Red Cell Distribution Width 26.3 % (11.6-17.2) Platelet Count 100 TH/MM3 (150-450) Mean Platelet Volume 8.4 FL (7.0-11.0) Sodium Level 139 MEQ/L (136-145) Potassium Level 4.1 MEQ/L (3.5-5.1) Chloride Level 100 MEQ/L (98-107) Carbon Dioxide Level 31.4 MEQ/L (21.0-32.0) Anion Gap 8 MEQ/L (5-15) Blood Urea Nitrogen 40 MG/DL (7-18) Creatinine 1.42 MG/DL (0.60-1.30) Estimat Glomerular Filtration 50 ML/MIN (>89) Rate Random Glucose 129 MG/DL (74-106) Calcium Level 8.6 MG/DL (8.5-10.1) Free Thyroxine 1.17 NG/DL (0.76-1.46) Free Triiodothyronine (T3) 0.67 PG/ML pg/dL (2.18-3.98) Result Diagram: 11/01/16 0600 11/01/16 0600 Imaging Last Impressions Chest X-Ray 10/31/16 0000 Signed Impressions: Service Date/Time: Monday, October 31, 2016 19:44 - CONCLUSION: Acute pulmonary congestion with small to moderate left pleural effusion and underlying left lower lobe airspace disease. Sohail Guevara MD Upper Extremity Ultrasound 10/29/16 0000 Signed Impressions: Service Date/Time: Saturday, October 29, 2016 08:42 - CONCLUSION: Occlusive deep vein thrombosis of the right internal jugular vein and subclavian vein. Vamsi Norman MD ADDENDUM: No significant interval change from prior study a [facility] of 10/17/2016. Vamsi Noramn MD Lower Extremity Ultrasound 10/29/16 0000 Signed Impressions: Service Date/Time: Friday, October 28, 2016 22:13 - CONCLUSION: No evidence of lower extremity DVT on the right or left. Vamsi Norman MD Procedures Assessment and Plan Disease Oriented Problem List: (1) Systolic CHF, acute on chronic (2) Neck malignant neoplasm (3) Pulmonary edema (4) Physical deconditioning Symptom Scale: (1) Pain 0-10 Scale: Unable to quantify Comment: Secondary to burden of disease. (2) Debility 0-10 Scale: Unable to quantify Comment: Progressive secondary to burden of disease, multiple comorbidities, and recent hospitalization. Pertinent Non-Medical Issues Psychosocial: . Has 2 children. Spiritual: Nondenominational. Legal: Living well and healthcare surrogate designation completed. Ethical issues impacting care: No ethical legal issues have been identified. . Important Contacts Daughter Ana M Scherer . misha Joiner [phone]. . Prognosis Mr. Joiner is a 66-year-old male with a past medical history significant for metastatic head/neck cancer that has continued to progress in spite of multiple treatments. Patient with multiple recent hospitalizations and continue functional decline. Unclear if patient at this point and will be a candidate for further systemic therapy. Patient is very high risk for further decline, complications and given her progression of disease, profound physical deconditioning, and multiple comorbidities. Very poor prognosis for an improved quality of life. . Code Status: No Code Plan * CODE STATUS: No code. DNR/DNI. Allow natural . * MEDICAL DECISION-MAKING: Patient incapacitated at this time secondary to clinical condition, confused and lethargic. Patient's Misha Joiner and daughter Ana M Scherer as HCS. * GOALS OF CARE: Family has elected to transition patient to comfort directed care with hospice given patient's increased symptoms burden and very poor prognosis. Family wishing for patient to be transferred to hospice care center for symptom management of pain, shortness of breath and debility. Goal is to discharge home with hospice services once his symptoms are managed. Family electing to change CODE STATUS to no code-DNR/DNI at this time. Family in the process of signing hospice services, salon professional at bedside. * SYMPTOMS: ==Pain, secondary to burden of disease/lumbar metastatic disease. Home regimen of oxycodone 15 mg as needed, they has recently been increase. Currently on oxycodone 5 mg every 4 hours as needed. Endorsing increased pain this morning. Pending discharge to hospice care center for adjustment of pain medications. == Debility, multifactorial. Secondary to burden of disease, recent acute hospitalization, and treatment. Likely to continue worsening. == Shortness of breath, tolerating O2 via nasal cannula. Pending transfer to hospice care center for symptom management. Family to bring CPAP machine to care center. * Case discussed with Saskia -salon professional. * Palliative care contact information has been provided to family. * Anticipatory guidance provided. . Time Spent Total Floor Time (mins): 32 (Total time to include review medical records, physical exam, discussion with patient's family and case discussion with salon professional.) >50% Counseling/Coord of Care: Yes Attestation To help prompt me to consider important information that might be impacting today's encounter and assessment, information from prior notes written by myself or my colleagues may have been "brought forward" into today's note. My signature on this note, however, is an attestation that I personally performed the exam, history, and/or decision-making noted today, and, unless otherwise indicated, the interactions with patient, family, and staff as well as the review of records all occurred today. I also attest that the listed assessment and stated plan reflect my best clinical judgment today based on the combination of historical information, prior notes, and today's exam/ interactions. When time spent is documented, it refers only to time spent today by the signer, or if indicated, combined time spent today by collaborating physician/nurse practitioner. Mariel Canales Nov 01, 2016 15:48
--- NOTE | 2016-11-01 18:00 | HHI.DS ---
Discharge Summary Admission Date Oct 28, 2016 at 11:53 Discharge Date: Nov 01, 2016 Admitting Diagnosis (1) Fluid overload ICD Code: E87.70 (2) Hypoxia ICD Code: R09.02 (3) Physical deconditioning ICD Code: R53.81 Diagnosis: Principal (4) History of squamous cell carcinoma ICD Code: Z85.89 (5) History of atrial fibrillation ICD Code: Z86.79 (6) Neck malignant neoplasm ICD Code: C76.0 (7) Type 2 diabetes mellitus ICD Code: E11.9 (8) COPD (chronic obstructive pulmonary disease) ICD Code: J44.9 (9) History of coronary artery disease ICD Code: Z86.79 (10) Hypothyroidism ICD Code: E03.9 (11) Systolic CHF, acute on chronic ICD Code: I50.23 (12) Altered mental status ICD Code: R41.82 Diagnosis: Principal (13) Encephalopathy ICD Code: G93.40 Diagnosis: Principal Procedures None. Brief History - From Admission 66-year-old male with multiple comorbid conditions including metastatic squamous cell cancer, atrial fibrillation, CAD, hypothyroidism, hypertension, chronic renal insufficiency, COPD, type 2 diabetes, jugular vein thrombosis. The patient was sent to the hospital from the oncology clinic where he was found to be hypoxemic with oxygen saturation in the 80s on room air. According to the patient and his , he has been having increasing lower extremity swelling and difficulty with breathing for the past 2 weeks. He presented to his primary care physician earlier this week. A chest x-ray revealed some pulmonary edema and Lasix was increased to 40 mg twice a day. However he continues to get worse. Given the hypoxemia noted in the clinic today, he was given 20 mg of IV Lasix and admitted to the hospital for further workup and treatment. The patient's also report that he has been having episodes of confusions especially in the morning. The patient does not remember these episodes. He denies any chest pain. No nausea or vomiting. CBC/BMP: 11/01/16 0600 11/01/16 0600 Significant Findings Laboratory Tests Test 10/30/16 10/31/16 10/31/1628/17 05:55 05:36 20:13 06:00 Red Blood Count 2.23 MIL/MM3 2.23 MIL/MM3 2.59 MIL/MM3 (4.50-5.90) (4.50-5.90) (4.50-5.90) Hemoglobin 8.1 GM/DL 7.9 GM/DL 8.7 GM/DL (13.0-17.0) (13.0-17.0) (13.0-17.0) Hematocrit 23.0 % 23.2 % 25.4 % (39.0-51.0) (39.0-51.0) (39.0-51.0) Mean Corpuscular Volume 103.1 FL 103.7 FL (80.0-100.0) (80.0-100.0) Mean Corpuscular Hemoglobin 36.5 PG 35.4 PG (27.0-34.0) (27.0-34.0) Red Cell Distribution Width 21.4 % 20.8 % 26.3 % (11.6-17.2) (11.6-17.2) (11.6-17.2) Platelet Count 96 TH/MM3 90 TH/MM3 100 TH/MM3 (150-450) (150-450) (150-450) Chloride Level 95 MEQ/L (98-107) Carbon Dioxide Level 32.6 MEQ/L (21.0-32.0) Blood Urea Nitrogen 38 MG/DL (7-18) 39 MG/DL (7-18) 40 MG/DL (7-18) Estimat Glomerular Filtration 57 ML/MIN (>89) 56 ML/MIN (>89) 50 ML/MIN (>89) Rate Random Glucose 122 MG/DL 124 MG/DL 129 MG/DL (74-106) (74-106) (74-106) Calcium Level 8.3 MG/DL (8.5-10.1) Aspartate Amino Transf 45 U/L (15-37) (AST/SGOT) Total Protein 5.2 GM/DL (6.4-8.2) Albumin 1.9 GM/DL (3.4-5.0) Ammonia LESS THAN 10 MCMOL/L (11-32) Creatinine 1.42 MG/DL (0.60-1.30) Free Triiodothyronine (T3) 0.67 PG/ML pg/dL (2.18-3.98) Imaging Last Impressions Chest X-Ray 10/31/16 0000 Signed Impressions: Service Date/Time: Monday, October 31, 2016 19:44 - CONCLUSION: Acute pulmonary congestion with small to moderate left pleural effusion and underlying left lower lobe airspace disease. Sohail Guevara MD Upper Extremity Ultrasound 10/29/16 0000 Signed Impressions: Service Date/Time: Saturday, October 29, 2016 08:42 - CONCLUSION: Occlusive deep vein thrombosis of the right internal jugular vein and subclavian vein. Vamsi Norman MD ADDENDUM: No significant interval change from prior study a [facility] of 10/17/2016. Vamsi Norman MD Lower Extremity Ultrasound 10/29/16 0000 Signed Impressions: Service Date/Time: Friday, October 28, 2016 22:13 - CONCLUSION: No evidence of lower extremity DVT on the right or left. Vamsi Norman MD PE at Discharge GENERAL: Obese male in no acute distress. HEAD: Atraumatic. Normocephalic. EYES: Pupils equal round and reactive. ENT: Nose without drainage Uvula midline. Airway patent. NECK: Trachea midline. Swelling on the right side of the neck is unchanged. Mild tenderness to palpation. CARDIOVASCULAR: Irregularly irregular rhythm without murmurs, gallops, or rubs. RESPIRATORY: Respiratory effort is poor. No wheezing. MUSCULOSKELETAL: 1+ bilateral lower extremity edema. NEUROLOGICAL: Lethargic, can say yes and no but not able to have a conversation. He can follow some commands and move all extremities but very weak. PSYCH: Flattened affect. 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 The patient has been accumulating fluid in his bilateral lower extremities prior to admission. Outside chest x-ray concerning for pulmonary edema. He did not respond to oral Lasix. He was found to be hypoxemic in the oncology clinic. He was admitted for further evaluation and treatment. The patient appears to have a declining course due to his cancer. Has been encephalopathic with worsening lethargy and confusions. Acute encephalopathy Recent history of myxedema coma. EEG unremarkable. MRI ordered but pt uncooperative. Neurology consult appreciated. He was placed on neuro checks. Palliative care was consulted and hospice was eventually consulted. The pt's family agreed for discharge to the hospice care [facility]. Acute on chronic systolic CHF 2-D echo shows LVEF of 30-35%. Currently requiring supplemental oxygen. CXR with congestion. Cardiology was consulted. The pt was diuresed. 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 Patient undergoing palliative chemotherapy and radiation. Experiencing significant back pain. Oncology was consulted. He was placed on dexamethasone and Oxycodone. He will be discharged to hospice. Atrial fibrillation, CAD, hypertension Cardiology following. HR controlled, BP low. He was continued on his home metoprolol with holding parameters. Eliquis was resumed at a lower dose. Jugular vein thrombosis The patient was started on Eliquis. Hypothyroidism With recent myxedema coma about a month and half ago. He is responding to Synthroid. He will continue levothyroxine. Pt Condition on Discharge: Stable Discharge Disposition: Hospice/Med Facility Discharge Time: > 30 minutes Discharge Instructions DIET: Follow Instructions for: As Tolerated, No Restrictions Speech Therapy-Diet Recommends: Mechanical Soft, [place] Thickened Liquids, Chopped Meat w/Gravy Activities you can perform: Weight Bearing as Abdiel New Medications: Transport Chair Ultra Lig (Transport Chair Ultra Lig) 1 Mis Mis 1 EA .ROUTE DIRECTED #1 EA Levothyroxine (Synthroid) 112 Mcg Tab 112 MCG PO DAILY@06 Hypothyroidism #30 TAB Discontinued Medications: Apixaban (Eliquis) 5 Mg Tab 5 MG PO BID Blood Clot Prevention #60 Ref 0 TAB Dexamethasone (Dexamethasone) 1 Mg Tab 1 MG PO DAILY Ref 0 TAB Escitalopram (Escitalopram) 10 Mg Tab 10 MG PO DAILY #30 Ref [address] (Nexium) 20 Mg Capdr 20 MG PO DAILY Ref 0 CAP Glipizide (Glipizide) 5 Mg Tab 5 MG PO BIDAC Take 30 minutes before a meal Blood Sugar Management #60 Ref 0 TAB Levothyroxine (Synthroid) 100 Mcg Tab 100 MCG PO DAILY@0600 Thyroid Supplement #30 TAB Loratadine (Claritin) 10 Mg Tab 10 MG PO DAILY Allergy Management Ref 0 TAB Metoprolol Succinate ER 24 HR (Metoprolol Succinate ER 24 HR) 25 Mg Tab 25 MG PO BID #30 Ref 0 TAB Oxycodone Liq (Oxycodone Liq) 20 Mg/Ml Conc 5 MG PO Q4H PRN PAIN Ref 0 ML Oxycodone-Acetaminophen (Oxycodone-Acetaminophen) 5-325 mg Tab 1 TAB PO Q4H PRN pain 2-10 #10 TAB Sennosides (Ex-Lax) 15 Mg Tab 15 MG PO BID PRN CONSTIPATION Ref 0 TAB Tamsulosin (Flomax) 0.4 Mg Cap 0.4 MG PO DAILY Urinary Symptom Managemen #30 CAP Tiotropium Inh (Spiriva Handihaler) 18 Mcg Cap 18 MCG INH DAILY 1 capsule = 18 mcg COPD #30 Ref 0 CAP Berhane Henderson DO Nov 01, 2016 18:00
== END 2016-11-01 19:07 | disposition hospice, inpatient (51) | DRG 291 ==
LOC: N05A 11:53
PROVIDERS: ADMIT Hospitalist; ATTEND Hospitalist
DX: I13.0 Hypertensive heart and chronic kidney disease with heart failure and stage 1 through stage 4 chronic kidney disease, or unspecified chronic kidney disease (principal); I50.23 Acute on chronic systolic (congestive) heart failure; G93.41 Metabolic encephalopathy; L89.159 Pressure ulcer of sacral region, unspecified stage; C77.9 Secondary and unspecified malignant neoplasm of lymph node, unspecified; I82.601 Acute embolism and thrombosis of unspecified veins of right upper extremity; C78.00 Secondary malignant neoplasm of unspecified lung; C79.51 Secondary malignant neoplasm of bone; I42.9 Cardiomyopathy, unspecified; I48.2 Chronic atrial fibrillation; C76.0 Malignant neoplasm of head, face and neck; D64.9 Anemia, unspecified; E03.9 Hypothyroidism, unspecified; J44.9 Chronic obstructive pulmonary disease, unspecified; E78.5 Hyperlipidemia, unspecified; Z87.891 Personal history of nicotine dependence; N18.9 Chronic kidney disease, unspecified; Z66 Do not resuscitate; Z79.01 Long term (current) use of anticoagulants; E11.40 Type 2 diabetes mellitus with diabetic neuropathy, unspecified; Z79.84 Long term (current) use of oral hypoglycemic drugs; K59.00 Constipation, unspecified; I25.10 Atherosclerotic heart disease of native coronary artery without angina pectoris
CPT/HCPCS: 36430; 36591; 71010; 80048; 80053; 80076; 82140; 82948; 83735; 83880; 84439; 84443; 84481; 85025; 85027; 85610; 85730; 86850; 86900; 86901; 86920; 93005; 93306; 93970; 93971; 95819; J1170; J1815; J1940; J3420; J3475; J8540; P9016